=== PATIENT | female | born 1955 | race African-American/Black ===

== ENCOUNTER 2020-01-23 06:26 | Inpatient (IN) | payer OTHER, SELFPAY ==
[2020-01-23] MEDS ORDERED: Morphine 4 MG/ML VIAL ONE ×2 (06:50→09:08)
[2020-01-23] MEDS ORDERED: Ondansetron PF 4 MG/2 ML Vial ONE ×2 (06:50→12:42)
[2020-01-23 07:31] LABS: #Lymphocytes 0.7 thou/uL (1.20-3.40); #Monocytes 0.3 thou/uL (0.11-0.59); #Neutrophils 4.7 thou/uL (1.40-6.50); %Basophils 0.5 % (0.0-1.0); %Eosinophils 0.2 % (0.0-10.0); %Lymphocytes 11.8 % (21.0-51.0); %Monocytes 5.7 % (0.0-10.0); %Neutrophils 81.8 % (42.0-75.0); Hemoglobin 10.8 g/dL (12.0-16.0); Mean Corpuscular HGB CONC 31.3 g/dL (32.0-36.0); Mean Corpuscular Hemoglobin 24.8 pg (27.0-31.0); Mean Corpuscular Volume 79.4 fL (78.0-98.0); Mean Platelet Volume 9.4 fL (7.4-10.4); Platelet Count 302 thou/uL (130-400); RBC Distribution Width 15.8 % (11.5-14.5); Red Blood Cell (RBC) Count 4.33 mill/uL (4.20-5.40); White Blood Cell (WBC) Count 5.8 thou/uL (4.8-10.8)
[2020-01-23 07:49] LABS: ALT (SGPT) 9 U/L (8-55); AST (SGOT) 20 U/L (5-34); Alkaline Phosphatase 122 U/L (40-110); Anion Gap 18 mmol/L (10-20); BUN (Urea Nitrogen) 13 mg/dL (9.8-20.1); Bilirubin, Total 0.6 mg/dL (0.2-1.2); Calc. Creatinine Clearance 0 mL/min (70-130); Calcium 9.1 mg/dL (7.8-10.44); Carbon Dioxide 21 mmol/L (23-31); Chloride 91 mmol/L (98-107); Estimated GFR-MDRD 84; Globulin 4.6 g/dL (2.4-3.5); Glucose 125 mg/dL (80-115); Lipase 15 U/L (8-78); Potassium 3.6 mmol/L (3.5-5.1); Protein, Total 8.6 g/dL (6.0-8.3); Sodium 126 mmol/L (136-145)
[2020-01-23 08:02] LABS: Bacteria/HPF 4+ HPF (None Seen); Bilirubin 1+ (Negative); Blood, Urine Negative (Negative); Clarity Turbid (Clear); Glucose, Urine (Dipstick) Normal (Negative); Leukocyte 250 Leu/uL (Negative); Nitrite Negative (Negative); Protein, Urine (Dipstick) 30 mg/dL (Neg-Trace); RBC/HPF None Seen HPF (0-3); Urobilinogen 3 mg/dL (Less than 2)
--- NOTE | 2020-01-23 08:48 | CT ---
CT ABDOMEN AND PELVIS WITH IV CONTRAST: Date: 01/23/2020 HISTORY: Left-sided abdominal pain, bleeding per rectum this morning, vomiting. FINDINGS: The lung bases are clear. The patient is post cholecystectomy. Multiple heterogeneous liver lesions a re seen measuring up to 2.7 cm in the right lobe close to the dome. The patient is post cholecystecto my. There are calcifications in the pancreas with markedly dilated 9mm pancreatic duct. The spleen, a drenal glands, and right kidney are normal. There is a small low density lesion in the superior pole of the left kidney, likely cyst. There is a tiny amount of free fluid in the pelvis. No free air is s een. No lymphadenopathy is identified. Uterus is present. There is a mass in the sigmoid colon in the left lower quadrant with proximal dilatation of the colon and small bowel loops. There are vascular calcifications without evidence of aneurysmal dilatation of the abdominal aorta. T here are degenerative changes in the spine. IMPRESSION: 1. Findings are highly suspicious for an obstructing sigmoid colon mass in the left lower quadrant w ith resultant bowel obstruction. Further evaluation with colonoscopy is recommended. 2. Multiple liver lesions are suspicious for metastatic disease. 3. Chronic pancreatitis with dilated pancreatic duct. Endoscopic ultrasound would be helpful to excl ude pancreatic mass. POS: CHELAA
[2020-01-23] MEDS ORDERED: Lidocaine 2% PF 5 ML VIAL ONE (09:16)
[2020-01-23] MEDS ORDERED: Lidocaine Viscous Sol 2% 15 ml UD Cup ONE (09:16)
[2020-01-23] MEDS ORDERED: Benzocaine 20% Spray 60 ML CAN ONE (09:16)
[2020-01-23] MEDS ORDERED: Lidocaine 2% MPF 10 ML AMP (For Epidural Use) ONE (09:17)
[2020-01-23] MEDS ORDERED: Lidocaine 4% Topical Sol 50 ML BOT ONE (09:18)
--- NOTE | 2020-01-23 10:53 | RAD ---
PORTABLE CHEST: Date: 01/23/2020 HISTORY: Dyspnea. FINDINGS: Heart size is borderline for portable technique. NG tube is seen with tip in the fundus of the stomac h. Lungs appear clear of infiltrates. No signs of failure. IMPRESSION: Borderline heart size. POS: MIGDALIA
[2020-01-23 11:11] LABS: Prothrombin Time 12.9 SEC (12.0-14.7)
[2020-01-23] MEDS ORDERED: Dextrose 5% in Water 1,000 ML IV PRN (11:29)
[2020-01-23] MEDS ORDERED: hydrALAZINE 20 MG/ML VIAL SLOW IVP PRN (11:29)
[2020-01-23] MEDS ORDERED: Morphine 2 MG/ML SYRINGE SLOW IVP PRN (11:29)
--- NOTE | 2020-01-23 11:30 | HP ---
HISTORY: Ms. Almanzar is a 64-year-old woman, who does not seek routine health care. The patient presented to emergency department today given a history of worsening abdominal pain and distention over the last 2 weeks. Last bowel movement was over a week ago. Does not recall last time she passed flatus. She has had intermittent bloody bowel movements dating over 3 weeks now. She also admits to significant weight loss over the last one year in excess of 20 pounds. She admits to some nausea and emesis over the last 48 hours. She denies any fevers or chills. She admits to worsening fatigue over the last 2 to 3 months. She endorses anorexia. PAST MEDICAL HISTORY: She denies any previous medical problems, although she has been told in the past that she has hypertension, for which she seeks no treatment. PAST SURGICAL HISTORY: Pertinent for cholecystectomy 5 to 6 years ago. SOCIAL HISTORY: She is , lives at home with her , who has chronic kidney disease, dialysis dependent and chronic congestive heart failure. She denies any cigarette smoking, ethanol or illicit drug abuse. FAMILY HISTORY: Notable for diabetes mellitus and essential hypertension as well as heart disease in her mother and her father with heart disease. She denies any family history of cancer or inflammatory bowel disease. CURRENT MEDICATIONS: None. ALLERGIES: THE PATIENT DENIES ANY KNOWN DRUG ALLERGIES. REVIEW OF SYSTEMS: Ten-point review of systems essentially unremarkable except as stated in past medical history and chief complaint. PHYSICAL EXAMINATION: GENERAL: This reveals a 64-year-old frail and thin-appearing woman, who otherwise appears stated age and is in no acute distress at time of my evaluation. HEENT: Pupils equal, round, reactive to light and accommodation. NECK: She has no jugular venous distention noted. HEART: Regular rate and rhythm. No murmurs or gallops auscultated. LUNGS: Clear to auscultation bilaterally. Her breathing is regular and nonlabored. ABDOMEN: Soft and distended. Mild tenderness to palpation with no gross rebound tenderness present. Liver and spleen nonpalpable below costal margin. No abdominal wall hernias are palpable. EXTREMITIES: She has a palpable fullness in the left lower quadrant medial to the ASIS. NEUROLOGIC: No focal deficits present. LABORATORY FINDINGS: Today include a CBC with 5800 white blood cells, hemoglobin and hematocrit of 10.8 and 34.4 respectively. Platelet count is 302,000. Metabolic profile; sodium 126, potassium 3.6, chloride 91, bicarb 21, BUN 13, creatinine 0.83, and glucose 125. Total bilirubin is 0.6, AST and ALT are 20 and 9 respectively. Alkaline phosphatase is 122. Serum lipase is normal at 15. I have personally reviewed the CT scan of the abdomen and pelvis, which is remarkable for complete large bowel obstruction with transition zone in the mid sigmoid colon with an associated sigmoid colonic mass. Multiple small abnormal densities were seen within the liver suspicious for metastatic disease. Additionally, multiple calcifications were seen within the pancreas with associated pancreatic ductal dilatation. IMPRESSION: 1. Acute large bowel obstruction secondary to obstructing sigmoid colon neoplasm. 2. Multiple liver lesions, highly suspicious for metastatic disease. 3. Probable chronic pancreatitis. PLAN: 1. Exploratory laparotomy, sigmoidectomy with end colostomy. 2. No surgical indication for the chronic pancreatitis at this time. 3. The patient will certainly need endoscopic ultrasound electively in about 3 months after this surgery to exclude pancreatic neoplasm as etiology of the pancreatic ductal dilatation. Above findings and plan has been discussed with the patient, who indicates understanding of information given. Postoperatively, once pathology report is obtained, we will consult Oncology. The patient has granted consent for this admission and surgical intervention. I have answered all her questions. Job ID: [id number]
[2020-01-23 11:34] VITALS: BMI 24.4
[2020-01-23] MEDS ORDERED: Iopamidol-370 76% 500 ML 1 ML ONE (11:34)
[2020-01-23] MEDS: Ketorolac Tromethamine 30 MG/ML VIAL IVP SCH ×2 (12:19→19:30)
[2020-01-23] MEDS: Sodium Chloride 0.9% 1,000 ML IV SCH ×2 (12:26→20:00)
[2020-01-23] MEDS ORDERED: Prevnar 13-Val Conj/PF 0.5 ML SYRINGE IM ONE (12:30)
[2020-01-23] MEDS ORDERED: Glycopyrrolate 0.2 MG/ML 5 ML SYRINGE ONE (12:42)
[2020-01-23] MEDS ORDERED: Succinylcholine Chloride 20 MG/ML 10 ml SYRINGE FS ONE (12:42)
[2020-01-23] MEDS ORDERED: Dexamethasone 20 MG/5 ML VIAL ONE (12:42)
[2020-01-23] MEDS ORDERED: Lidocaine 1% PF 5 ML VIAL ONE (12:42)
[2020-01-23] MEDS ORDERED: Rocuronium Bromide 10 MG/ML (10ML VIAL) ONE (12:42)
[2020-01-23] MEDS ORDERED: PROPOFOL 200 MG/20 ML VIAL ONE (12:42)
[2020-01-23] MEDS ORDERED: Midazolam HCl 2 mg/2 ml Vial ONE (12:56)
[2020-01-23] MEDS ORDERED: Fentanyl 250 MCG/5 ML VIAL ONE (12:56)
[2020-01-23] MEDS ORDERED: Lidocaine 1% w/Epinephrine 1:100K 20 ML VIAL ONE (12:58)
[2020-01-23] MEDS ORDERED: Bupivacaine PF 0.5% 30 ML VIAL ONE (12:58)
[2020-01-23] MEDS ORDERED: Fentanyl 100 MCG/2 ML VIAL ONE ×4 (13:17→17:54)
[2020-01-23] MEDS ORDERED: Sodium Chloride 0.9% 30 ML ONE (13:55)
[2020-01-23] MEDS ORDERED: Hetastarch 6% 500 ML 500 ML ONE (14:50)
[2020-01-23] MEDS ORDERED: diphenhydrAMINE 50 MG/ML VIAL IM PRN (16:32)
[2020-01-23] MEDS ORDERED: Naloxone HCl 0.4 mg/ml Vial IV PRN (16:32)
[2020-01-23] MEDS ORDERED: HYDROmorphone 10 mg/100 ml CADD IVPB PRN (16:32)
[2020-01-23] MEDS ORDERED: diphenhydrAMINE 25 MG CAP PO PRN (16:32)
[2020-01-23] MEDS ORDERED: Promethazine HCl 25 MG/ML VIAL IM PRN ×2 (16:32→16:40)
[2020-01-23] MEDS ORDERED: Metoprolol Tartrate 5 MG/5 ML VIAL IVP PRN (16:33)
[2020-01-23] MEDS ORDERED: hydrALAZINE 20 MG/ML VIAL ONE (16:33)
[2020-01-23] MEDS ORDERED: Labetalol HCl 100 MG/20 ML VIAL ONE (16:35)
[2020-01-23] MEDS ORDERED: Ketorolac Tromethamine 30 MG/ML VIAL IVP PRN (16:40)
[2020-01-23] MEDS ORDERED: HYDROmorphone 2 MG/ML VIAL SLOW IVP PRN (16:40)
[2020-01-23] MEDS ORDERED: Promethazine HCl 25 MG/ML VIAL SLOW IVP PRN (16:40)
[2020-01-23] MEDS ORDERED: Labetalol HCl 100 MG/20 ML VIAL SLOW IVP PRN (16:40)
[2020-01-23] MEDS ORDERED: Meperidine HCl/PF 25 MG/ML VIAL SLOW IVP PRN (16:40)
[2020-01-23] MEDS ORDERED: Communication Order-Pharmacy FS SCH (16:45)
[2020-01-23] MEDS ORDERED: hydrALAZINE 20 MG/ML VIAL SLOW IVP SCH (16:45)
[2020-01-23 18:36] LABS: Anisocytosis SLIGHT = 6-15 cells (100X) (0-5/hpf); Band 53 % (5-11); Hemoglobin 7.4 g/dL (12.0-16.0); Hypochromia SLIGHT = 6-15 cells (100X) (0-5/hpf); Lymphocytes 4 % (21-51); MDiff Complete? YES; Mean Corpuscular HGB CONC 31.9 g/dL (32.0-36.0); Mean Corpuscular Hemoglobin 25.8 pg (27.0-31.0); Mean Corpuscular Volume 80.8 fL (78.0-98.0); Mean Platelet Volume 9.1 fL (7.4-10.4); Monocytes 4 % (0-10); Neutrophil 39 % (42-75); Platelet Count 249 thou/uL (130-400); Platelet Morphology Comment Appears Adequate; Polychromasia MODERATE = 3-4 cells (100X) (0-2/hpf); RBC Distribution Width 15.5 % (11.5-14.5); Red Blood Cell (RBC) Count 2.88 mill/uL (4.20-5.40); Reflex for Review?? NO; Target Cells SLIGHT = 2-5 cells (100X) (0-1/hpf); White Blood Cell (WBC) Count 3.5 thou/uL (4.8-10.8)
[2020-01-23] MEDS: Famotidine/PF 20 mg/2ml Vial SLOW IVP SCH (21:04)
[2020-01-23 22:18] LABS: Hemoglobin 8.1 g/dL (12.0-16.0); Platelet Count 251 thou/uL (130-400)
[2020-01-23] MEDS ORDERED: Hydrocortisone Sod Succ/PF 100 mg/2 ml Vial IVP SCH (23:15)
--- NOTE | 2020-01-23 23:56 | OP ---
DATE OF PROCEDURE: 01/23/2020 PREOPERATIVE DIAGNOSES: 1. Acute large bowel obstruction secondary to obstructing sigmoid colon mass. 2. Liver metastasis. POSTOPERATIVE DIAGNOSES: 1. Acute large bowel obstruction secondary to obstructing sigmoid colon mass. 2. Liver metastasis. 3. Small bowel implants. PROCEDURES PERFORMED: 1. Exploratory laparotomy. 2. Sigmoidectomy with end-colostomy. 3. Segmental small bowel resection with primary anastomosis. 4. Wedge liver biopsy. 5. Takedown of splenic flexure. 6. Placement of triple -lumen left subclavian central veinous catheter ANESTHESIA: General endotracheal. ESTIMATED BLOOD LOSS: 100 mL. FLUIDS GIVEN: 500 mL of Hespan and 2000 mL crystalloids. COUNTS: Sponge and instrument counts were verified as correct x2. COMPLICATIONS: None apparent at the time of operation. INDICATIONS FOR OPERATION: This is a 64-year-old woman, who presented to emergency department with progressive abdominal distention and pain over 2 weeks. This is associated with profound weight loss over the last one year. Clinical radiographic examination was consistent with acute large bowel obstruction secondary to obstructing sigmoid colon neoplasm. Multiple liver implants also noted on the CT scan. The patient was brought to the operating room for exploration. Findings are consistent with obstructing sigmoid colon mass with adherent distal small bowel to the sigmoid colon mass. Also noted multiple liver implants. DESCRIPTION OF OPERATION: Informed consent was obtained from the patient and brought to the operating room and placed in supine position. Following general anesthesia, the left chest wall was sterilely prepped and draped in usual fashion. The skin below the left clavicle was anesthetized with 1% lidocaine. The left subclavian vein was cannulated with an 18-gauge introducer needle returning dark venous blood. A guidewire was passed through the needle and advanced into the left subclavian vein without resistance. The needle was withdrawn over the guidewire. A stab incision was made adjacent to the guidewire using 11 scalpel. Dilator was passed over the guidewire dilating the subcutaneous tissues. A triple-lumen central venous catheter was advanced over the guidewire and placed in the left subclavian vein without resistance stopping at the 15 cm yo. Guidewire was removed. Dark venous blood was aspirated from all 3 ports, which were individually flushed with saline. Catheter was secured to the anterior chest wall using 3-0 silk suture at two points. Sterile dressings were applied. Attention was directed to the abdomen following placement of Simmons catheter, which was placed to bedside drain. The abdomen was sterilely prepped and draped in usual fashion. A midline incision was made using 10 scalpel. Incision was carried through subcutaneous tissues and maintained hemostasis using cautery. The fascia was incised along the line of the incision exposing the peritoneum, beneath which was grasped x2 with hemostats. The peritoneal cavity was sharply entered using Metzenbaum scissors. The incision was extended superiorly and inferiorly. Bookwalter retractor was put in place to gain exposure. Small bowel was then run from the ligament of Treitz down to the distal ileum, which was adherent to a mass in the sigmoid colon. This was dissected off this mass temporarily. The remainder of the small bowel was then run down to the ileocecal junction finding no other pathology. Large intestine was inspected from the cecum through the ascending, transverse, descending and sigmoid colon down to the level of the large obstructing mass in the mid sigmoid colon. Distal to this mass, the large bowel was completely decompressed down to normal rectum. Liver was palpated with multiple palpable implants. The previous nasogastric tube was palpated within the gastric lumen. The spleen was noted in normal anatomic location. No palpable implants. At this juncture, I decided to proceed with sigmoidectomy. The left colon was mobilized along the white line of Toldt using Metzenbaum scissors alternated with cautery. The dissection was carried down to the pelvis. The sigmoid colon distal to the palpable mass was also mobilized along the white line of Toldt. I then made a rent through the mesorectum, through which a contour stapler was introduced and the bowel was divided. A second rent was then made approximately 5 cm above the level of the sigmoid colonic mass, through which re-loaded contour stapler was introduced. Again, bowel was divided. The mesentery of the specimen was then sterilely divided using LigaSure device with good hemostasis. Specimen was passed off the operative field for transmission to Pathology. I turned my attention to the distal ileum, which was adherent to the colonic mass. I made a rent proximal and distal to the involved segment, through which CYRIL stapler was introduced and bowel was divided. Mesentery of this specimen was sterilely divided using LigaSure with good hemostasis. Specimen was passed off for Pathology. The small bowel was then reapproximated in a [id number] fashion, anti- mesenteric border using interrupted sutures of 3-0 silk. Enterotomies were made at both apices, through which a reloaded CYRIL stapler was introduced and the functional end-to-end, but anatomic [id number] enteroenterostomy was perfected. The common enterotomies were closed using a re-loaded CYRIL stapler. Resultant mesenteric defect was closed using a running stitch of 2-0 Vicryl. At this juncture, a core incision was made in the left lower quadrant using a 10 scalpel. Incision was carried down to the level of the fascia. I introduced a tonsil clamp through this stab incision, advancing the tip into the peritoneal cavity. Care was taken to avoid injuries to underlying structures. The defect was dilated to two fingerbreadths. Ganga forceps were introduced through this cord defect grasping the stapled end of the descending colon, which was pulled through and secured within the abdominal cavity using interrupted sutures of 3-0 silk at three points. At this juncture, all sponges and instruments were counted as correct x2. Small bowel returned to normal anatomic location. The abdomen was irrigated with saline. The fascia was closed using a running stitch of #1 single stranded PDS. Subcutaneous tissues were pulse lavaged with sterile saline. Good hemostasis was noted in place. Skin incisions were closed using dylan. Sterile dressings were applied. Attention was then directed to the stapled end of the descending colon, which will be used to perform the ostomy. The staple line was excised using Quinn scissors. The functional Leticia colostomy was perfected using interrupted sutures of 3-0 Vicryl. Ostomy appliance put in place. The patient tolerated the operation without any apparent complication and was returned to recovery room in satisfactory condition. Job ID: [id number] [facility]
[2020-01-24] MEDS: Ketorolac Tromethamine 30 MG/ML VIAL IVP SCH ×5 (00:53→23:48)
[2020-01-24 04:43] LABS: Anion Gap 12 mmol/L (10-20); BUN (Urea Nitrogen) 19 mg/dL (9.8-20.1); Calc. Creatinine Clearance 69 mL/min (70-130); Calcium 7.5 mg/dL (7.8-10.44); Carbon Dioxide 20 mmol/L (23-31); Chloride 102 mmol/L (98-107); Estimated GFR-MDRD 73; Glucose 110 mg/dL (80-115); Magnesium 2.3 mg/dL (1.6-2.6); Potassium 4.4 mmol/L (3.5-5.1); Sodium 130 mmol/L (136-145)
[2020-01-24 05:08] LABS: Band 46 % (5-11); Hemoglobin 7.4 g/dL (12.0-16.0); Hypochromia SLIGHT = 6-15 cells (100X) (0-5/hpf); Lymphocytes 4 % (21-51); MDiff Complete? YES; Mean Corpuscular HGB CONC 31.6 g/dL (32.0-36.0); Mean Corpuscular Hemoglobin 25.5 pg (27.0-31.0); Mean Corpuscular Volume 80.6 fL (78.0-98.0); Mean Platelet Volume 9.6 fL (7.4-10.4); Metamyelocyte 1 % (0-0); Monocytes 5 % (0-10); Neutrophil 44 % (42-75); Platelet Count 227 thou/uL (130-400); RBC Distribution Width 15.6 % (11.5-14.5); Red Blood Cell (RBC) Count 2.89 mill/uL (4.20-5.40); White Blood Cell (WBC) Count 6.7 thou/uL (4.8-10.8)
[2020-01-24] MEDS: Hydrocortisone Sod Succ/PF 100 mg/2 ml Vial IVP SCH ×4 (05:45→23:48)
--- NOTE | 2020-01-24 07:02 | PRG ---
DATE OF SERVICE: 01/24/2020 SUBJECTIVE: Ms. Almanzar is a 64-year-old female, who is status post exploratory laparotomy, segmental small bowel resection with primary anastomosis, wedge liver biopsy, take-down of splenic flexure and sigmoidectomy with end-colostomy. This afternoon, the patient was reported to be hypertensive in the PACU, which she had treated. After that, her blood pressure is little bit soft. During this late afternoon, blood pressure is 86 to 90 systolic. Urine is 100 in 3 hours. Blood pressure still continued to be soft; however, she is alert and awake. Pain is well controlled by the TIER LIFT OPERATOR. She reports still no gas or bowel. Pain is well controlled. OBJECTIVE: GENERAL: Currently, the patient is lying in bed comfortable with no acute respiratory distress. VITAL SIGNS: Currently, blood pressure is 100/50_, heart rate is 75, O2 saturation is 96% on 2 L, and temperature is 98.6. LUNGS: Clear bilaterally. HEART: Regular rate and rhythm. ABDOMEN: Soft, mildly distended, pain on incision. Bowel sounds hypoactive. EXTREMITIES: Neurovascularly intact x4. NEUROLOGIC: No focal neurologic deficits. ASSESSMENT: Status post exploratory laparotomy with segmental small bowel resection with primary anastomosis due to small bowel obstruction, secondary to obstructing sigmoid colon mass. Postop day 0. PLAN: The patient will have 500 of normal saline bolus and continue fluid maintenance at 120 an hour. Due to the cortisone level is 19, the patient will have hydrocortisone 100 mg and then 25 mg q.6 hours after that. Recheck H and H. Hemoglobin is 8.1. No blood transfusion for now. Anticipate working with Physical Therapy, Occupational Therapy, and continue n.p.o. with ice chips allowed. Job ID: [id number] [facility] [place]
[2020-01-24] MEDS: Ascorbic Acid 500 mg Chewable Tablet PO SCH ×2 (08:37→17:42)
[2020-01-24] MEDS: Ferrous Sulfate 325 MG TAB PO SCH ×2 (08:37→17:42)
[2020-01-24] MEDS: Famotidine/PF 20 mg/2ml Vial SLOW IVP SCH ×2 (08:37→19:59)
--- NOTE | 2020-01-24 10:07 | PRG ---
DATE OF SERVICE: 01/24/2020 SUBJECTIVE: Ms. Almanzar is a 64-year-old woman who is postop day #1, status post sigmoidectomy with end colostomy and wedge liver biopsy. She is awake and alert this morning reporting adequate pain control. Blood pressure has been essentially soft overnight. She has been placed on hydrocortisone for acute adrenal insufficiency. Urinary output is also marginal. OBJECTIVE: VITAL SIGNS: This morning include blood pressure 93/61, pulse 92, respiratory rate is 18, temperature is 96 degrees Fahrenheit, oxygen saturation is 96% on room air. HEENT: Pupils are equal, round, and reactive to light and accommodation. She has no scleral icterus present. There is no jugular venous distention noted. HEART: Reveals regular rate and rhythm. No murmurs or gallops auscultated. LUNGS: Clear to auscultation bilaterally. Breathing, regular and nonlabored. ABDOMEN: Soft and nondistended. Colostomy is viable and edematous. No stool or gas output at the moment. Incision is intact and dry. NEUROLOGIC: Reveals no focal deficits present. LABORATORY FINDINGS: Include a CBC with 6700 white blood cells, hemoglobin and hematocrit are 7.4 and 23.3 respectively. Platelet count is 227,000. Metabolic profile; sodium 130, potassium 4.4, chloride is 102, bicarb is 20, BUN is 19, creatinine is 0.94, glucose is 110. Magnesium 2.3 and phosphorus 4. Cortisol level is 19.7. IMPRESSION: 1. Postoperative day #1 status post exploratory laparotomy, sigmoidectomy with end colostomy and wedge liver biopsy. 2. Sigmoid colon mass, likely metastatic colon cancer, pathology pending. 3. Acute blood loss on concomitant chronic anemia. 4. Acute hyponatremia, resolving. 5. Acute adrenal insufficiency. PLAN: 1. Continue fluid resuscitation. Monitor urinary output as endpoint. 2. The patient will be transfused 1 unit of packed red blood cells. 3. The patient will be started on iron replacement and vitamin C. 4. Increase activity. The patient is certainly hemodynamically stable for transfer to general surgical floor where we will increase activity per Physical and Occupational Therapy. Oncology consultation is pending the pathology report. Job ID: [id number]
[2020-01-24] MEDS: Sodium Chloride 0.9% 1,000 ML IV SCH ×2 (10:13→18:19)
[2020-01-24] MEDS: diphenhydrAMINE 50 MG/ML VIAL IVP PRN ×3 (10:57→23:48)
--- NOTE | 2020-01-24 11:14 | RAD ---
PORTABLE CHEST: Date: 01/24/2020 HISTORY: Central line placement. COMPARISON: 01/23/2020. FINDINGS: Central line via the left subclavian vein has been placed. The tip overlies the upper SVC and appears adequately positioned. A NG tube remains in place with tip passing through the EG junction and residing in the upper left qu adrant. The lungs appear clear. No acute process apparent. IMPRESSION: Central line appears adequately positioned on chest x-ray. POS: [facility]
--- NOTE | 2020-01-25 01:31 | PRG ---
DATE OF SERVICE: 01/24/2020 SUBJECTIVE: Ms. Almanzar was seen on rounds this evening. The patient was transferred from [facility] today. The patient reports pain is well controlled. Her blood pressure has been stable 100 to 120 systolic. She is feeling better. She had some bowel on her ileostomy. She developed no fever or shortness of breath. She is able to walk around the room with minimal difficulty. OBJECTIVE: GENERAL: Currently, the patient is lying in bed comfortable with no acute respiratory distress. VITAL SIGNS: Temperature is 98, heart rate 100s, respiratory rate 18, O2 saturation 99% on room air, blood pressure 137/76. LUNGS: Clear bilaterally. HEART: Regular rate and rhythm. ABDOMEN: Soft, mildly distended. Some stool on ileostomy. EXTREMITIES: Neurovascularly intact. ASSESSMENT: Status post exploratory laparotomy with segmental small bowel resection and primary anastomosis due to small bowel obstruction secondary to obstruction of sigmoid colon mass, postop day #1, adrenal insufficiency, low urine output due to acute blood loss anemia on chronic anemia and hypovolemia, improved. PLAN: We will continue supportive care. Continue pain control. Continue working with physical therapy and occupational therapy. Anticipate advance diet for clear liquids tomorrow. Job ID: [id number]
[2020-01-25 03:44] LABS: #Lymphocytes 0.2 thou/uL (1.20-3.40); #Monocytes 0.4 thou/uL (0.11-0.59); #Neutrophils 4.7 thou/uL (1.40-6.50); %Monocytes 6.6 % (0.0-10.0); %Neutrophils 89.4 % (42.0-75.0); Hemoglobin 7.5 g/dL (12.0-16.0); Mean Corpuscular HGB CONC 31.4 g/dL (32.0-36.0); Mean Corpuscular Hemoglobin 26.2 pg (27.0-31.0); Mean Corpuscular Volume 83.3 fL (78.0-98.0); Mean Platelet Volume 9.3 fL (7.4-10.4); Platelet Count 193 thou/uL (130-400); RBC Distribution Width 15.1 % (11.5-14.5); Red Blood Cell (RBC) Count 2.85 mill/uL (4.20-5.40); White Blood Cell (WBC) Count 5.3 thou/uL (4.8-10.8)
[2020-01-25 03:54] LABS: Anion Gap 9 mmol/L (10-20); BUN (Urea Nitrogen) 26 mg/dL (9.8-20.1); Calc. Creatinine Clearance 78 mL/min (70-130); Carbon Dioxide 23 mmol/L (23-31); Chloride 106 mmol/L (98-107); Estimated GFR-MDRD 83; Glucose 106 mg/dL (80-115); Potassium 4.2 mmol/L (3.5-5.1); Sodium 134 mmol/L (136-145)
[2020-01-25] MEDS: Ketorolac Tromethamine 30 MG/ML VIAL IVP SCH (05:32)
[2020-01-25] MEDS: Hydrocortisone Sod Succ/PF 100 mg/2 ml Vial IVP SCH ×3 (05:33→17:46)
[2020-01-25] MEDS: diphenhydrAMINE 50 MG/ML VIAL IVP PRN (05:33)
[2020-01-25] MEDS: Sodium Chloride 0.9% 1,000 ML IV SCH ×2 (05:37→09:41)
[2020-01-25] MEDS: Ascorbic Acid 500 mg Chewable Tablet PO SCH ×2 (09:40→15:59)
[2020-01-25] MEDS: Famotidine 20 MG TAB PO SCH ×2 (09:41→19:34)
[2020-01-25] MEDS: Ferrous Sulfate 325 MG TAB PO SCH ×2 (09:41→15:59)
[2020-01-25] MEDS ORDERED: traMADol HCl 50 MG TAB PO PRN ×2 (10:59)
[2020-01-25] MEDS ORDERED: Ibuprofen 800 MG TAB PO SCH (11:00)
--- NOTE | 2020-01-25 12:10 | PRG ---
DATE OF SERVICE: 01/25/2020 SUBJECTIVE: Ms. Almanzar is a 64-year-old woman postop day #2, status post exploratory laparotomy, sigmoidectomy with end colostomy and wedge liver biopsy. The patient has colon mass which is presumed metastatic adenocarcinoma. She is awake and alert this morning. Reports adequate pain control. Ostomy is functional with semi-formed stool. The patient reportedly had brief episodes of generalized seizure this morning which lasted less than 10 seconds witnessed by the patient's nurse. She had no urinary incontinence. This morning, she is quite awake and alert. Farhan coma Scale is 15. OBJECTIVE: VITAL SIGNS: Include blood pressure 129/68, pulse 97, respiratory rate is 16, temperature 98.4 degrees Fahrenheit, oxygen saturation is 97% on room air. HEENT: Pupils equal, round, reactive to light and accommodation. She has no jugular venous distention noted. HEART: Reveals regular rate and rhythm. No murmurs or gallops auscultated. LUNGS: Clear to auscultation bilaterally. Her breathing is regular and nonlabored. ABDOMEN: Soft and nondistended. Incision is intact and dry. Colostomy is viable and functional with stool and gas. She clearly has no peritoneal signs on examination. LABORATORY FINDINGS: Today include a CBC with 5300 white blood cells, hemoglobin and hematocrit stable at 7.5 and 23.7 respectively. The platelet count is 193,000. Metabolic profile; sodium 134, potassium is 4.2, chloride is 106, bicarb is 23, BUN is 26, creatinine 0.84, glucose is 106. Prolactin level is 27.59. Pathology report is pending at the time of this dictation. IMPRESSIONS: 1. Postop day #2 status post exploratory laparotomy, sigmoidectomy with wedge liver biopsy for colon obstruction secondary to colonic neoplasm. 2. Colon neoplasm likely metastatic adenocarcinoma. Pathology report is pending. 3. Apparent seizure activity. PLAN: 1. Continue with iron replacement therapy. 2. We will consult Oncology for probable stage IV metastatic colon cancer. 3. Given the apparent seizure activity in this patient with likely metastatic disease, we will obtain a brain CT scan to rule out any brain metastasis. 4. Nasogastric tube will be discontinued and the patient started on oral intake. 5. Simmons catheter and IV fluid would also be discontinued at this time. 6. The patient is encouraged to increase activity per Physical and Occupational therapy. 7. Ostomy teaching will commence per wound nursing. Above findings and plan discussed with the patient, who indicates understanding of information given. Job ID: [id number]
--- NOTE | 2020-01-25 12:19 | CT ---
Exam: Head CT with and without contrast HISTORY: Headache. Dizziness. Recent diagnosis of liver cancer. COMPARISON: None FINDINGS: Noncontrast head CT: No parenchymal hemorrhage No extra-axial hematoma No midline shift Basilar cisterns are patent. Brain volume, age-appropriate. Cortical wolf-white matter differentiation is preserved No hydrocephalus Adequate aeration of the paranasal sinuses and mastoid air cells. Intact calvarium. Postcontrast images: No pathologic enhancement of the brain parenchyma IMPRESSION: 1. No acute intracranial process 2. No pathologic enhancement of the brain parenchyma
[2020-01-25] MEDS: Acetaminophen 500 MG TAB PO SCH ×2 (12:40→17:45)
[2020-01-25] MEDS: traMADol HCl 50 MG TAB PO SCH ×2 (12:41→17:45)
[2020-01-25] MEDS ORDERED: Iopamidol 370 76% 100 ML VIAL ONE (14:10)
[2020-01-25] MEDS: Ibuprofen 200 MG TAB PO SCH ×2 (14:23→19:35)
[2020-01-25] MEDS: traMADol HCl 50 MG TAB PO PRN (16:00)
[2020-01-25] MEDS: Acetaminophen 325 MG TAB PO SCH (18:07)
[2020-01-26] MEDS: Acetaminophen 325 MG TAB PO SCH ×5 (00:25→23:39)
[2020-01-26] MEDS: traMADol HCl 50 MG TAB PO SCH ×5 (00:26→23:39)
[2020-01-26] MEDS: Sulfameth/Trimethoprim DS 800-160mg TAB PO SCH ×2 (00:26→08:36)
[2020-01-26] MEDS: Cyclobenzaprine 10 MG TAB PO PRN (00:29)
--- NOTE | 2020-01-26 01:30 | PRG ---
DATE OF SERVICE: 01/25/2020 SUBJECTIVE: Ms. Almanzar is currently in surgical floor. The patient was seen on round this evening. The patient is alert and awake. Reports pain is well controlled. She tolerated with her liquid diet. Vital signs stable. She developed no fever or shortness of breath. Her ostomy is working with stool coming out at the moment. She reports no nausea or vomiting. Her urine is adequate. OBJECTIVE: GENERAL: Currently patient lying in bed comfortable with no acute respiratory distress. LUNGS: Clear bilaterally. HEART: Regular rate and rhythm. ABDOMEN: Soft, nondistended. Incision dry and intact. Colostomy is viable and functional with stool and gas. ASSESSMENT: Status post exploratory laparotomy, sigmoidectomy secondary to colonic neoplasm. PLAN: Plan will be to continue supportive care. Continue pain control. We will check CBC tomorrow. Encourage working with Physical Therapy and Occupational Therapy. UA result shows UTI. We will start Bactrim treatment for UTI for three days. Job ID: [id number]
[2020-01-26] MEDS: traMADol HCl 50 MG TAB PO PRN ×2 (05:00→23:40)
[2020-01-26] MEDS: Ibuprofen 200 MG TAB PO SCH ×3 (05:00→21:48)
[2020-01-26 06:20] LABS: Band 21 % (5-11); Hemoglobin 8.6 g/dL (12.0-16.0); Hypochromia SLIGHT = 6-15 cells (100X) (0-5/hpf); Lymphocytes 5 % (21-51); MDiff Complete? YES; Mean Corpuscular HGB CONC 31.8 g/dL (32.0-36.0); Mean Corpuscular Hemoglobin 26.1 pg (27.0-31.0); Mean Platelet Volume 8.9 fL (7.4-10.4); Monocytes 45 % (0-10); Neutrophil 29 % (42-75); Platelet Count 213 thou/uL (130-400); Platelet Morphology Comment Appears Adequate; RBC Distribution Width 15.2 % (11.5-14.5); Red Blood Cell (RBC) Count 3.32 mill/uL (4.20-5.40)
[2020-01-26] MEDS ORDERED: Sodium Chloride 0.9% 1,000 ML IV SCH (07:00)
[2020-01-26] MEDS: Famotidine 20 MG TAB PO SCH ×2 (08:36→21:47)
[2020-01-26] MEDS: Ascorbic Acid 500 mg Chewable Tablet PO SCH ×2 (08:36→17:10)
[2020-01-26] MEDS: Ferrous Sulfate 325 MG TAB PO SCH ×2 (08:36→17:09)
[2020-01-26] MEDS ORDERED: Morphine 4 MG/ML VIAL ONE (09:57)
[2020-01-26] MEDS ORDERED: Morphine 4 MG/ML VIAL SLOW IVP SCH (10:00)
[2020-01-26 11:00] LABS: Anion Gap 11 mmol/L (10-20); BUN (Urea Nitrogen) 23 mg/dL (9.8-20.1); Calc. Creatinine Clearance 80 mL/min (70-130); Carbon Dioxide 19 mmol/L (23-31); Chloride 101 mmol/L (98-107); Estimated GFR-MDRD 85; Glucose 86 mg/dL (80-115); Magnesium 2.7 mg/dL (1.6-2.6); Phosphorus 3.8 mg/dL (2.3-4.7); Potassium 3.8 mmol/L (3.5-5.1); Sodium 127 mmol/L (136-145)
--- NOTE | 2020-01-26 11:36 | PRG ---
DATE OF SERVICE: 01/26/2020 SUBJECTIVE: Ms. Almanzar is a 64-year-old woman, postoperative day #3, status post exploratory laparotomy, sigmoidectomy with end colostomy, and wedge liver biopsy. She is awake and alert this morning. Reports adequate pain control. Colostomy has been functional. Urinary output is adequate for the patient's age and weight. OBJECTIVE: VITAL SIGNS: Includes blood pressure 126/76, pulse 75, respiratory rate is 14, temperature 97.9 degrees Fahrenheit, and oxygen saturation is 100% on room air. HEART: Reveals regular rate and rhythm. LUNGS: Clear to auscultation bilaterally. Breathing, regular and unlabored. ABDOMEN: Soft and nondistended. Incision is intact. There is minimum redness in the most inferior aspect of the midline incision. The staple was removed and cloudy serous fluid egressed. Colostomy is viable and functional with formed stool and gas. LABORATORY DATA: Laboratory findings include a CBC with 5000 white blood cells, hemoglobin and hematocrit 8.6 and 27.2 respectively. The platelet count is 213,000. Metabolic profile; sodium 127, potassium 3.8, chloride is 101, bicarb is 19, BUN 23, creatinine 0.82, glucose is 86, magnesium 2.7, and phosphorus is 3.8. IMPRESSION: 1. Postop day #3, status post exploratory laparotomy with sigmoidectomy and end colostomy. 2. Acute hyponatremia. 3. Colon neoplasm, likely stage 4 metastatic adenocarcinoma of the colon. Pathology report is pending. PLAN: 1. Advance diet and activity. 2. The patient will be seen by Oncology. 3. Anticipate discharge in next few days. Job ID: [id number]
[2020-01-26] MEDS ORDERED: Piperacillin/Tazobactam 3.375 GM in Sodium Chloride 0.9% 100 ML IVPB SCH (12:00)
--- NOTE | 2020-01-26 15:44 | CT ---
CT THORAX WITH CONTRAST: 01/26/20 HISTORY: 64-year-old female with colon cancer, staging. TECHNIQUE: IV iodinated contrast media: 90 mL Isovue 370 COMPARISON: No previous chest CTs. FINDINGS: In the right side of the T11 vertebral body, there is an ill-defined mildly sclerotic approximately 2 .5 x 1.5 cm osseous lesion questionable for osseous metastatic deposit. There is a moderate amount of free fluid throughout the visualized upper portions of the peritoneal c avity diffusely, but especially in the bilateral upper quadrants. Attenuation is 17 HU, which could r epresent dilute blood. There are numerous foci of extraluminal, free intraperitoneal gas within this free fluid, presumably from recent laparotomy (at least one ventral skin staple is noted). The free f luid is new compared to CT of abdomen and pelvis of 01/23/2020. The previously demonstrated severe dil ation of small bowel loops and dilation of colon, have resolved. There are new small bilateral pleural effusions, with adjacent mild passive atelectasis in the bilate ral lower lobes. No suspicious pulmonary nodules are identified. No mediastinal or hilar lymphadenopa thy. Heavy atherosclerotic calcification of LAD. Small pericardial effusion. No pneumothorax or pulmonary edema. There is a partially imaged large heterogeneously enhancing, well circumscribed left thyroid n odule which measures 3 x 4.5 cm in transverse and AP dimensions. The upper portion of this mass is no t included in the images. It displaces the trachea to the right. There are several moderately low attenuation lesion sin the left and right lobes of the liver highly suspicious for hepatic metastases. There are cholecystectomy clips in the gallbladder fossa. The pancreatic duct is diffusely dilated th roughout the body and tail, up to 5 mm at the tail. At the pancreatic head, the pancreatic duct is mo re severely dilated up to 10 mm. There are scattered tiny calcifications in the pancreatic body and t ail, consistent with chronic pancreatitis. IMPRESSION: 1. New moderate volume of free intraperitoneal fluid. 2. New finding of pneumoperitoneum, apparently due to recent laparotomy. 3. New small bilateral pleural effusions. 4. No evidence of pulmonary metastases. 5. Nonspecific sclerotic lesion at right side of T11 vertebral body. Recommend nuclear medicine whole body bone scan to further evaluate this lesion and to search for other lesions to aid in diagno sis. 6. Moderately large left thyroid nodule. 7. Evidence for hepatic metastases. 8. Diffuse dilation of the pancreatic duct, raising the possibility of occult obstructing lesion at the pancreatic head. 9. Pancreatic calcifications: evidence for chronic pancreatitis. Code T JN R POS: JIN
--- NOTE | 2020-01-26 17:51 | CON ---
DATE OF CONSULTATION: REASON FOR CONSULTATION: Colon cancer. HISTORY OF PRESENT ILLNESS: Ms. Almanzar is a pleasant 64-year-old female who presented to the emergency room on the with abdominal pain and distention, last seen over 2 weeks. She had intermittent bloody stools and weight loss. She underwent an abdominal and pelvis CT scan, which showed an obstructing sigmoid colon mass in the left lower quadrant with bowel obstruction. She had a 2.7 cm mass in the right lobe of her liver. She had a dilated pancreatic duct, consistent with pancreatitis. The patient does have a history of daily alcohol use, marijuana, and tobacco use. She was admitted for bowel obstruction. Dr. Sarah was consulted, and performed an exploratory laparotomy with sigmoidectomy and end colostomy. He noted multiple liver lesions, suspicious for metastatic disease and did a wedge resection of one of those lesions. Pathology of the colon confirmed invasive moderately differentiated adenocarcinoma, 5 cm in greatest dimension. It invaded the adjacent small bowel. There were 5 tumor deposits, 8 lymph nodes were negative for metastatic disease. Her small bowel resection showed focal adenocarcinoma in the subserosal tissue. The margins were free of malignancy. Unfortunately, her liver biopsy confirmed metastatic colorectal adenocarcinoma. She is stage IV cancer. She is recovering at bedside, and denies any complaints of pain. She has good oral intake at this time. She does have hyponatremia, consistent with alcohol use. Her CEA was 13.63 postoperatively. PAST MEDICAL HISTORY: 1. Daily alcohol use. 2. Tobacco use. 3. Marijuana use. 4. Hypertension. PAST SURGICAL HISTORY: Cholecystectomy. ALLERGIES: NO KNOWN DRUG ALLERGIES. HOME MEDICATIONS: Clonidine 0.1 mg daily. FAMILY HISTORY: No known history of cancer. SOCIAL HISTORY: , lives with her spouse, cares for his multiple family members. Again, daily alcohol, tobacco, and marijuana use. REVIEW OF SYSTEMS: A 10-point review of systems is negative. PHYSICAL EXAMINATION: VITAL SIGNS: Temperature 97.6, pulse is 83, respiratory rate 14, BP is 93/60, and she is 96% on room air. GENERAL: This is a thin female, in no acute distress. HEENT: Normocephalic and atraumatic. Pupils are equal and reactive to light. NECK: Supple. CVS: Regular rate. LUNGS: Clear. ABDOMEN: Soft. She has a colostomy in the left lower quadrant. EXTREMITIES: There is no clubbing or cyanosis. SKIN: She had scattered dark discolorations of bilateral chest and arms. NEUROLOGIC: Nonfocal. PERTINENT LABORATORY DATA AND X-RAYS: Current WBCs are 5, hemoglobin 8.6, hematocrit 27.2, platelet count is 213,000, 29% neutrophils, 21% bands, 5% lymphocytes, and 45% monocytes. PT is 12.9, INR is 1, and PTT is 29. Sodium 127, potassium 3.8, chloride 101, CO2 is 19, BUN is 23, creatinine 0.82, and calcium is 8. Phosphorus 3.8. Magnesium 2.7. Bilirubin 0.6, AST is 20, ALT is 9, alkaline phosphatase is 122, serum total protein is 8.6, albumin 4, and globulin 4.6. CEA is 13.63. Urine shows 4+ bacteria with positive leukocyte esterase. ASSESSMENT: 1. Stage IV metastatic adenocarcinoma of the colon. 2. Hyponatremia. 3. Urinary tract infection. DISCUSSION: The patient is recovering from her exploratory laparotomy. She states she has good oral intake. Good output noted in the colostomy. She denies any pain. She will need a MediPort for chemotherapy. This is planned for the next several days and then she will likely go home. She has an appointment to see Dr. Grey on 02/05. She needs to be seen by the financial counselors prior to discharge to assist with applying for financial assistance as she has no insurance. Thank you for the consult. We will be happy to take care of this pleasant lady. Job ID: [id number]
[2020-01-26] MEDS: Amoxicillin/Potassium Clav 875 MG TAB PO SCH (21:48)
[2020-01-26] MEDS: Saccharomyces boulardii 250 MG CAP PO SCH (21:48)
--- NOTE | 2020-01-27 00:50 | PRG ---
DATE OF SERVICE: 01/26/2020 SUBJECTIVE: Ms. Almanzar remained in surgical floor. The patient was seen on round this evening. The patient reports pain was well controlled. She is able to tolerate with her regular diet. Her colostomy is functional. Her urine is adequate. OBJECTIVE: GENERAL: The patient is lying in bed, comfortable, in no acute respiratory distress. VITAL SIGNS: Stable. LUNGS: Clear bilaterally. HEART: Regular rate and rhythm. ABDOMEN: Soft, nondistended. Incision intact. Colostomy viable with stool and gas. ASSESSMENT: Status post exploratory laparotomy with sigmoidectomy and end colostomy, colon cancer. PLAN: Plan will be to continue supportive care. Continue pain control. Anticipate discharge home tomorrow. The patient has an appointment to see Dr. Grey on February 05 for continued treatment of her colon cancer. Job ID: [id number]
[2020-01-27] MEDS: Acetaminophen 325 MG TAB PO SCH ×3 (05:22→18:14)
[2020-01-27] MEDS: traMADol HCl 50 MG TAB PO SCH ×3 (05:23→18:12)
[2020-01-27] MEDS: Ibuprofen 200 MG TAB PO SCH ×3 (05:23→21:47)
[2020-01-27] MEDS: traMADol HCl 50 MG TAB PO PRN ×2 (05:24→11:57)
[2020-01-27] MEDS: Famotidine 20 MG TAB PO SCH ×2 (09:32→21:47)
[2020-01-27] MEDS: Saccharomyces boulardii 250 MG CAP PO SCH ×2 (09:32→21:47)
[2020-01-27] MEDS: Amoxicillin/Potassium Clav 875 MG TAB PO SCH ×2 (09:32→21:47)
[2020-01-27] MEDS: Ascorbic Acid 500 mg Chewable Tablet PO SCH ×2 (09:33→18:13)
[2020-01-27] MEDS: Ferrous Sulfate 325 MG TAB PO SCH ×2 (09:34→18:13)
--- NOTE | 2020-01-27 09:48 | EKG ---
Test Reason : Blood Pressure : / mmHG Vent. Rate : 085 BPM Atrial Rate : 085 BPM P-R Int : 166 ms QRS Dur : 066 ms QT Int : 390 ms P-R-T Axes : 081 002 039 degrees QTc Int : 464 ms Normal sinus rhythm Possible Left atrial enlargement Low voltage QRS Septal infarct , age undetermined Abnormal ECG Confirmed by SHWETA VANN DO ([id number]), deputy editor in chief YUSUF ELDER ([id number]) on 01/27/2020 9:48:01 AM Referred By: Confirmed By:SHWETA VANN DO
--- NOTE | 2020-01-27 16:12 | PRG ---
DATE OF SERVICE: 01/27/2020 SUBJECTIVE: The patient remains on the surgical floor. She is postop day 4, status post exploratory laparotomy, sigmoidectomy with end colostomy and wedge liver biopsy. She had no issues overnight. Her pain is controlled. Her ostomy is functioning properly. She has been out of bed. The patient's pathology report has returned as a stage IV metastatic adenocarcinoma of the colon. She remains on p.o. antibiotics to treat her urinary tract infection. PHYSICAL EXAMINATION: VITAL SIGNS: Temperature 97.6, heart rate 92, blood pressure 90/68, respirations 14, oxygen saturation 94% on room air. GENERAL: The patient is resting comfortably in bed. She is awake, alert, and conversant. LUNGS: Clear to auscultation bilaterally. HEART: Regular rate and rhythm. ABDOMEN: Soft, nondistended. Her incision is intact. She did have two dylan removed yesterday. These areas have significantly decreased redness now. There is still some serosanguineous fluid noted, but no purulent discharge has been seen. Her colostomy is viable and functioning. There is stool and gas in her colostomy bag. LABORATORY DATA: There are no labs or radiographs to review this morning. ASSESSMENT: 1. Status post exploratory laparotomy with sigmoidectomy and end colostomy, postoperative day four. 2. Acute hyponatremia, we will do fluid restriction and check labs in the morning. 3. Stage IV metastatic adenocarcinoma of the colon. Per Oncology, she will need a MediPort and follow up with Dr. Grey on 02/05. PLAN: Plan will be to continue supportive care. This patient was discussed with Dr. Sarah this morning. Job ID: [id number]
[2020-01-27] MEDS ORDERED: Fentanyl 100 MCG/2 ML VIAL SLOW IVP SCH (19:15)
[2020-01-27 19:25] LABS: Hemoglobin 8.9 g/dL (12.0-16.0); Mean Corpuscular Hemoglobin 24.8 pg (27.0-31.0); Mean Corpuscular Volume 82.7 fL (78.0-98.0); Mean Platelet Volume 9.1 fL (7.4-10.4); Platelet Count 165 thou/uL (130-400); RBC Distribution Width 15.6 % (11.5-14.5); Red Blood Cell (RBC) Count 3.59 mill/uL (4.20-5.40)
[2020-01-27 19:43] LABS: Band 2 % (5-11); Eosinophils 1 % (0-10); Hypochromia SLIGHT = 6-15 cells (100X) (0-5/hpf); Lymphocytes 5 % (21-51); MDiff Complete? YES; Monocytes 79 % (0-10); Neutrophil 13 % (42-75); Nucleated RBC 2 % (0); Platelet Morphology Comment Appears Adequate; White Blood Cell (WBC) Count 5.2 thou/uL (4.8-10.8)
[2020-01-27 19:49] LABS: Anion Gap 17 mmol/L (10-20); BUN (Urea Nitrogen) 28 mg/dL (9.8-20.1); Calc. Creatinine Clearance 30 mL/min (70-130); Carbon Dioxide 15 mmol/L (23-31); Chloride 98 mmol/L (98-107); Estimated GFR-MDRD 28; Glucose 40 mg/dL (80-115); Phosphorus 4.3 mg/dL (2.3-4.7); Potassium 4.6 mmol/L (3.5-5.1); Sodium 125 mmol/L (136-145)
[2020-01-27] MEDS: Dextrose 50% Abboject 50 ML SYRINGE SLOW IVP PRN ×2 (20:18→21:00)
[2020-01-27] MEDS: Sodium Chloride 0.9% 1,000 ML IV SCH (21:20)
--- NOTE | 2020-01-27 22:11 | PRG ---
DATE OF SERVICE: 01/27/2020 SUBJECTIVE: Ms. Almanzar is a 64-year-old female with status post exploratory laparotomy with end colostomy, stage IV colon cancer. The patient has been denying her diet. She did not want to drink or eat anything due to her poor appetite. Other than that, she feels tired and not feeling very well. Her blood pressure is low. Her blood glucose, she also experienced hypoglycemia this evening, in which she was treated with dextrose 50%, slow IV push x2. Her cortisone level is marginal. She also experienced acute kidney injury and hyponatremia due to poor diet and hypovolemia. OBJECTIVE: GENERAL: Currently patient lying down in bed with no acute respiratory distress. The patient looks fatigued and pale. VITAL SIGNS: Temperature 98, heart rate 86, respiratory rate 16, O2 saturation 97 on room air, blood pressure 95/60. LUNGS: Clear bilaterally. HEART: Regular rate and rhythm. ABDOMEN: Soft, nondistended. Colostomy functioning with formed stool and gas. LABORATORY DATA: Labs this evening showed sodium 125, potassium 4.6, creatinine 2.19, and glucose 40. Recheck point of care glucose at 2128 is 172. ASSESSMENT: 1. Status post exploratory laparotomy with sigmoidectomy and end colostomy. 2. Hyponatremia, hypoglycemia due to poor diet. 3. Acute kidney injury due to hypovolemia, secondary to poor diet and loose stools 2 days earlier. PLAN: Will be aggressive hypoglycemia treatment, IV fluids for acute kidney injury. Encourage intact oral intake by juice and Ensure. Monitor blood pressure closely. Recheck [facility] tomorrow. Job ID: [id number]
[2020-01-28] MEDS: Acetaminophen 325 MG TAB PO SCH ×4 (00:25→17:32)
[2020-01-28] MEDS: traMADol HCl 50 MG TAB PO SCH ×4 (00:26→17:32)
[2020-01-28] MEDS: Ibuprofen 200 MG TAB PO SCH ×3 (05:11→21:32)
[2020-01-28 05:27] LABS: Anion Gap 15 mmol/L (10-20); BUN (Urea Nitrogen) 27 mg/dL (9.8-20.1); Calc. Creatinine Clearance 32 mL/min (70-130); Calcium 7.6 mg/dL (7.8-10.44); Carbon Dioxide 15 mmol/L (23-31); Chloride 100 mmol/L (98-107); Estimated GFR-MDRD 30; Glucose 64 mg/dL (80-115); Magnesium 2.9 mg/dL (1.6-2.6); Phosphorus 3.7 mg/dL (2.3-4.7); Potassium 3.9 mmol/L (3.5-5.1); Sodium 126 mmol/L (136-145)
[2020-01-28] MEDS: Sodium Chloride 0.9% 1,000 ML IV SCH (06:00)
[2020-01-28] MEDS ORDERED: Dextrose 5 % And 0.9 % NaCl 1,000 ML IV SCH ×2 (07:15→16:45)
[2020-01-28] MEDS: Ascorbic Acid 500 mg Chewable Tablet PO SCH ×2 (08:02→17:32)
[2020-01-28] MEDS: Ferrous Sulfate 325 MG TAB PO SCH ×2 (08:02→17:32)
[2020-01-28] MEDS: Amoxicillin/Potassium Clav 875 MG TAB PO SCH ×2 (08:02→21:32)
[2020-01-28] MEDS: Saccharomyces boulardii 250 MG CAP PO SCH ×2 (08:02→21:32)
[2020-01-28] MEDS: Famotidine 20 MG TAB PO SCH (08:02)
[2020-01-28] MEDS ORDERED: Fentanyl 100 MCG/2 ML VIAL SLOW IVP SCH (09:00)
--- NOTE | 2020-01-28 12:50 | PRG ---
DATE OF SERVICE: 01/28/2020 SUBJECTIVE: The patient remains on the surgical floor. She is postop day 5, status post exploratory laparotomy, sigmoidectomy with end colostomy and wedge liver biopsy. Yesterday, she had a NATALIIA incisional VAC placed on her midline incision. Unfortunately, the amount of serous fluid cause it to lose its seal and it was discontinued late in the afternoon. Overnight, she did not have any issues, though she is still not taking enough oral nutrition. This was discussed with her at length again this morning, at which time, she agreed to try harder today. The patient is also due to get a nuclear medicine bone scan study ordered by Dr. Grey of Oncology. OBJECTIVE: VITAL SIGNS: Temperature is 97.5, heart rate 86, blood pressure 102/61, respirations 18, and oxygen saturation 98% on room air. GENERAL: The patient is resting comfortably in bed. She was asleep when I entered the room, but awakened easily. She was alert and appropriate. LUNGS: Clear to auscultation bilaterally. HEART: Regular rate and rhythm. ABDOMEN: Midline incision, has serosanguineous fluid. No evidence of purulent discharge. There is decreased redness. One area of her midline incision in the midportion of the staple was loose and it was removed. Ostomy is functioning with stool and gas in the device. LABORATORY FINDINGS: Sodium 126, potassium 3.9, chloride 100, CO2 of 15, BUN 27, creatinine 2.04, glucose 64, magnesium 2.9, and phosphorus 3.7. ASSESSMENT: 1. Status post exploratory laparotomy with sigmoidectomy and end colostomy postop day 5. 2. Acute hyponatremia. We will continue fluid restriction. Add salt tablets. 3. Hypoglycemia. We will change maintenance fluids to D5 normal saline. 4. Stage 4 metastatic adenocarcinoma of the colon, today nuclear medicine bone scan per Dr. Grey. The patient will also require MediPort, we will discuss placement of this tomorrow. PLAN: Plan will be to continue supportive care. Encourage nutrition. Encouraged out of bed and plan for MediPort placement tomorrow. The patient was discussed with Dr. Sarah this morning. Job ID: [id number]
--- NOTE | 2020-01-28 14:59 | NM ---
STANDARD BONE SCAN WHOLE BODY IMAGING: Date: 01/28/2020 HISTORY: Possible bone metastasis, follow-up chest CT scan with attention to a right T11 vertebral body area o f increased bone density. FINDINGS: Patient was injected with 31.8 mCi technetium-99m MDP intravenously. Whole body images demonstrate no evidence of abnormal or altered osteogenesis. There is bilateral renal and bladder activity. Particu larly in the region of the right T11 vertebral body, there is an old focal area of increased activity that would suggest metastatic focus. IMPRESSION: Unremarkable total body bone scan. No evidence for bone metastasis. No evidence for focal abnormal in creased activity in the area of concern on the prior CT, the right T11 vertebral body region. POS: [facility]
[2020-01-28] MEDS ORDERED: Furosemide 20 MG/2 ML VIAL SLOW IVP SCH (16:45)
[2020-01-28] MEDS: Sodium Chloride 1 GM TAB PO SCH (21:32)
[2020-01-28] MEDS: Dextrose 5 % And 0.9 % NaCl 1,000 ML IV SCH (21:33)
--- NOTE | 2020-01-29 00:25 | PRG ---
DATE OF SERVICE: 01/28/2020 SUBJECTIVE: Ms. Almanzar remains in surgical floor. She was seen on round this evening. The patient remained poor appetite, refused to eat or drink, stated that she feels full. Her hypoglycemia is relatively controlled. Her blood pressure is getting better. She developed no fever or shortness of breath. Her colostomy is working. OBJECTIVE: GENERAL: Currently, the patient is lying in bed comfortable with no acute respiratory distress. VITAL SIGNS: Temperature 97.5, heart rate 86, respiratory rate 16, O2 saturation 98% on room air, blood pressure 98/52 and then 110/61. LUNGS: Clear bilaterally. HEART: Regular rate and rhythm. ABDOMEN: Soft, nondistended. No peritonitis sign. Colostomy viable with formed stool. Midline incision is clean and dry. Wound VAC is working properly. EXTREMITIES: Neurovascularly intact x4. NEUROLOGY: The patient is alert and awake. GCS 15. No focal neurology deficits. LABORATORY DATA: Show point of care glucose is 106. The patient's urine is decreased. ASSESSMENT: 1. Status post exploratory laparotomy with sigmoidectomy and end colostomy. 2. Hyponatremia, treated. 3. Hypoglycemia secondary to poor diet. 4. Colon cancer stage IV. PLAN: Will be continue supportive care. We will increase IV fluids to 120 an hour overnight. Encourage intake by mouth, n.p.o. at midnight. Prepare for MediPort placement tomorrow. Job ID: [id number]
[2020-01-29] MEDS: Acetaminophen 325 MG TAB PO SCH ×4 (00:40→18:58)
[2020-01-29] MEDS: traMADol HCl 50 MG TAB PO SCH ×4 (00:40→18:58)
[2020-01-29] MEDS: Ibuprofen 200 MG TAB PO SCH (06:00)
[2020-01-29] MEDS: Dextrose 5 % And 0.9 % NaCl 1,000 ML IV SCH ×2 (06:01→17:14)
[2020-01-29 07:11] LABS: Anion Gap 13 mmol/L (10-20); BUN (Urea Nitrogen) 23 mg/dL (9.8-20.1); Calc. Creatinine Clearance 37 mL/min (70-130); Calcium 7.8 mg/dL (7.8-10.44); Carbon Dioxide 15 mmol/L (23-31); Chloride 105 mmol/L (98-107); Estimated GFR-MDRD 35; Glucose 106 mg/dL (80-115); Magnesium 2.8 mg/dL (1.6-2.6); Phosphorus 2.6 mg/dL (2.3-4.7); Potassium 3.1 mmol/L (3.5-5.1); Sodium 130 mmol/L (136-145)
[2020-01-29] MEDS: Ferrous Sulfate 325 MG TAB PO SCH ×2 (09:24→17:13)
[2020-01-29] MEDS: Ascorbic Acid 500 mg Chewable Tablet PO SCH ×2 (09:24→17:13)
[2020-01-29] MEDS: Famotidine 20 MG TAB PO SCH (09:48)
[2020-01-29] MEDS: Saccharomyces boulardii 250 MG CAP PO SCH ×2 (09:48→21:14)
[2020-01-29] MEDS: Amoxicillin/Potassium Clav 875 MG TAB PO SCH ×2 (09:48→21:14)
[2020-01-29] MEDS: Ondansetron PF 4 MG/2 ML Vial IVP PRN (09:49)
[2020-01-29] MEDS: Cyclobenzaprine 10 MG TAB PO PRN (10:03)
[2020-01-29] MEDS ORDERED: Morphine 4 MG/ML VIAL SLOW IVP SCH (10:15)
[2020-01-29] MEDS ORDERED: Megestrol Acetate 40 MG TAB PO SCH ×2 (10:30→21:00)
[2020-01-29] MEDS: Sodium Chloride 1 GM TAB PO SCH ×2 (11:00→21:14)
[2020-01-29 12:10] LABS: Band 26 % (5-11); Eosinophils 2 % (0-10); Hypochromia SLIGHT = 6-15 cells (100X) (0-5/hpf); Lymphocytes 8 % (21-51); MDiff Complete? YES; Mean Corpuscular HGB CONC 30.3 g/dL (32.0-36.0); Mean Corpuscular Hemoglobin 25.4 pg (27.0-31.0); Mean Corpuscular Volume 83.9 fL (78.0-98.0); Mean Platelet Volume 10.1 fL (7.4-10.4); Monocytes 6 % (0-10); Neutrophil 58 % (42-75); Platelet Count 87 thou/uL (130-400); Platelet Morphology Comment Appears Decreased; Polychromasia SLIGHT = 2-3 cells (100X) (0-2/hpf); RBC Distribution Width 15.8 % (11.5-14.5); Red Blood Cell (RBC) Count 2.75 mill/uL (4.20-5.40); White Blood Cell (WBC) Count 3.6 thou/uL (4.8-10.8)
--- NOTE | 2020-01-29 14:33 | PRG ---
DATE OF SERVICE: 01/29/2020 SUBJECTIVE: Ms. Almanzar is a 64-year-old woman who is postoperative day #6 status post exploratory laparotomy, sigmoidectomy with end-colostomy and liver biopsy for what is proven to be T4 N1 M1 stage IV moderately-differentiated adenocarcinoma. The patient reports adequate pain control. She reports poor appetite. No nausea or vomiting. OBJECTIVE: VITAL SIGNS: This morning include blood pressure 114/68, pulse 85, respiratory rate is 18, temperature 97.7 degrees Fahrenheit, and oxygen saturation is 100% on room air. HEENT: Pupils equally round and reactive to light and accommodation. HEART: Regular rate and rhythm. No murmurs or gallops auscultated. LUNGS: Clear to auscultation bilaterally. Breathing, regular and nonlabored. ABDOMEN: Soft and nondistended. Midline incision remains intact, although with some seropurulent drainage. [place] were removed. Fascia is intact, but fat is pale with no significant gross purulence noted in the wound bed. The wound itself has a very poor healing 6 days later. Colostomy is viable and functional with formed stool and gas. LABORATORY FINDINGS: CBC with 3600 white blood cells, hemoglobin and hematocrit 7.0 and 23.0 respectively, and platelet count is 87,000. Metabolic profile: Sodium 130, potassium 3.1, chloride is 105, bicarb is 15, BUN is 23, creatinine is 1.77, and glucose is 106. Magnesium is 2.8. Phosphorus is 2.6. Pre-albumin is less than 5.0. IMPRESSIONS: 1. Postoperative day #6 status post sigmoidectomy with end colostomy for obstructing moderately differentiated stage IV adenocarcinoma of the colon. 2. Ipbik-[id number] blood loss anemia. 3. Acute kidney injury. 4. Acute hypokalemia. 5. Acute hypophosphatemia. 6. Severe chronic malnutrition. PLAN: 1. Encourage oral intake. We will start the patient on appetite stimulants. 2. Improve fluid resuscitation and monitor urinary output as well as serum creatinine as endpoint of our resuscitation. 3. Correct abnormal electrolytes. 4. We will avoid all nephrotoxic agents at this juncture. 5. I have strongly encouraged the patient to increase oral intake as she is less likely to improve without nutrition. 6. Wound healing and subsequent tolerance of adjuvant chemotherapy will be impaired. 7. The patient indicates understanding of information provided today and has promised to improve her oral intake. 8. We will transfuse the patient with 1 unit of packed red blood cells. Job ID: [id number]
--- NOTE | 2020-01-29 14:35 | PDOC.PALCO ---
Palliative Care Consult - Consult Details Requesting Physician: Jazmine Ahn PA-C Reason for Consult: symptom management - Pertinent HPI 64 year old female who initially presented to the emergency room with increasing abdominal pain and distention that onset two weeks prior to presentation to emergency room as well as nausea an vomiting for 2 days. Lives with her . History also identified worsening fatigue over 3 weeks with weight loss. Positive for nausea and vomiting 2 days before. History also confirms anorexia. after evaluation in the emergency room Mrs Almanzar was identified to have a large bowel obstruction, secondary to obstructing sigmoid colon neoplasm, liver lesions, with probable chronic pancreatitis. She was taken to surgery for sigmoidectomy and colostomy. Oncology consult, IV metastatic adenocarcinoma of the colon. Port-a-cath to be place and follow up with Dr Grey. Review of records confirm anorexia as well as cachexia. Pain does not appear acute. - Pertinent PMH Denies past medical history, not followed by a primary care physician. - Social History Smoking Status: Current every day smoker Smoking: cigarettes Alcohol Use: daily Living Situation: - Medications MAR Reviewed: Yes - Allergies Allergies/Adverse Reactions: Allergies Allergy/AdvReac Type Severity Reaction Status Date / Time No Known Allergies Allergy Unverified 01/23/20 11:31 - Subjective Lethargic, full lunch tray at bedside. Denies pain currently, but states it occurs when she "gets" up. - ROS Constitutional: weakness ENT: other (denies throat discomfort, congestion) Respiratory: other (denies shortness of breath, cough) Cardiology: other (denies chest pain, palpitations) Gastrointestinal: bloating, intolerance of foods, nausea (intermittant) Skin: other Psychological: other - Objective Vital Signs: Vital Signs - Most Recent Temp Pulse Resp BP Pulse Ox 97.4 F L 86 18 136/61 100 01/29/20 12:15 01/29/20 12:15 01/29/20 12:15 01/29/20 12:15 01/29/20 12:15 Palliative Performance Scale: 50 - Physical Exam Constitutional: cachectic, emaciated, ill appearing HEENT: EOMI, moist MMs Respiratory: no wheezing, unlabored breathing Cardiovascular: RRR Gastrointestinal: positive bowel sounds Deviation from normal: colostomy appears healthy, good output Musculoskeletal: no cyanosis, no clubbing, muscle wasting Neurology: moves all 4 limbs Skin: cap refill <2 seconds, no rash Psychiatric: flat affect - Problem List (1) Palliative care encounter Code(s): Z51.5 - ENCOUNTER FOR PALLIATIVE CARE Current Visit: Yes Status: Acute (2) Metastatic adenocarcinoma Code(s): C79.9 - SECONDARY MALIGNANT NEOPLASM OF UNSPECIFIED SITE Current Visit: Yes Status: Acute (3) Malnutrition Code(s): E46 - UNSPECIFIED PROTEIN-CALORIE MALNUTRITION Current Visit: Yes Status: Acute (4) Physical deconditioning Code(s): R53.81 - OTHER MALAISE Current Visit: Yes Status: Acute - Plan/Recommendations Plan: Increase Megase to work toward a dose of 480-800 QD to improve appetite, therapeutic effect to be seen in two weeks. Consideration may also be given to dexamethasone. Patient was weak, and did require assistance with meal setup. Denies pain with the exception of movement. Appears lethargic, however will follow up tomorrow. Dietary also seeing patient, hopeful that identification of food choices and appetite stimulant can improve intake and impact muscle wasting. Consideration may also be given to antidepressant, however reluctant to initiate in hospital setting secondary to follow up at primary care. Discussed recent diagnosis, therapeutic listening and emotional support. [60] minutes spent on this encounter with >50% of the time in counseling and coordination of care. Thank you for this very appropriate consult.
[2020-01-29] MEDS: Megestrol Acetate 40 MG TAB PO SCH ×2 (17:12→21:17)
[2020-01-29] MEDS: Sodium Chloride 0.9% 1,000 ML IV SCH (21:14)
--- NOTE | 2020-01-30 00:34 | PRG ---
DATE OF SERVICE: 01/29/2020 SUBJECTIVE: Ms. Almanzar was seen on round this evening. The patient reports pain is well controlled. She developed no fever or shortness of breath. The patient's effort of oral intake is getting better. Currently, the patient is having some dinner. Her urine is adequate. OBJECTIVE: GENERAL: Currently, the patient is lying in bed, comfortable, in no acute respiratory distress. VITAL SIGNS: Temperature 97.9, heart rate is 92, respiratory rate 16, O2 saturation 99% on room air, and blood pressure 146/72. LUNGS: Clear bilaterally. HEART: Regular rate and rhythm. ABDOMEN: Soft and nondistended. Midline incision is clean, dry, and intact. Colostomy working with some formed stool. ASSESSMENT: 1. Status post exploratory laparotomy, sigmoidectomy, with end-colostomy. 2. Colon cancer, stage IV. 3. Abnormality in electrolytes due to poor oral intact. PLAN: Continue supportive care. Continue pain control. Continue wound VAC. Encourage oral intact. Continue working with Physical Therapy and Occupational Therapy. Job ID: [id number]
[2020-01-30] MEDS: Acetaminophen 325 MG TAB PO SCH ×5 (00:47→23:34)
[2020-01-30] MEDS: diphenhydrAMINE 50 MG/ML VIAL IVP PRN (00:47)
[2020-01-30] MEDS: traMADol HCl 50 MG TAB PO SCH ×5 (00:47→23:35)
[2020-01-30 04:32] LABS: Anion Gap 11 mmol/L (10-20); BUN (Urea Nitrogen) 18 mg/dL (9.8-20.1); Calc. Creatinine Clearance 50 mL/min (70-130); Calcium 7.6 mg/dL (7.8-10.44); Carbon Dioxide 16 mmol/L (23-31); Chloride 108 mmol/L (98-107); Estimated GFR-MDRD 50; Glucose 94 mg/dL (80-115); Magnesium 2.5 mg/dL (1.6-2.6); Phosphorus 2.3 mg/dL (2.3-4.7); Sodium 132 mmol/L (136-145)
[2020-01-30 04:34] LABS: Potassium 2.7 mmol/L (3.5-5.1)
[2020-01-30] MEDS ORDERED: Sodium Chloride 0.9% 500 ML IV SCH (05:00)
[2020-01-30 05:08] LABS: Band 8 % (5-11); Hypochromia SLIGHT = 6-15 cells (100X) (0-5/hpf); Lymphocytes 7 % (21-51); MDiff Complete? YES; Mean Corpuscular HGB CONC 31.7 g/dL (32.0-36.0); Mean Corpuscular Hemoglobin 26.8 pg (27.0-31.0); Mean Corpuscular Volume 84.6 fL (78.0-98.0); Mean Platelet Volume 9.4 fL (7.4-10.4); Monocytes 26 % (0-10); Neutrophil 59 % (42-75); Platelet Count 75 thou/uL (130-400); Platelet Morphology Comment Appears Decreased; White Blood Cell (WBC) Count 2.5 thou/uL (4.8-10.8)
[2020-01-30] MEDS ORDERED: Potassium Phosphate 30 MMOL in Sodium Chloride 0.9% 500 ML IVPB SCH (06:00)
[2020-01-30 08:02] LABS: Hemoglobin A1c 4.8 % (4.0-6.0)
[2020-01-30] MEDS: Sodium Chloride 0.9% 1,000 ML IV SCH ×3 (09:08→20:45)
[2020-01-30] MEDS: Ferrous Sulfate 325 MG TAB PO SCH ×2 (09:10→17:17)
[2020-01-30] MEDS: Ascorbic Acid 500 mg Chewable Tablet PO SCH ×2 (09:10→17:17)
[2020-01-30] MEDS: Megestrol Acetate 40 MG TAB PO SCH ×3 (09:11→21:27)
[2020-01-30] MEDS: Famotidine 20 MG TAB PO SCH (09:11)
[2020-01-30] MEDS: Saccharomyces boulardii 250 MG CAP PO SCH ×2 (09:11→21:27)
[2020-01-30] MEDS: Amoxicillin/Potassium Clav 875 MG TAB PO SCH ×2 (09:11→21:27)
[2020-01-30] MEDS: Enoxaparin Sodium 40 MG/0.4 ML SYRINGE SC SCH (09:12)
[2020-01-30] MEDS: Sodium Chloride 1 GM TAB PO SCH ×2 (09:12→21:27)
--- NOTE | 2020-01-30 11:59 | PRG ---
DATE OF SERVICE: 01/30/2020 SUBJECTIVE: The patient was seen this morning during rounds. She was lying in bed with no signs of acute distress. Midline abdominal wound with VAC in place, working appropriately. Ostomy is also working. She did receive a 500 mL bolus of normal saline early this morning due to poor urinary output as well as potassium phosphate replacement. At the time of my evaluation, the patient had no complaints; however, her oral intake continues to be poor and she is not very motivated. OBJECTIVE: VITAL SIGNS: Temperature 98.4, pulse 88, respirations 14, oxygen saturation 98% on room air, blood pressure 99/65. GENERAL: Frail, elderly female, lying in bed with no signs of acute distress. PULMONARY: Equal chest rise and fall. No signs of acute respiratory distress. ABDOMEN: Soft, nontender, nondistended. Midline wound with VAC in place and serosanguineous output in canister. Colostomy is well perfused with appropriate output of stool in bag. There is no active bleeding or gross noted. EXTREMITIES: 2+ pulses in all extremities. Gross motor and sensation intact. No significant swelling noted. NEUROLOGIC: GCS is 15. Gross motor and sensation intact. LABORATORY FINDINGS: White count 2.5, hemoglobin 8.0, hematocrit 25.4, platelets 75. Sodium 132, potassium 2.7, chloride 108, bicarb 16, BUN 18, creatinine 1.31, glucose 94, phosphorus 2.3, magnesium 2.5. DIAGNOSTIC FINDINGS: There are no new diagnostic findings to report. ASSESSMENT: Postop day #7, status post sigmoidectomy with end-colostomy for obstructing, moderately differentiated, stage V adenocarcinoma of the colon. The patient with metastasis to the liver. 1. Gmbag-uk-vhyjcrv blood loss anemia, stable. 2. Acute kidney injury, improving. 3. Abdominal wound infection, stable. 4. Acute hypokalemia and hypophosphatemia. 5. History of hypertension. PLAN: Continue current regular diet with Ensure t.i.d. Continue normal saline at 75 an hour. Continue to monitor urinary output. Continue antibiotics and wound VAC. Potassium phosphate replaced this morning. We will repeat blood work this afternoon to follow up on electrolytes and kidney function. The patient was started on Lovenox today for DVT prophylaxis. The patient lives with her and it is apparent that she will have a difficult time taking care of herself and her will not be able to help her as well. We are recommending placement at a prison facility today and have spoken to Case Management about this. We will continue oral intake and physical therapy at this time. Job ID: [id number]
[2020-01-30 16:45] LABS: Anion Gap 13 mmol/L (10-20); BUN (Urea Nitrogen) 15 mg/dL (9.8-20.1); Calc. Creatinine Clearance 61 mL/min (70-130); Calcium 7.6 mg/dL (7.8-10.44); Carbon Dioxide 15 mmol/L (23-31); Chloride 110 mmol/L (98-107); Estimated GFR-MDRD 63; Glucose 81 mg/dL (80-115); Magnesium 2.4 mg/dL (1.6-2.6); Phosphorus 4.1 mg/dL (2.3-4.7); Potassium 3.2 mmol/L (3.5-5.1); Sodium 135 mmol/L (136-145)
[2020-01-30] MEDS ORDERED: Potassium Chloride 20 MEQ TAB PO SCH (17:30)
[2020-01-30] MEDS: Cyclobenzaprine 10 MG TAB PO PRN (21:33)
--- NOTE | 2020-01-30 22:55 | PRG ---
DATE OF SERVICE: 01/30/2020 SUBJECTIVE: The patient remains on the surgical floor. The patient was seen during evening rounds awake, alert, sitting up on the side of the bed, in no acute distress. The patient's midline abdominal wound VAC did become dislodged, nursing staff at bedside to reconnect the system and was working appropriately. The patient's ostomy is also working. The patient continues to have good urinary output. The patient did not eat much of her dinner, but she did drink 1 bottle of Ensure. The patient denies any pain at this time. OBJECTIVE: VITAL SIGNS: Blood pressure 154/72, pulse 86, temperature 98.3, respirations 16, SpO2 of 99% on room air. GENERAL: Frail, elderly female, sitting up on the side of the hospital bed, in no acute distress. PULMONARY: Equal chest rise and fall. Respirations are even and nonlabored. ABDOMEN: Soft, nontender, and nondistended. Midline wound VAC in place. EXTREMITIES: Moves all extremities. No significant swelling noted. NEUROLOGIC: GCS 15. ASSESSMENT: 1. Postoperative day #7 status post sigmoidectomy and end-colostomy for obstructing, moderately differentiated, stage IV adenocarcinoma of the colon and metastasis to the liver. 2. Zrjup-ny-jslceys blood loss anemia, stable. 3. Acute kidney injury, improving. 4. Abdominal wound infection, stable. 5. Acute hypokalemia and hypophosphatemia. 6. History of hypertension. PLAN: Continue current diet and Ensure 3 times a day. Continue maintenance IV fluids. Continue to monitor urinary output. Continue to monitor electrolytes and replace as needed. Continue antibiotics and wound VAC. Plan was discussed with the patient, who agrees. Job ID: [id number] MTDD
[2020-01-31] MEDS: Acetaminophen 325 MG TAB PO SCH ×3 (05:32→17:56)
[2020-01-31] MEDS: traMADol HCl 50 MG TAB PO SCH ×3 (05:33→17:56)
[2020-01-31 06:18] LABS: Eosinophils 6 % (0-10); Hemoglobin 7.7 g/dL (12.0-16.0); Lymphocytes 19 % (21-51); MDiff Complete? YES; Mean Corpuscular HGB CONC 32.1 g/dL (32.0-36.0); Mean Corpuscular Hemoglobin 26.5 pg (27.0-31.0); Mean Corpuscular Volume 82.7 fL (78.0-98.0); Metamyelocyte 1 % (0-0); Monocytes 21 % (0-10); Neutrophil 53 % (42-75); Platelet Count 61 thou/uL (130-400); Platelet Morphology Comment Appears Decreased; RBC Distribution Width 16.4 % (11.5-14.5); Red Blood Cell (RBC) Count 2.92 mill/uL (4.20-5.40)
[2020-01-31 06:29] LABS: Anion Gap 10 mmol/L (10-20); BUN (Urea Nitrogen) 12 mg/dL (9.8-20.1); Calc. Creatinine Clearance 76 mL/min (70-130); Calcium 7.5 mg/dL (7.8-10.44); Carbon Dioxide 17 mmol/L (23-31); Chloride 112 mmol/L (98-107); Estimated GFR-MDRD 81; Glucose 95 mg/dL (80-115); Magnesium 2.2 mg/dL (1.6-2.6); Phosphorus 2.8 mg/dL (2.3-4.7); Potassium 2.8 mmol/L (3.5-5.1); Sodium 136 mmol/L (136-145)
[2020-01-31] MEDS ORDERED: Potassium Phosphate 30 MMOL in Sodium Chloride 0.9% 500 ML IVPB SCH (07:30)
[2020-01-31] MEDS: Saccharomyces boulardii 250 MG CAP PO SCH ×2 (09:18→21:32)
[2020-01-31] MEDS: Famotidine 20 MG TAB PO SCH (09:19)
[2020-01-31] MEDS: Ascorbic Acid 500 mg Chewable Tablet PO SCH ×2 (09:19→17:56)
[2020-01-31] MEDS: Amoxicillin/Potassium Clav 875 MG TAB PO SCH (09:19)
[2020-01-31] MEDS: Sodium Chloride 1 GM TAB PO SCH ×2 (09:19→21:32)
[2020-01-31] MEDS: Lisinopril 10 MG TAB PO SCH (09:19)
[2020-01-31] MEDS: Ferrous Sulfate 325 MG TAB PO SCH ×2 (09:19→17:56)
[2020-01-31] MEDS: Enoxaparin Sodium 40 MG/0.4 ML SYRINGE SC SCH (09:20)
[2020-01-31] MEDS: Megestrol Acetate 40 MG TAB PO SCH ×3 (09:20→21:32)
--- NOTE | 2020-01-31 10:26 | PRG ---
DATE OF SERVICE: 01/31/2020 SUBJECTIVE: Ms. Almanzar is a 64-year-old woman, chronically malnourished, who is postop day #8, status post exploratory laparotomy, sigmoidectomy with end-colostomy for obstructing moderately-differentiated metastatic adenocarcinoma of the sigmoid colon. She is awake and alert this morning. Reports adequate pain control. She remains quite anorexic. OBJECTIVE: VITAL SIGNS: Include blood pressure 151/74, pulse 86, respiratory rate is 14, temperature 98.4 degrees Fahrenheit, and oxygen saturation 99% on room air. ABDOMEN: Soft and nondistended. Wound VAC was removed. The fascia is partially necrotic. Subcutaneous tissues appear healthier today with no gross purulence present. There is a cloudy serous ascites egressing from the wound. Colostomy is viable and productive of stool and gas. NEUROLOGIC: Reveals no focal deficits present. LABORATORY FINDINGS: Laboratory findings include a CBC with 3000 white blood cells, hemoglobin and hematocrit of 7.7 and 24.1 respectively. Platelet count is 61,000. Differential counts as follows; 53 neutrophils, 19 lymphocytes, 21 monocytes, 6 eosinophils. Metabolic profile; sodium 136, potassium 2.8, chloride is 112, bicarb is 17, BUN 12, creatinine 0.86, glucose is 95, magnesium 2.2, and phosphorus 2.8. IMPRESSIONS: 1. Postop day #8, status post exploratory laparotomy with sigmoidectomy and end-colostomy. 2. Stage IV moderately-differentiated adenocarcinoma of the sigmoid colon with liver metastasis. 3. Acute hypokalemia. 4. Acute hypophosphatemia. 5. Severe chronic malnutrition. PLAN: 1. Correct abnormal electrolytes. 2. We will change antibiotic therapy to meropenem. 3. Wound VAC dressing to continue. 4. The patient is encouraged to increase oral intake as this is the only chance for this wound to heal and especially given her chronic malnutrition state. Job ID: [id number]
[2020-01-31] MEDS ORDERED: Morphine 4 MG/ML VIAL SLOW IVP SCH (10:45)
[2020-01-31] MEDS: MEROPENEM 1 GM/50 ML 1 GM in Premix Bag 1 BAG IVPB SCH ×2 (11:39→17:56)
[2020-01-31] MEDS: Sodium Chloride 0.9% 1,000 ML IV SCH (11:48)
--- NOTE | 2020-01-31 12:31 | PDOC.PALPN ---
Palliative Progress Note - Subjective Lethargic, pronounced weakness. Remains with no appetite, anorexic. - Objective Vital Signs: Vital Signs - Most Recent Temp Pulse Resp BP Pulse Ox 98.1 F 85 16 157/75 H 100 01/31/20 10:54 01/31/20 10:54 01/31/20 10:54 01/31/20 10:54 01/31/20 10:54 - Physical Exam Constitutional: ill appearing HEENT: EOMI, moist MMs, sclera anicteric Respiratory: unlabored breathing, diminished lung sound Cardiovascular: RRR Deviation from normal: Colostomy Genitourinary: continent Musculoskeletal: no cyanosis, no clubbing, diffuse muscle atrophy Neurology: moves all 4 limbs Skin: cap refill <2 seconds, fragile Psychiatric: flat affect - Assessment (1) Palliative care encounter Code(s): Z51.5 - ENCOUNTER FOR PALLIATIVE CARE Current Visit: Yes Status: Acute (2) Metastatic adenocarcinoma Code(s): C79.9 - SECONDARY MALIGNANT NEOPLASM OF UNSPECIFIED SITE Current Visit: Yes Status: Acute (3) Malnutrition Code(s): E46 - UNSPECIFIED PROTEIN-CALORIE MALNUTRITION Current Visit: Yes Status: Acute (4) Physical deconditioning Code(s): R53.81 - OTHER MALAISE Current Visit: Yes Status: Acute - Plan Plan: Continue with favorite foods, appetite stimulant. Discussed with Mich DIMAS and discussed complex morbidities of Ms Almanzar. Limited chance for meaningful recovery secondary to colon cancer with metastasis to liver, anorexia lending to malnutrition impacting patient change to optimally heal at surgical site. Called and discussed with patient . He is not interested in Hospice, and wishes for care at skilled facility. States he just "lost his mother and can not handle loosing someone else." Emotional support offered, as well as education in relation to disease processes and potential for poor meaningful recovery. Communicated with DREA Kearns and Mich DIMAS [45] minutes spent on this encounter with >50% of the time in counseling and coordination of care. - ROS Constitutional: loss appetite, weakness ENT: alteration in dentition Respiratory: other (denies cough) Cardiology: other Gastrointestinal: bloating
--- NOTE | 2020-01-31 16:05 | PDOC.PALFU ---
Palliative Care Follow-up Note Follow up call with patient sister Abbie Roberts [phone] She states she knows her sister would prefer to return to the home setting with hospice. She relayed that the family is attempting to work together to find one of their homes that Mrs Almanzar and her could go to and receive hospice care. Awaiting family update, notified DREA Kearns and Mich Leon.
[2020-01-31 16:59] LABS: Anion Gap 13 mmol/L (10-20); BUN (Urea Nitrogen) 9 mg/dL (9.8-20.1); Calc. Creatinine Clearance 86 mL/min (70-130); Calcium 7.4 mg/dL (7.8-10.44); Carbon Dioxide 15 mmol/L (23-31); Chloride 113 mmol/L (98-107); Estimated GFR-MDRD Greater than 90; Glucose 136 mg/dL (80-115); Magnesium 2.2 mg/dL (1.6-2.6); Phosphorus 4.1 mg/dL (2.3-4.7); Potassium 3.1 mmol/L (3.5-5.1); Sodium 138 mmol/L (136-145)
[2020-01-31] MEDS ORDERED: Potassium Chloride 40 MEQ in Premix Bag 1 BAG IVPB SCH (19:00)
[2020-01-31] MEDS ORDERED: Sodium Chloride 0.9% 1,000 ML IV SCH (22:01)
[2020-01-31] MEDS ORDERED: Lactated Ringer's 1,000 ML IV SCH (22:15)
--- NOTE | 2020-01-31 22:37 | PRG ---
DATE OF SERVICE: 01/31/2020 SUBJECTIVE: This is a 64-year-old lady, postop day #8 status post exploratory laparotomy with sigmoidectomy with end-colostomy for obstructing moderately differentiated metastatic adenocarcinoma of the sigmoid colon. The patient is currently awake, alert, just sitting up in bed. The patient's pain is well controlled at this time. The patient's wound VAC is in place and working appropriately. The patient has very minimal appetite, but has taken in fluids. The patient continues to have good urinary output. The patient's ostomy is working appropriately. OBJECTIVE: VITAL SIGNS: Blood pressure 162/77, temperature 98.2, pulse 80, respirations 18, and SpO2 100% on room air. GENERAL: Ill-appearing, middle-aged female, awake and alert. RESPIRATORY: The patient taking deep breaths, mildly tachypneic, bilateral breath sounds diminished with coarse rales in the bases. CARDIAC: Regular rate, regular rhythm. ABDOMEN: Wound VAC in place. Colostomy is viable with stool and gas present. EXTREMITIES: Moves all extremities. No pedal edema. IMPRESSION: 1. Postop day #8 status post exploratory laparotomy with sigmoidectomy and end-colostomy. 2. Stage IV moderately differentiated adenocarcinoma of the sigmoid colon with liver metastasis. 3. Hypokalemia. 4. Hypophosphatemia. 5. Severe chronic malnutrition. PLAN: 1. Encourage p.o. intake. 2. Aggressive pulmonary toilet. 3. Continue wound VAC to abdomen. 4. We will obtain a chest x-ray in the morning and BNP, due to net fluid positive and coarse rales in bases. 5. Continue IV antibiotics. 6. Decrease IVF rate and change IVF to LR. Job ID: [id number] [facility]
[2020-02-01] MEDS: traMADol HCl 50 MG TAB PO SCH ×4 (00:04→18:37)
[2020-02-01] MEDS: Acetaminophen 325 MG TAB PO SCH ×4 (00:04→18:36)
[2020-02-01] MEDS: MEROPENEM 1 GM/50 ML 1 GM in Premix Bag 1 BAG IVPB SCH ×2 (02:51→09:09)
[2020-02-01 06:35] LABS: Band 12 % (5-11); Eosinophils 6 % (0-10); Hemoglobin 7.7 g/dL (12.0-16.0); Hypochromia SLIGHT = 6-15 cells (100X) (0-5/hpf); Lymphocytes 22 % (21-51); MDiff Complete? YES; Mean Corpuscular HGB CONC 32.1 g/dL (32.0-36.0); Mean Corpuscular Hemoglobin 26.4 pg (27.0-31.0); Mean Corpuscular Volume 82.3 fL (78.0-98.0); Mean Platelet Volume 11.5 fL (7.4-10.4); Metamyelocyte 6 % (0-0); Monocytes 14 % (0-10); Neutrophil 40 % (42-75); Nucleated RBC 1 % (0); Platelet Count 57 thou/uL (130-400); Platelet Morphology Comment Appears Decreased; RBC Distribution Width 16.6 % (11.5-14.5); Red Blood Cell (RBC) Count 2.93 mill/uL (4.20-5.40); White Blood Cell (WBC) Count 3.5 thou/uL (4.8-10.8)
[2020-02-01 06:51] LABS: Anion Gap 11 mmol/L (10-20); BUN (Urea Nitrogen) 8 mg/dL (9.8-20.1); Calc. Creatinine Clearance 96 mL/min (70-130); Calcium 7.6 mg/dL (7.8-10.44); Carbon Dioxide 17 mmol/L (23-31); Chloride 112 mmol/L (98-107); Estimated GFR-MDRD Greater than 90; Glucose 115 mg/dL (80-115); Phosphorus 2.4 mg/dL (2.3-4.7); Potassium 3.4 mmol/L (3.5-5.1); Sodium 137 mmol/L (136-145)
--- NOTE | 2020-02-01 08:17 | RAD ---
CHEST 1 VIEW PORTABLE: HISTORY: Decreased bowel sounds. COMPARISON: 01/24/2020. FINDINGS: Heart size is within upper range of normal limits. There is blunting to both costophrenic angles, ev idence for small pleural effusions. Left central line and injection port. Previously noted NG tube has been removed. No new confluent pneumonia or overt edema. IMPRESSION: Bilateral pleural effusions, probably slightly worse than on the prior study. No new confluent pneum onia or other acute process. Continue short-term followup. POS: RRE
[2020-02-01] MEDS ORDERED: Potassium Phosphate 30 MMOL in Sodium Chloride 0.9% 250 ML 250 ML IVPB SCH (08:30)
[2020-02-01] MEDS: Enoxaparin Sodium 40 MG/0.4 ML SYRINGE SC SCH (09:07)
[2020-02-01] MEDS: Famotidine 20 MG TAB PO SCH (09:07)
[2020-02-01] MEDS: Ascorbic Acid 500 mg Chewable Tablet PO SCH (09:07)
[2020-02-01] MEDS: Megestrol Acetate 40 MG TAB PO SCH (09:07)
[2020-02-01] MEDS: Ferrous Sulfate 325 MG TAB PO SCH (09:08)
[2020-02-01] MEDS: Saccharomyces boulardii 250 MG CAP PO SCH (09:08)
[2020-02-01] MEDS: Lisinopril 10 MG TAB PO SCH (09:08)
[2020-02-01] MEDS: traMADol HCl 50 MG TAB PO PRN ×2 (10:03→21:51)
--- NOTE | 2020-02-01 10:34 | PRG ---
DATE OF SERVICE: 02/01/2020 SUBJECTIVE: The patient was seen this morning during rounds. She was lying in bed with no signs of acute distress. She had no acute events overnight. The patient's abdomen is distended and colostomy is functioning. However, there has been no recent gas in the bag. Also, the patient continues to have murky appearing fluid coming from her midline abdominal wound VAC. She is doing poor on her oral intake. OBJECTIVE: VITAL SIGNS: Temperature 98, pulse , respirations 18, oxygen saturation 100% on room air, blood pressure 157/71. GENERAL: Ill-appearing elderly female, lying in bed with no signs of acute distress. PULMONARY: Equal chest rise and fall. Slightly diminished at bases. No signs of acute respiratory distress. CARDIAC: Regular rate and rhythm. GI: Abdomen is soft, moderately distended and appropriately tender. Wound VAC is in place and working appropriately. NEUROLOGIC: GCS is 15. ASSESSMENT: 1. Postop day 8 status post exploratory laparotomy with sigmoidectomy and end colostomy. 2. Stage IV moderately differentiated adenocarcinoma of the sigmoid colon with liver metastasis. 3. Acute hypokalemia and hypophosphatemia. 4. Severe chronic malnutrition. PLAN: Correct electrolytes. Continue to encourage eating. The patient to receive a CT of the abdomen and pelvis with p.o. and IV contrast. We would like to re-evaluate the anastomosis. Plan is to have a family meeting hopefully today with palliative care and her family to discuss goals of care and possibly comfort measures. This patient was seen and evaluated by Dr. Sarah and myself this morning during rounds. Job ID: [id number] MTDD
[2020-02-01] MEDS: Morphine 4 MG/ML VIAL SLOW IVP PRN ×3 (12:53→21:56)
--- NOTE | 2020-02-01 17:27 | PDOC.PALPN ---
Palliative Progress Note - Subjective Mrs Almanzar was assessed prior to family meeting. She remains with poor intake, lack of desire to eat. Arousable but lethargic. - Objective Vital Signs: Vital Signs - Most Recent Temp Pulse Resp BP Pulse Ox 98.2 F 87 16 150/76 H 99 02/01/20 15:00 02/01/20 15:00 02/01/20 15:00 02/01/20 15:00 02/01/20 15:00 - Physical Exam Constitutional: cachectic, ill appearing HEENT: EOMI, moist MMs Respiratory: unlabored breathing, diminished lung sound Cardiovascular: RRR Deviation from normal: Colostomy, mild abdominal tenderness Musculoskeletal: diffuse muscle atrophy Neurology: moves all 4 limbs, no focal deficits Skin: cap refill <2 seconds, fragile Deviation from normal: Abdominal wound - Assessment (1) Palliative care encounter Code(s): Z51.5 - ENCOUNTER FOR PALLIATIVE CARE Status: Acute (2) Metastatic adenocarcinoma Code(s): C79.9 - SECONDARY MALIGNANT NEOPLASM OF UNSPECIFIED SITE Status: Acute (3) Malnutrition Code(s): E46 - UNSPECIFIED PROTEIN-CALORIE MALNUTRITION Status: Acute (4) Physical deconditioning Code(s): R53.81 - OTHER MALAISE Status: Acute - Plan Plan: Family meeting via conference with patient sister Abbie and Mr Almanzar patient . Dr Sarah reviewed patient recent history and current status, explaining stage IV colon cancer with liver metastasis. Discussed poor meaningful recovery related to terminal diagnosis. Family understanding and has elected to transition home with Hospice. CM was notified, no preference of family. Will let CM locate a hospice that will accept patient as she is unfunded. Family to get the home ready for the patient to return to the home setting with Hospice. Palliative Care will sign off, please reconsult if any further assistance is needed. [40] minutes spent on this encounter with >50% of the time in counseling and coordination of care. - ROS Constitutional: loss appetite, weakness, weight changes ENT: other (Negative for sore throat, congestion) Respiratory: shortness of breath with extertion, other (Denies cough) Cardiology: other (Denies chest pain, palpitations) Musculoskeletal: arthritis/arthralgias Neurological: other (Negative for change in speech, headache) Skin: wounds Psychological: depression
--- NOTE | 2020-02-01 23:45 | PRG ---
DATE OF SERVICE: 02/01/2020 SUBJECTIVE: The patient was seen this evening during rounds, awake, alert, sitting up on the side of the bed. The patient continues to have very minimal appetite and only drinking fluids. The patient did not eat any of her dinner. The patient's midline abdominal dressing is saturated with murky fluid. Ostomy site appears clean and not draining. Saturated abdominal dressing was removed. Wound was cleaned, and wet-to-dry packing and dressing were reapplied. OBJECTIVE: VITAL SIGNS: Blood pressure 169/87, temperature 97.9, pulse 87, respirations 16, SpO2 of 90% on room air. GENERAL: Ill-appearing elderly female, sitting up on the side of the bed. PULMONARY: Equal chest rise and fall. No distress. CARDIAC: Regular rate and regular rhythm. GI: Abdomen is soft. Moderately distended. Foul-smelling wound with murky-appearing fluid. Wet-to-dry dressing was replaced. NEUROLOGIC: GCS 15. ASSESSMENT: 1. Postoperative day #8 status post exploratory laparotomy with sigmoidectomy and end-colostomy. 2. Stage IV moderately-differentiated adenocarcinoma of the sigmoid colon with liver metastasis. 3. Acute hypokalemia and hypophosphatemia. 4. Severe chronic malnutrition. PLAN: Continue supportive care. Continue to encourage oral intake. Comfort measures. Ensure that the patient's ostomy site is not leaking into the wound. Continue wound dressings. The patient will most likely go home with hospice tomorrow. Job ID: [id number]
[2020-02-02] MEDS: traMADol HCl 50 MG TAB PO SCH ×4 (00:11→18:12)
[2020-02-02] MEDS: Acetaminophen 325 MG TAB PO SCH ×4 (00:11→18:11)
[2020-02-02] MEDS: Morphine 4 MG/ML VIAL SLOW IVP PRN ×2 (09:18→19:35)
--- NOTE | 2020-02-02 11:56 | PRG ---
DATE OF SERVICE: 02/02/2020 SUBJECTIVE: Ms. Almanzar is a 64-year-old woman, recently diagnosed metastatic obstructing sigmoid colon cancer with liver metastasis. The patient is postop day #10 status post exploratory laparotomy, sigmoidectomy with end colostomy, segmental small bowel resection with primary anastomosis and wedge liver biopsy, all proven to be stage IV moderately differentiated adenocarcinoma of the colon. The patient is severely malnourished with a pre-albumin less than 5. She has been quite anorexic despite being on Megace. Her incisional wound is poorly healing. The wound VAC was removed yesterday and wet-to-dry dressings applied. OBJECTIVE: VITAL SIGNS: Include blood pressure 153/69, pulse is 85, respiratory rate is 16, temperature is 98.1 degrees Fahrenheit, oxygen saturation is 96% on room air. HEART: Reveals regular rate and rhythm. LUNGS: Clear to auscultation bilaterally. ABDOMEN: Soft and nondistended. She has moderate tenderness to palpation with no gross rebound tenderness present. The fascia remains intact. The fat is poorly vascularized. There is cloudy serous drainage from the wound. No fat necrosis present. Colostomy remains viable and functional with formed stool. IMPRESSIONS: 1. Postoperative day #10 status post exploratory laparotomy, sigmoidectomy with end colostomy. 2. Stage IV moderately differentiated adenocarcinoma of the sigmoid colon with liver metastasis. 3. Failure to thrive. I discussed with the patient regarding cancer diagnosis and her failure to thrive with chronic malnutrition and anorexia. She is unwilling to have a nasogastric tube for nutritional supplementation. We also had a family conference, present was the Case Management, Acute Care Surgical Service as well as the patient's family on speaker telephone. It is the agreement of the patient and her family to proceed with hospice care at this time. Arrangement has been made to discharge the patient to home hospice once all equipments are available at home. This will hopefully occur within the next 24 hours. The patient has thanked all service members for the care given to her during this hospitalization and surgery. Job ID: [id number]
[2020-02-02] MEDS: traMADol HCl 50 MG TAB PO PRN (22:12)
--- NOTE | 2020-02-03 00:15 | PRG ---
DATE OF SERVICE: 02/02/2020 SUBJECTIVE: The patient was seen during evening rounds, awake, alert, sitting up in hospital bed. The patient is postop day #10 status post exploratory laparotomy, sigmoidectomy with end colostomy. The patient's pain is controlled at this time. The patient did not have much of an appetite, but is tolerating Ensure. The patient's midline abdominal dressing has cloudy serous drainage. The patient's colostomy remains viable and functioning with formed stool. OBJECTIVE: VITAL SIGNS: Stable and the patient remains afebrile. IMPRESSION: 1. Postop day #10 status post exploratory laparotomy, sigmoidectomy with end colostomy. 2. Stage IV moderately-differentiated adenocarcinoma of sigmoid colon with liver metastasis. 3. Failure to thrive. PLAN: Supportive and comfort care. Encourage oral intake. The patient will most likely be discharged home with hospice tomorrow. Job ID: [id number]
[2020-02-03] MEDS: Acetaminophen 325 MG TAB PO SCH ×5 (00:19→23:18)
[2020-02-03] MEDS: traMADol HCl 50 MG TAB PO SCH ×5 (00:19→23:18)
[2020-02-03] MEDS: Morphine 4 MG/ML VIAL SLOW IVP PRN ×3 (01:40→19:06)
[2020-02-03] MEDS ORDERED: Iopamidol 370 76% 100 ML VIAL ONE (10:10)
[2020-02-03] MEDS: Cyclobenzaprine 10 MG TAB PO PRN (10:27)
[2020-02-03] MEDS: traMADol HCl 50 MG TAB PO PRN ×2 (10:28→16:12)
--- NOTE | 2020-02-03 13:35 | CT ---
CT OF THE ABDOMEN AND PELVIS WITH IV CONTRAST INDICATION: 64-year-old female with history of colon cancer, left lower quadrant abdominal pain and r ecent postoperative state COMPARISON: CT of the abdomen and pelvis with contrast dated January 23, 2020. CT of the thorax dated A pri2019. FINDINGS: ABDOMEN: Lung bases: There are enlarging bilateral pleural effusions, moderate on the left and small right wit h bibasilar atelectasis Liver: There are numerous hypodense lesions involving the liver suspicious for metastatic disease Gallbladder: Surgically absent Pancreas: Scattered pancreatic parenchymal calcifications and dilated pancreatic duct is suspicious f or changes of prior pancreatitis is similar appearing. Prominent calcification seen near the region of the ampulla of Vater is suspicious for a distal common bile duct stone. This appears similar to th e prior exam and measures 8.5 mm Adrenal glands: Normal. Spleen: Normal. Kidneys and ureters: There is a striated nephrogram appearance of both kidneys which is nonspecific a nd may be related to phase of enhancement. Pyelonephritis cannot be entirely excluded. Vasculature: There are severe vascular calcifications seen involving the visualized vasculature. Lymph nodes:No lymphadenopathy. Free fluid in abdomen:The extent of the free fluid and free air seen within the upper abdomen on the comparison CT dated 01/26/2020 has diminished. Small locules of free air and free fluid remain underlying the hemidiaphragms. PELVIS: Small and large bowel: There is postsurgical change of a partial colectomy and a long Saba's pouch . There is a left lower quadrant colostomy. The distal aspect of the colostomy is decompressed with some associated wall thickening. No drainable fluid collection is evident within the abdominal wall. There is an open midline abdominal wall incision. There is some dilatation of loops of small bowel diffusely without a transitional zone suspicious for diffuse ileus. There is posterior procedural joleen nge of a partial small bowel resection with anastomosis within the lower central midline abdomen. Appendix:Normal Bladder: Normal. Rectal and perirectal soft tissues:Normal. Reproductive structures: Normal. Free fluid in pelvis: There is free fluid seen within the lower paracolonic gutter as it extends down into the lower pelvis. Lymphadenopathy pelvis: No lymphadenopathy is evident. Osseous structures: No acute osseous abnormality. No destructive osteolytic or osteoblastic lesion i s identified. There is scattered degenerative and osteoarthritic changes. Small sclerotic lesion within the right aspect of T11 is similar appearing. Soft tissues:There is diffuse anasarca IMPRESSION: 1. Postoperative change of an interval partial colectomy with establishment of the left lower quadran t end colostomy. There is a long Saba's pouch. The distal transverse colon and proximal descending colon extending to the ostomy site appears to have some mildly thickened king which may r eflect a component of a mild colitis. This can be seen with ischemia or infectious entities. There is a moderate amount retained stool within the upstream colon. There is diffuse dilatation small vicky l suspicious for ileus. The extent of the fluid and gas collections seen within the upper abdomen have improved from the comparison CT the thorax dated 01/26/2020. Mild amount of residual fluid and ga s remain within the upper abdomen. There is scattered free fluid within these of the mesentery as well as within the lower paracolonic gutters and pelvis. There is an open midline abdominal wall inci micheal. No abdominal wall hematoma is evident. There is diffuse anasarca. 2. Stable hepatic metastatic disease. 3. Striated nephrogram appearance of both kidneys is nonspecific and may reflect phase of contrast en hancement; however, this is a late portal venous phase. Findings can be seen with segmental infarcts of the kidneys but also pyelonephritis. Recommend correlation with patient's urinalysis. 4. Enlarging bilateral pleural effusions with bibasilar atelectasis 5. 8.5 mm stone in the region of the distal common bile duct is suspicious for choledocholithiasis. F indings of prior chronic pancreatitis. 6. Findings discussed with Dr. Sarah at 1:30 PM on February 03, 2020
[2020-02-03] MEDS ORDERED: Furosemide 40 MG/4 ML VIAL SLOW IVP SCH (13:45)
[2020-02-03] MEDS ORDERED: Cipro 250 MG TAB PO SCH ×2 (13:45→20:00)
[2020-02-03] MEDS ORDERED: Ciprofloxacin 500 MG TAB PO SCH (14:00)
[2020-02-03] MEDS: metroNIDAZOLE 500 MG TAB PO SCH ×2 (14:08→20:24)
[2020-02-03 14:14] LABS: Anion Gap 13 mmol/L (10-20); BUN (Urea Nitrogen) 6 mg/dL (9.8-20.1); Calc. Creatinine Clearance 93 mL/min (70-130); Calcium 7.6 mg/dL (7.8-10.44); Carbon Dioxide 19 mmol/L (23-31); Chloride 105 mmol/L (98-107); Estimated GFR-MDRD Greater than 90; Glucose 79 mg/dL (80-115); Phosphorus 3.2 mg/dL (2.3-4.7); Potassium 4.1 mmol/L (3.5-5.1); Sodium 133 mmol/L (136-145)
[2020-02-03 14:15] LABS: Anisocytosis SLIGHT = 6-15 cells (100X) (0-5/hpf); Band 48 % (5-11); Hemoglobin 8.2 g/dL (12.0-16.0); Hypochromia SLIGHT = 6-15 cells (100X) (0-5/hpf); Lymphocytes 5 % (21-51); MDiff Complete? YES; Mean Corpuscular Hemoglobin 27.8 pg (27.0-31.0); Mean Corpuscular Volume 81.7 fL (78.0-98.0); Mean Platelet Volume 9.6 fL (7.4-10.4); Monocytes 19 % (0-10); Neutrophil 26 % (42-75); Platelet Count 154 thou/uL (130-400); Platelet Morphology Comment Appears Adequate; Polychromasia SLIGHT = 2-3 cells (100X) (0-2/hpf); RBC Distribution Width 17.2 % (11.5-14.5); Reactive Lymphocytes 1 % (0-10); Red Blood Cell (RBC) Count 2.96 mill/uL (4.20-5.40); Schistocytes SLIGHT = 2-5 cells (100X) (0-1/hpf); Target Cells SLIGHT = 2-5 cells (100X) (0-1/hpf); White Blood Cell (WBC) Count 10.4 thou/uL (4.8-10.8)
[2020-02-03] MEDS ORDERED: Piperacillin/Tazobactam 3.375 GM in Sodium Chloride 0.9% 100 ML IVPB SCH (15:00)
[2020-02-03] MEDS: Ondansetron PF 4 MG/2 ML Vial IVP PRN (16:12)
--- NOTE | 2020-02-03 16:24 | PRG ---
Job ID: [id number] [facility] HOSPITALCecile
--- NOTE | 2020-02-03 16:45 | PRG ---
DATE OF SERVICE: 02/03/2020 SUBJECTIVE: The patient was seen this morning on rounds with Dr. Sarah. The patient reported some abdominal pain, but generally stated she was doing well. There was a hard area on her left lateral abdomen, which was concerning for an abdominal wall abscess. This caused us to CT the abdomen and pelvis with oral and IV contrast today. OBJECTIVE: VITAL SIGNS: Temperature 98.5, pulse 92, respirations 16, oxygen saturation 98% on room air, blood pressure 146/81. GENERAL: Ill-appearing middle-aged female, lying in bed with no signs of acute distress. PULMONARY: Equal chest rise and fall. Clear breath sounds bilaterally, but slightly diminished at bases. No signs of acute respiratory distress. CARDIAC: Regular rate and rhythm. No murmurs, gallops, or rubs. GI: Abdomen is soft, moderately tender to palpation, mildly distended. There is a hard area on the left lower quadrant that is also tender palpation. EXTREMITIES: 2+ pulses in all extremities. Gross motor and sensation are intact. No significant swelling noted. NEUROLOGICAL: GCS is 15. LABORATORY FINDINGS: White count 10.4, hemoglobin 8.9, hematocrit 29.2, platelets 154. Sodium 133, potassium 4.1, chloride 105, bicarb 19, BUN 6, creatinine 0.7, glucose 79. Phosphorus 3.9, magnesium 2. BNP 174. DIAGNOSTIC FINDINGS: CT scan of the abdomen and pelvis with IV and p.o. contrast demonstrates postoperative changes of an interval partial colectomy with establishment of the left lower quadrant end colostomy. There is a long Homa pouch in the distal transverse colon and proximal descending colon. The colon extends to the ostomy site, it appears to have some mildly thickened king, which may reflect a component of mild colitis. This can be seen with ischemia or infectious . There is a moderate amount of retained stool within QAMARKER] colon. There is diffuse dilation of small bowel, suspicious of ileus. The extent of the fluid and gas collection seen within the upper abdomen has improved with the comparison CT of the thorax, dated 01/26/2020. Mild amount of residual fluid and gas remains within the upper abdomen. There is scattered free fluid of the mesentery as well as within the lower pericolic gutter and pelvis. There is an open midline abdominal wall incision. No abdominal wall hematoma is evident. There is diffuse anasarca. Stable hepatic metastatic disease. Striated nephrogram of both kidneys is nonspecific and may reflect phase of contrast enhanced. However, this is late portal venous phase, findings can be seen with segmental infarcts of the kidney, but also pyelonephritis, recommend correlation with the patient's urinalysis and large dilated pleural effusions with bilateral atelectasis, 8.5 mm stone in the region of the distal common bile duct suspicious for choledocholithiasis, findings of prior pancreatitis. 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 PLAN: Continue current diet and pain regimen. The patient is to receive 10 days of Cipro and Flagyl for colitis. There is a concern that the colitis is not too much infectious, but ischemic. She is receiving 40 mg of IV Lasix x1. It appears the small bowel anastomosis is intact, and the fluid coming from her midline wound is associated with ascites. We will follow up urinary output 1 hour from the first Lasix dose. We will keep the patient for another night and discharge to hospice likely tomorrow. This patient was seen and evaluated by Dr. Sarah and myself today during rounds. Job ID: [id number]
--- NOTE | 2020-02-03 17:10 | PRG ---
DATE OF SERVICE: 02/03/2020 SUBJECTIVE: Ms. Almanzar is a 64-year-old woman, who is postoperative day #11 status post exploratory laparotomy, sigmoidectomy with end colostomy, segmental small bowel resection, primary anastomosis, and wedge liver biopsy. She is diagnosed with stage 4 metastatic adenocarcinoma of the colon. The patient is chronically severely malnourished. The wound has failed to heal with a prealbumin, which is less than 5. The patient continues to be anorexic. Her pain control is adequate. She has been evaluated by Palliative Care and at his discussion, is willing to enter into hospice. OBJECTIVE: VITAL SIGNS: Currently includes blood pressure is 139/74, pulse is 100, respiratory rate is 16, degrees Fahrenheit. HEART: Reveals regular rate and rhythm. No murmurs or gallops auscultated. LUNGS: Clear to auscultation bilaterally. Breathing, regular and unlabored. ABDOMEN: Soft, moderately distended and moderately tender to palpation with no gross rebound tenderness present. Colostomy is viable with some minor necrotic edges. There is no stool or gas output at this time. Fascia remains intact with minor necrotic tissue. No gross purulence present. The subcutaneous fat appears more viable than the last 2 to 3 days. There is some serous fluid egressing from the midline incision through the fascia. NEUROLOGIC: Reveals no focal deficits present. LABORATORY FINDINGS: Today includes a CBC with 10,400 white blood cells and hemoglobin and hematocrit 8.2 and 24.2 respectively. Platelet count is 154,000. Metabolic profile; sodium is 133, potassium is 4.1, chloride is 105, bicarb is 19, BUN is 6, creatinine is 0.70, glucose is 79, magnesium is 2.0, and phosphorus is 3.2. BNP is 174.7. I have evaluated CT scan of the abdomen and pelvis, which was obtained today, which reveals moderate volume of intraperitoneal fluid with no pneumoperitoneum or loculated fluid collection to suggest abscess. The small bowel anastomosis remains intact. There is thickening of the distal colonic wall down to the colostomy. There is no evidence of subcutaneous abscess formation. There is extensive amount of soft tissue anasarca. IMPRESSION: 1. Stage 4 metastatic moderately differentiated adenocarcinoma of the colon with liver metastasis. 2. Severe chronic malnutrition. 3. Anasarca with abdominal ascites consistent with acute hyperkalemia. 4. Chronic anemia. 5. Acute hyponatremia. PLAN: 1. The patient will be placed on diuretics. 2. We will continue with antibiotic therapy with adequate local wound care to the midline incision. 3. We will encourage the patient to continue to increase her oral intake and provide adequate nutrition. 4. We will discharge the patient to home hospice tomorrow once all equipments and home arrangement is in place. Above findings and plan discussed with the patient, who indicates understanding of information given. I have answered her questions. Job ID: [id number]
[2020-02-03] MEDS: Ciprofloxacin 500 MG TAB PO SCH (19:06)
[2020-02-03] MEDS: Ondansetron ODT 4 MG TAB PO PRN (20:27)
--- NOTE | 2020-02-04 03:51 | PRG ---
DATE OF SERVICE: 02/03/2020 SUBJECTIVE: The patient was seen during evening rounds, resting comfortably in bed, in no acute distress. The patient arouses easily and voices no complaints or concerns at this time. The patient's pain is tolerable. The patient states that she does not want to take the p.o. Tylenol. OBJECTIVE: VITAL SIGNS: Stable, afebrile. GENERAL: Ill-appearing middle-aged female, in no acute distress. ABDOMEN: Midline abdominal wound dressing is clean, dry, and intact. IMPRESSION: 1. Stage IV metastatic moderately differentiated adenocarcinoma of the colon with liver metastasis. 2. Severe chronic malnutrition. 3. Anasarca with abdominal ascites consistent with acute hyperkalemia, chronic anemia, and acute hyponatremia. PLAN: Supportive care, pain regimen. Continue wet-to-dry wound dressing changes as needed. Encourage nutrition. Most likely, the patient will be discharged home with hospice care tomorrow. Continue oral antibiotics. Job ID: [id number]
[2020-02-04] MEDS: traMADol HCl 50 MG TAB PO SCH ×2 (05:44→12:22)
[2020-02-04] MEDS: Acetaminophen 325 MG TAB PO SCH ×2 (05:44→12:21)
[2020-02-04] MEDS: Ciprofloxacin 500 MG TAB PO SCH (05:44)
[2020-02-04 06:04] LABS: Hemoglobin 7.7 g/dL (12.0-16.0); Mean Corpuscular HGB CONC 31.4 g/dL (32.0-36.0); Mean Corpuscular Hemoglobin 25.7 pg (27.0-31.0); Mean Corpuscular Volume 82.1 fL (78.0-98.0); Mean Platelet Volume 9.4 fL (7.4-10.4); Platelet Count 208 thou/uL (130-400); RBC Distribution Width 17.6 % (11.5-14.5); Red Blood Cell (RBC) Count 3.01 mill/uL (4.20-5.40); White Blood Cell (WBC) Count 11.7 thou/uL (4.8-10.8)
[2020-02-04 06:21] LABS: Band 15 % (5-11); Lymphocytes 17 % (21-51); MDiff Complete? YES; Monocytes 12 % (0-10); Neutrophil 56 % (42-75)
[2020-02-04 06:42] LABS: Anion Gap 14 mmol/L (10-20); BUN (Urea Nitrogen) 8 mg/dL (9.8-20.1); Calc. Creatinine Clearance 69 mL/min (70-130); Calcium 7.6 mg/dL (7.8-10.44); Carbon Dioxide 19 mmol/L (23-31); Chloride 103 mmol/L (98-107); Estimated GFR-MDRD 72; Glucose 77 mg/dL (80-115); Phosphorus 4.2 mg/dL (2.3-4.7); Potassium 4.4 mmol/L (3.5-5.1); Sodium 132 mmol/L (136-145)
[2020-02-04] MEDS: metroNIDAZOLE 500 MG TAB PO SCH (08:52)
[2020-02-04 12:18] VITALS: BP 136/70; TEMP 98
[2020-02-04] MEDS: Ondansetron ODT 4 MG TAB PO PRN (13:49)
--- NOTE | 2020-02-04 16:56 | DIS ---
DATE OF ADMISSION: 01/23/2020 DATE OF DISCHARGE: 02/04/2020 ADMISSION DIAGNOSES: Abdominal pain, acute large bowel obstruction with a sigmoid mass and multiple liver lesions. DISCHARGE DIAGNOSES: Include acute large bowel obstruction due to sigmoid colon , adenocarcinoma with metastasis to the liver, acute kidney injury, chronic severe malnutrition, acute blood loss anemia, midline abdominal wound infection, and failure to thrive. CONSULTING PHYSICIANS: Dr. Grey of Heme-Onc and Palliative Care was also consulted. PROCEDURES: The patient went to the OR on January 23, 2020, and had an ex-lap, sigmoidectomy with end colostomy, segmental small-bowel resection with primary anastomosis, wedge liver biopsy, takedown of splenic flexure, and left triple lumen subclavian placement. HOSPITAL COURSE: The patient arrived to the emergency department for evaluation of abdominal pain. Upon evaluation by CT, she was found to have an acute large bowel obstruction due to sigmoid neoplasm with liver lesions. She was taken to the OR by Dr. Sarah and had a segmental sigmoidectomy and colostomy placement. They also biopsied the liver and placed a triple lumen. Biopsy results demonstrated the patient had a colorectal adenocarcinoma with mets to the liver. Dr. Grey of Heme-Onc was consulted, who recommended MediPort placement and followup on . Postoperatively, the patient did very poorly as she had extremely poor nutritional intake. She was barely eating and drinking. Her midline abdominal wound was nonhealing and infected. A wound VAC was placed. Once the wound opened up and drained, colostomy was working appropriately. On the day before discharge, the patient received CT scans of the abdomen and pelvis, which were concerning for colitis either ischemic or infectious. She was started on Cipro and Flagyl for 10 days. Palliative Care was involved in her care, who discussed with the family and ultimately agreed to send the patient home on hospice as she is not healing from her wounds and will likely not do well with chemotherapy. The patient agreed to be placed as a DNR, and arrangements were made for her to be discharged to hospice. DISCHARGE DISPOSITION: Home with home hospice. DISCHARGE CONDITION: Poor. PHYSICAL EXAMINATION: VITAL SIGNS: Temperature 98.1, pulse 90, respirations 16, oxygen saturation 98 % on room air, and blood pressure 124/68. GENERAL: Well-appearing elderly female, sitting up in bed with no signs of acute distress. PULMONARY: Equal chest rise and fall. No signs of acute respiratory distress. CARDIAC: Regular rate and rhythm. GI: Abdomen is soft, nontender, nondistended. Midline wound with serosanguineous output and foul smelling, dressings were changed. EXTREMITIES: 2+ pulses in all extremities. Gross motor and sensation is intact. NEUROLOGIC: GCS is 15. DISCHARGE INSTRUCTIONS: The patient was discharged to home hospice. Activity as tolerated. Regular diet with Ensure t.i.d. Wound care and ostomy care. DISCHARGE INSTRUCTIONS: Include 1. Cipro 500 mg q.12 hours for 10 days. 2. Tylenol. 3. Flexeril. 4. Flagyl 500 mg t.i.d. for 10 days. 5. Morphine p.r.n. 6. Zofran and Phenergan p.r.n. 7. Tramadol 50 mg q.6 hours scheduled and p.r.n. A prescription was not provided for any narcotics. Med reconciliation was completed. The only prescriptions provided to the patient were antibiotics. Home hospice will take care of her pain medications. FOLLOWUP APPOINTMENTS: The patient will follow up with Dr. Sarah in clinic on February 20, 2020 at 2 p.m. The patient can follow up with Dr. Grey as needed if something changes, then they decided to go forward with cancer treatment. This is a summary of the patient's hospitalization. For full details, please see her medical record in its entirety. This patient was seen and evaluated by Dr. Sarah and myself on the day of discharge. Job ID: [id number] MTDD
== END 2020-02-04 14:19 | disposition hospice, home (50) | DRG 329 ==
LOC: ERS 06:26 → SURG A 09:53 → IMCU/EMU 17:44 → SURG A 01-24 13:27
PROVIDERS: ADMIT Surgery; ATTEND Surgery
PROC: 0DTN0ZZ Resection of Sigmoid Colon, Open Approach (ICD-10-PCS; principal; 2020-01-23)
PROC: 0D1M0Z4 Bypass Descending Colon to Cutaneous, Open Approach (ICD-10-PCS; 2020-01-23)
PROC: 0FB00ZZ Excision of Liver, Open Approach (ICD-10-PCS; 2020-01-23)
PROC: 0DB80ZZ Excision of Small Intestine, Open Approach (ICD-10-PCS; 2020-01-23)
PROC: 02HV33Z Insertion of Infusion Device into Superior Vena Cava, Percutaneous Approach (ICD-10-PCS; 2020-01-23)
PROC: 30233N1 Transfusion of Nonautologous Red Blood Cells into Peripheral Vein, Percutaneous Approach (ICD-10-PCS; 2020-01-23)
DX: C18.7 Malignant neoplasm of sigmoid colon (principal); E43 Unspecified severe protein-calorie malnutrition; C78.7 Secondary malignant neoplasm of liver and intrahepatic bile duct; E87.1 Hypo-osmolality and hyponatremia; K86.1 Other chronic pancreatitis; N17.9 Acute kidney failure, unspecified; D62 Acute posthemorrhagic anemia; E27.40 Unspecified adrenocortical insufficiency; N39.0 Urinary tract infection, site not specified; T81.49XA Infection following a procedure, other surgical site, initial encounter; Z66 Do not resuscitate; Z51.5 Encounter for palliative care; I10 Essential (primary) hypertension; F17.210 Nicotine dependence, cigarettes, uncomplicated; E83.39 Other disorders of phosphorus metabolism; E16.1 Other hypoglycemia; E87.6 Hypokalemia; E86.1 Hypovolemia; E87.5 Hyperkalemia; Y83.8 Other surgical procedures as the cause of abnormal reaction of the patient, or of later complication, without mention of misadventure at the time of the procedure; Z90.49 Acquired absence of other specified parts of digestive tract; Z79.899 Other long term (current) drug therapy; Z68.24 Body mass index [BMI] 24.0-24.9, adult; Z72.89 Other problems related to lifestyle
CPT/HCPCS: 36415; 36416; 36430; 51701; 70470; 71045; 71260; 74177; 78306; 80048; 80053; 81003; 81015; 82378; 82533; 83036; 83690; 83735; 83880; 84100; 84134; 84146; 85007; 85025; 85027; 85610; 85730; 86301; 86850; 86900; 86901; 88307; 88309; 90471; 90670; 93005; 96374; 96375; 96376; A4353; A9503; G0009; J0360; J0694; J1100; J1200; J1650; J1720; J1885; J1940; J2001; J2185; J2250; J2270; J2405; J2543; J2550; J2704; J3010; J3480; J3490; J7030; J7050; P9016; P9045; Q0162; Q0163; Q9967; S0020; S0028; S0179

== ENCOUNTER 2020-02-09 12:29 | Inpatient (IN) | payer OTHER, SELFPAY ==
[~2020-02-09 12:29] MED LIST: Lidocaine 1% PF 5 ML VIAL ONE; Metoclopramide HCl 10 MG/2 ML VIAL ONE; Ondansetron PF 4 MG/2 ML Vial ONE; PHENYLEPHRINE-NS 100 MCG/ML 10 ML SYRINGE ONE; PROPOFOL 200 MG/20 ML VIAL ONE; Rocuronium Bromide 10 MG/ML (10ML VIAL) ONE; Succinylcholine Chloride 20 MG/ML 10 ml SYRINGE FS ONE
[2020-02-09] MEDS ORDERED: Piperacillin/Tazobactam 4.5 GM VIAL ONE (13:20)
[2020-02-09 14:14] LABS: Mean Corpuscular Hemoglobin 27.7 pg (27.0-31.0); Mean Corpuscular Volume 86.8 fL (78.0-98.0); Mean Platelet Volume 7.8 fL (7.4-10.4); Platelet Count 556 thou/uL (130-400); RBC Distribution Width 24.6 % (11.5-14.5); Red Blood Cell (RBC) Count 2.87 mill/uL (4.20-5.40); White Blood Cell (WBC) Count 9.1 thou/uL (4.8-10.8)
[2020-02-09 14:32] LABS: Anisocytosis MODERATE=16-30 cells (100X) (0-5/hpf); Band 12 % (5-11); Eosinophils 2 % (0-10); Lymphocytes 20 % (21-51); MDiff Complete? YES; Metamyelocyte 4 % (0-0); Monocytes 12 % (0-10); Neutrophil 49 % (42-75); Nucleated RBC 1 % (0); Platelet Morphology Comment Appears Increased; Polychromasia MODERATE = 3-4 cells (100X) (0-2/hpf); Target Cells SLIGHT = 2-5 cells (100X) (0-1/hpf)
[2020-02-09 14:36] LABS: ALT (SGPT) 25 U/L (8-55); AST (SGOT) 51 U/L (5-34); Albumin 2.2 g/dL (3.4-4.8); Alkaline Phosphatase 95 U/L (40-110); Anion Gap 10 mmol/L (10-20); BUN (Urea Nitrogen) 11 mg/dL (9.8-20.1); Bilirubin, Total 2.9 mg/dL (0.2-1.2); Calc. Creatinine Clearance 0 mL/min (70-130); Calcium 7.7 mg/dL (7.8-10.44); Carbon Dioxide 24 mmol/L (23-31); Chloride 99 mmol/L (98-107); Estimated GFR-MDRD 71; Globulin 4.1 g/dL (2.4-3.5); Glucose 90 mg/dL (80-115); Potassium 4.1 mmol/L (3.5-5.1); Protein, Total 6.3 g/dL (6.0-8.3); Sodium 129 mmol/L (136-145)
--- NOTE | 2020-02-09 14:53 | RAD ---
Exam: Chest one view HISTORY:Patient fell 8:00 AM. Pain. Comparison: 02/01/2020 FINDINGS: Cardiac silhouette: Normal Aorta: Atherosclerosis of the aortic knob Pulmonary vessels: Normal Costophrenic angles: Persistent blunting of the costophrenic angles. LUNGS: No masses or consolidation. Pneumothorax: None Osseous abnormalities: None IMPRESSION: 1. Chronic changes lung bases. 2. Atherosclerosis.
[2020-02-09] MEDS ORDERED: Vancomycin 1 GM/200 ML BAG ONE ×2 (15:00→18:29)
[2020-02-09] MEDS ORDERED: Sodium Chloride 0.9% 1,000 ML IV SCH (16:30)
--- NOTE | 2020-02-09 17:11 | HP ---
HISTORY OF PRESENT ILLNESS: Irene Almanzar is a 64-year-old black female with malignant sigmoid colon cancer obstruction with T4 lesion adherent to small bowel and metastasis to the liver, status post January 23, 2020, laparotomy, colon resection, and liver biopsy by Dr. Sarah. The patient was discharged home on 02/04/2020. The patient states that she developed opening of her wound 2 days ago. She presented today to the emergency room, and I was called stating that she might have a wound dehiscence. On evaluation, she has evisceration. She has a colostomy. ALLERGIES: NONE. REVIEW OF SYSTEMS: Ten-point review of systems is noncontributory. PAST MEDICAL HISTORY: Hypertension, although no treatment. PAST SURGICAL HISTORY: Prior history of cholecystectomy 6 years ago, sigmoid colon resection recently. SOCIAL HISTORY: The patient is , lives at home with her who has chronic kidney disease and congestive heart failure. PHYSICAL EXAMINATION: GENERAL: The patient is in the ER, in no distress. She is lying supine. Colostomy is healthy. VITAL SIGNS: Blood pressure 120/70, heart rate 74, respiratory rate 18. LUNGS: Clear to auscultation. CARDIAC: Regular rate and rhythm. No murmur or gallop. ABDOMEN: Soft. Fascial dehiscence with a very large open wound with exposed small bowel. Colostomy is healthy. EXTREMITIES: Unremarkable. LABORATORY DATA: White count 9 and hemoglobin 8. Sodium 129, BUN 11. Bilirubin 2.9; on 01/22, it was 0.6. ASSESSMENT: Wound dehiscence. PLAN: Operative closure. This is going to be a complicated closure. She may have to be a staged closure. Job ID: [id number]
[2020-02-09] MEDS ORDERED: Morphine 4 MG/ML VIAL ONE (17:26)
[2020-02-09] MEDS ORDERED: Fentanyl 100 MCG/2 ML VIAL ONE ×2 (17:42)
[2020-02-09] MEDS ORDERED: Famotidine/PF 20 mg/2ml Vial ONE (17:42)
[2020-02-09] MEDS ORDERED: Sodium Chloride 0.9% 30 ML ONE (18:04)
[2020-02-09] MEDS ORDERED: Albumin 5% 500 ML ONE (19:12)
[2020-02-09] MEDS ORDERED: Lorazepam 2 MG/ML VIAL SLOW IVP PRN (20:19)
[2020-02-09] MEDS ORDERED: Morphine 2 MG/ML SYRINGE SLOW IVP PRN ×2 (20:19→21:13)
[2020-02-09] MEDS ORDERED: Ondansetron ODT 4 MG TAB PO PRN (20:19)
[2020-02-09] MEDS ORDERED: Morphine 4 MG/ML VIAL SLOW IVP PRN (20:19)
[2020-02-09] MEDS ORDERED: Ondansetron PF 4 MG/2 ML Vial IVP PRN (20:19)
[2020-02-09] MEDS ORDERED: Propofol 1,000 MG/100 ML VIAL IV ONE (21:02)
[2020-02-09] MEDS ORDERED: Fentanyl BOLUS 250 ML IVPB PRN (21:13)
[2020-02-09] MEDS ORDERED: Propofol BOLUS 1,000 MG/100 ML VIAL IV PRN (21:13)
[2020-02-09] MEDS ORDERED: DISCONTINUE PREVIOUS NARCOTIC PAIN MEDICATIONS AND BENZODIAZEPINES FS SCH (21:13)
[2020-02-09] MEDS ORDERED: Ventilator Sedation Protocol 1 EACH FS SCH (21:15)
--- NOTE | 2020-02-09 21:28 | RAD ---
XR Chest 1 View Portable HISTORY: Respiratory failure COMPARISON: Earlier exam of 2:17 PM from the same date FINDINGS: There is been interval placement of an endotracheal tube with tip at the level of the clavicular head s. A nasogastric tube has been placed. This can be traced into the stomach with tip excluded from the film. A right subclavian central line has been placed with tip in the projection of the cavoatria l junction. No pneumothoraces are seen. There are small bilateral pleural effusions with adjacent atelectatic changes. No pneumothoraces are seen.
[2020-02-09] MEDS: Sodium Chloride 0.9% 1,000 ML IV SCH (21:29)
[2020-02-09 21:41] LABS: INR-International Normal Ratio 2.6; PTT 50.8 SEC (22.9-36.1); Prothrombin Time 27.3 SEC (12.0-14.7)
[2020-02-09 21:49] LABS: Actual Bicarbonate (HCO3a) 20.2 mEq/L (22-28); Base Excess (BEa) -3.5 mEq/L (-2.0 to +3.0); CO2 Tension 28.8 mmHg (35.0-45.0); Calcium, Ionized 1.11 mmol/L (1.12-1.30); Carboxyhemoglobin (COHb) 2.6 gm% (0.0-3.0); Hemoglobin (Hb) 4.4 g/dL (12.0-16.0); O2 Tension (PaO2), arterial 254.3 mmHg (> 80.0); Potassium - ABG Lab 4.35 mmol/L (3.70-5.30); pH, Arterial 7.46 (7.35-7.45)
[2020-02-09 21:50] LABS: Puncture Site ALINE
[2020-02-09 22:04] LABS: Hemoglobin 4.2 g/dL (12.0-16.0); Mean Corpuscular HGB CONC 31.9 g/dL (32.0-36.0); Mean Corpuscular Hemoglobin 28.2 pg (27.0-31.0); Mean Corpuscular Volume 88.5 fL (78.0-98.0); Mean Platelet Volume 7.5 fL (7.4-10.4); Platelet Count 420 thou/uL (130-400); RBC Distribution Width 24.5 % (11.5-14.5); White Blood Cell (WBC) Count 8.7 thou/uL (4.8-10.8)
[2020-02-09 22:09] LABS: ALT (SGPT) 24 U/L (8-55); AST (SGOT) 75 U/L (5-34); Albumin 1.9 g/dL (3.4-4.8); Alkaline Phosphatase 49 U/L (40-110); Anion Gap 9 mmol/L (10-20); BUN (Urea Nitrogen) 9 mg/dL (9.8-20.1); Calc. Creatinine Clearance 0 mL/min (70-130); Calcium 7.5 mg/dL (7.8-10.44); Carbon Dioxide 20 mmol/L (23-31); Chloride 105 mmol/L (98-107); Estimated GFR-MDRD 87; Globulin 2.2 g/dL (2.4-3.5); Glucose 97 mg/dL (80-115); Magnesium 1.7 mg/dL (1.6-2.6); Phosphorus 3.2 mg/dL (2.3-4.7); Potassium 4.4 mmol/L (3.5-5.1); Protein, Total 4.1 g/dL (6.0-8.3); Sodium 130 mmol/L (136-145)
[2020-02-09 22:12] LABS: Bilirubin Negative (Negative); Blood, Urine Negative (Negative); Clarity Turbid (Clear); Glucose, Urine (Dipstick) Normal (Negative); Leukocyte Negative Leu/uL (Negative); Nitrite Negative (Negative); Protein, Urine (Dipstick) 20 mg/dL (Neg-Trace); RBC/HPF 0-3 HPF (0-3); Urobilinogen Normal mg/dL (Less than 2); WBC/HPF 0-3 HPF (0-3)
[2020-02-09 22:18] LABS: Bacteria/HPF Rare-Few HPF (None Seen)
[2020-02-09 22:19] LABS: Urine Culture Reflex No No
[2020-02-09] MEDS: fentaNYL Citrate/PF 2,000 MCG in Sodium Chloride 0.9% 60 ML IV SCH (22:23)
[2020-02-09 22:25] LABS: Band 8 % (5-11); Hypochromia SLIGHT = 6-15 cells (100X) (0-5/hpf); Lymphocytes 13 % (21-51); MDiff Complete? YES; Monocytes 7 % (0-10); Neutrophil 72 % (42-75); Platelet Morphology Comment Appears Increased
[2020-02-09] MEDS ORDERED: Calcium Chloride 1 GM/10 ML Abboject SYRINGE IVP SCH (22:30)
[2020-02-10] MEDS: Piperacillin/Tazobactam 4.5 GM in Sodium Chloride 0.9% 100 ML IVPB SCH ×4 (00:05→22:50)
--- NOTE | 2020-02-10 00:05 | OP ---
DATE OF PROCEDURE: 02/09/2020 PREOPERATIVE DIAGNOSES: Extensive wound dehiscence with 2 small bowel perforations and fecal peritonitis. Colostomy status. Recently underwent laparotomy, colon resection, Homa's procedure, small-bowel resection for T4 N0 M1 colon cancer, sigmoid. POSTOPERATIVE DIAGNOSES: Extensive wound dehiscence with 2 small bowel perforations and fecal peritonitis. Colostomy status. Recently underwent laparotomy, colon resection, Homa's procedure, small-bowel resection for T4 N0 M1 colon cancer, sigmoid. PROCEDURES PERFORMED: Exploratory laparotomy, adhesiolysis, abdominal washout, closure of serosal tears, segmental resection of small bowel, not reanastomosed at this time, abdominal washout, open abdomen ABThera applied. Right subclavian vein central line placed by Anesthesia. ANESTHESIA: General. BLOOD TRANSFUSION: 2 units of blood postoperatively ordered. Preoperative hemoglobin 9, 8 intraoperatively. Intermittently, hypotensive despite fluid resuscitation. DESCRIPTION OF PROCEDURE: The patient was taken to the operating room where under general anesthesia, abdomen was prepared with Betadine and draped in routine fashion. The patient had dehiscence of her entire fascia from her laparotomy. There was chronic inflammatory exudate throughout the abdominal cavity. There was scarring of the small bowel. There were interloop abscesses and fecal in pockets. I took down adhesions bluntly. There were few serosal tears for which 3-0 silk Lembert sutures were applied. There was a segment of bowel that had two enterotomies. The leaking small bowel contents were very inflamed and due to the patient's intermittent hypotension and anemia and poor nutritional status, it was decided not to do anastomosis, but instead I resected small segment of bowel approximately 8 cm, divided the mesentery between clamps, ligating with 2-0 silk ties, stapling the small bowel and submitting the small bowel to Pathology. Hemostasis was gained with cautery. The entire peritoneal cavity was irrigated in all quadrants, subhepatic spaces, and subdiaphragmatic spaces. Irrigant evacuated. Inflammatory exudate removed as possible. There was some oozing in the pelvis for which Halley and Avitene were applied. ABThera applied. The patient tolerated the procedure well, transferred to the ICU in stable condition. Job ID: [id number]
[2020-02-10] MEDS: Sodium Chloride 0.9% 1,000 ML IV SCH ×5 (00:12→22:58)
[2020-02-10] MEDS: Lorazepam 2 MG/ML VIAL SLOW IVP PRN ×2 (01:07→16:47)
[2020-02-10] MEDS ORDERED: Hydrocortisone Sod Succ/PF 100 mg/2 ml Vial IVP SCH (01:45)
[2020-02-10 04:55] LABS: Hemoglobin 8.4 g/dL (12.0-16.0); INR-International Normal Ratio 1.5; Mean Corpuscular HGB CONC 34.4 g/dL (32.0-36.0); Mean Corpuscular Hemoglobin 29.3 pg (27.0-31.0); Mean Corpuscular Volume 85.2 fL (78.0-98.0); Mean Platelet Volume 7.5 fL (7.4-10.4); PTT 38.3 SEC (22.9-36.1); Platelet Count 254 thou/uL (130-400); Prothrombin Time 18.4 SEC (12.0-14.7); RBC Distribution Width 17.6 % (11.5-14.5); Red Blood Cell (RBC) Count 2.87 mill/uL (4.20-5.40); White Blood Cell (WBC) Count 10.8 thou/uL (4.8-10.8)
[2020-02-10 05:13] LABS: Anisocytosis SLIGHT = 6-15 cells (100X) (0-5/hpf); Band 16 % (5-11); Hypochromia SLIGHT = 6-15 cells (100X) (0-5/hpf); Lymphocytes 2 % (21-51); MDiff Complete? YES; Monocytes 10 % (0-10); Neutrophil 72 % (42-75); Platelet Morphology Comment Appears Adequate; Polychromasia SLIGHT = 2-3 cells (100X) (0-2/hpf)
[2020-02-10 05:14] LABS: ALT (SGPT) 28 U/L (8-55); AST (SGOT) 80 U/L (5-34); Albumin 2.6 g/dL (3.4-4.8); Alkaline Phosphatase 52 U/L (40-110); Anion Gap 11 mmol/L (10-20); BUN (Urea Nitrogen) 10 mg/dL (9.8-20.1); Bilirubin, Total 5.4 mg/dL (0.2-1.2); Calc. Creatinine Clearance 72 mL/min (70-130); Calcium 8.2 mg/dL (7.8-10.44); Carbon Dioxide 20 mmol/L (23-31); Chloride 106 mmol/L (98-107); Estimated GFR-MDRD 68; Globulin 2.3 g/dL (2.4-3.5); Glucose 91 mg/dL (80-115); Magnesium 1.7 mg/dL (1.6-2.6); Phosphorus 3.6 mg/dL (2.3-4.7); Potassium 4.4 mmol/L (3.5-5.1); Protein, Total 4.9 g/dL (6.0-8.3); Sodium 133 mmol/L (136-145)
[2020-02-10] MEDS ORDERED: Furosemide 20 MG/2 ML VIAL SLOW IVP SCH (06:45)
[2020-02-10 06:53] LABS: Actual Bicarbonate (HCO3a) 18.2 mEq/L (22-28); Base Excess (BEa) -4.9 mEq/L (-2.0 to +3.0); CO2 Tension 26.6 mmHg (35.0-45.0); Carboxyhemoglobin (COHb) 1.4 gm% (0.0-3.0); Hemoglobin (Hb) 8.3 g/dL (12.0-16.0); O2 Tension (PaO2), arterial 112.5 mmHg (> 80.0); Potassium - ABG Lab 4.29 mmol/L (3.70-5.30); pH, Arterial 7.45 (7.35-7.45)
[2020-02-10 06:54] LABS: Puncture Site ALINE
[2020-02-10] MEDS ORDERED: Sodium Chloride 0.9% 500 ML IVPB SCH (08:30)
[2020-02-10] MEDS ORDERED: Calcium Chloride 13.6 MEQ in Sodium Chloride 0.9% 100 ML IVPB SCH (08:30)
[2020-02-10] MEDS ORDERED: Prevnar 13-Val Conj/PF 0.5 ML SYRINGE IM ONE (09:00)
[2020-02-10] MEDS: Pantoprazole 40 MG VIAL IVP SCH (09:12)
--- NOTE | 2020-02-10 12:31 | CON ---
DATE OF CONSULTATION: 02/10/2020 HISTORY OF PRESENT ILLNESS: A 64-year-old female, whom I looked in the OR last night for evisceration. She has left mechanically ventilated. I was consulted to assist in her management. PAST MEDICAL HISTORY: Remarkable for metastatic colon cancer. She had an operative procedure on January 22, which consisted of exploratory laparotomy, sigmoidectomy and colostomy, segmental small-bowel resection with primary anastomosis, wedge liver biopsy, takedown of splenic flexure, and placement of a triple-lumen catheter. She was discharged on 02/03. FAMILY HISTORY: Negative for lung disease in early age. REVIEW OF SYSTEMS: Not obtainable. PHYSICAL EXAMINATION: VITAL SIGNS: Heart rate is 88, blood pressure 98/56, respiratory rates in the teens, oximetry is 100%. Intake and output is 2893. LUNGS: Clear. HEART: Regular rhythm. ABDOMEN: Soft. EXTREMITIES: Without asymmetry. LABORATORY DATA: Hemoglobin was 4.2 last night, it is 8.4 this morning; white count is 10.8; platelets 254. Creatinine is normal at 1. The pH is 7.45, pCO2 is 26 , pO2 is 112. IMPRESSION: Status post evisceration with washout last night. Tentatively to go back to the operating room tomorrow. We will continue with current mechanical ventilation, sedation, and supportive care. Critical care time 30 min Job ID: [id number] MTDD
[2020-02-10] MEDS ORDERED: Sodium Chloride 0.9% 1,000 ML IV SCH (12:45)
--- NOTE | 2020-02-10 13:08 | PRG ---
DATE OF SERVICE: 02/10/2020 SUBJECTIVE: Irene Almanzar is in ICU. She is on the ventilator. She is sedated with open wound ABThera in place. Her hemoglobin postop for yesterday was 4.2, and she is given 3 units of blood and her hemoglobin this morning is 8.4. White count 10, platelet count 254,000. Postop for yesterday, PT was 27, INR 2.6. She is given 2 units of fresh frozen plasma. This morning, her PT is 18, INR 1.5. Her blood gases are appropriate on the ventilator. Her BUN and creatinine are normal at 10 and 1.0 respectively. Potassium 4.4, sodium 133. Bilirubin is 5.4, AST 80. Albumin is 2.6. Pre-albumin last hospitalization was very low. Chest x-ray postoperatively reveals nasogastric tube to be in good position, endotracheal tube to be in good position, central line is in good position, no acute changes. OBJECTIVE: LUNGS: Clear to auscultation. CARDIAC: Regular rate and rhythm without murmur or gallop. ABDOMEN: Soft, ABThera in place. EXTREMITIES: Unremarkable. Urine output on the low side. She was given Lasix last night. ASSESSMENT AND PLAN: 1. Metastatic colon cancer, previously obstructed with colon resection, colostomy, and liver metastasis. Biopsy, node-negative. The patient apparently was home on hospice. I am unaware of code status. Plan is to continue mechanical ventilation. 2. I think she is still clinically dehydrated. Her urine output is marginally low, although the BUN and creatinine are normal. I would continue IV fluid resuscitation. Her hyponatremia, preoperative sodium 129 has improved to 133. Continue normal saline. 3. Malnutrition, significant preoperative weight loss prior to her colostomy formation and colon resection with poor oral intake between discharge after colon resection and this admission. Initiate TPN. Total IV fluids 150 until she is more euvolemic. Continue to monitor her hemoglobin during the day. 4. Coagulopathy, improved with fresh frozen plasma and resuscitation and warming. Continue to observe her hemoglobin throughout the day. 5. Colostomy status. Job ID: [id number]
[2020-02-10 13:14] LABS: #Eosinphils 0.1 thou/uL (0.0-0.7); #Monocytes 1.4 thou/uL (0.11-0.59); #Neutrophils 10.9 thou/uL (1.40-6.50); %Eosinophils 0.4 % (0.0-10.0); %Lymphocytes 7.8 % (21.0-51.0); %Monocytes 10.2 % (0.0-10.0); %Neutrophils 81.5 % (42.0-75.0); Hemoglobin 7.8 g/dL (12.0-16.0); Mean Corpuscular HGB CONC 34.3 g/dL (32.0-36.0); Mean Corpuscular Hemoglobin 29.1 pg (27.0-31.0); Mean Corpuscular Volume 84.8 fL (78.0-98.0); Mean Platelet Volume 7.6 fL (7.4-10.4); Platelet Count 270 thou/uL (130-400); Red Blood Cell (RBC) Count 2.69 mill/uL (4.20-5.40); White Blood Cell (WBC) Count 13.4 thou/uL (4.8-10.8)
[2020-02-10] MEDS: Propofol 1,000 MG/100 ML VIAL IV PRN (15:36)
[2020-02-10] MEDS: Albumin 25% 25 GM/100 ML BOT IVPB SCH ×2 (18:13→23:03)
[2020-02-10 20:25] LABS: Hemoglobin 7.2 g/dL (12.0-16.0)
[2020-02-10] MEDS: [UNRECOGNIZED DRUG - OTHER] IV SCH (22:21)
[2020-02-10] MEDS: SODIUM CHLORIDE IV SCH (22:21)
[2020-02-10] MEDS: SODIUM ACETATE IV SCH (22:21)
[2020-02-10] MEDS: CALCIUM CHLORIDE IV SCH (22:21)
[2020-02-11] MEDS: Propofol 1,000 MG/100 ML VIAL IV PRN ×3 (03:41→22:07)
[2020-02-11 03:47] LABS: Mean Corpuscular Hemoglobin 30.3 pg (27.0-31.0); Mean Corpuscular Volume 86.7 fL (78.0-98.0); Mean Platelet Volume 7.9 fL (7.4-10.4); Platelet Count 253 thou/uL (130-400); RBC Distribution Width 19.6 % (11.5-14.5); White Blood Cell (WBC) Count 14.5 thou/uL (4.8-10.8)
[2020-02-11 03:48] LABS: Band 11 % (5-11); Lymphocytes 9 % (21-51); MDiff Complete? YES; Monocytes 15 % (0-10); Neutrophil 65 % (42-75); Platelet Morphology Comment Appears Adequate
[2020-02-11 03:53] LABS: ALT (SGPT) 20 U/L (8-55); AST (SGOT) 37 U/L (5-34); Albumin 2.9 g/dL (3.4-4.8); Alkaline Phosphatase 50 U/L (40-110); Anion Gap 12 mmol/L (10-20); BUN (Urea Nitrogen) 11 mg/dL (9.8-20.1); Bilirubin, Total 4.1 mg/dL (0.2-1.2); Calc. Creatinine Clearance 56 mL/min (70-130); Calcium 7.5 mg/dL (7.8-10.44); Carbon Dioxide 19 mmol/L (23-31); Chloride 108 mmol/L (98-107); Estimated GFR-MDRD 51; Globulin 2.1 g/dL (2.4-3.5); Glucose 133 mg/dL (80-115); Potassium 3.7 mmol/L (3.5-5.1); Sodium 135 mmol/L (136-145)
[2020-02-11 04:28] LABS: Magnesium 1.7 mg/dL (1.6-2.6); Phosphorus 3.6 mg/dL (2.3-4.7)
[2020-02-11] MEDS: fentaNYL Citrate/PF 2,000 MCG in Sodium Chloride 0.9% 60 ML IV SCH (05:29)
[2020-02-11] MEDS: Sodium Chloride 0.9% 1,000 ML IV SCH ×3 (06:28→11:14)
[2020-02-11] MEDS: Piperacillin/Tazobactam 4.5 GM in Sodium Chloride 0.9% 100 ML IVPB SCH ×3 (06:29→21:26)
[2020-02-11] MEDS: Albumin 25% 25 GM/100 ML BOT IVPB SCH ×3 (06:41→17:29)
[2020-02-11] MEDS ORDERED: Magnesium Sulfate 3 GM in Sodium Chloride 0.9% 250 ML 250 ML IVPB SCH (06:45)
[2020-02-11 07:24] LABS: Actual Bicarbonate (HCO3a) 16.6 mEq/L (22-28); Base Excess (BEa) -7.1 mEq/L (-2.0 to +3.0); CO2 Tension 26.9 mmHg (35.0-45.0); Calcium, Ionized 1.07 mmol/L (1.12-1.30); Carboxyhemoglobin (COHb) 0.3 gm% (0.0-3.0); Hemoglobin (Hb) 8.2 g/dL (12.0-16.0); O2 Tension (PaO2), arterial 170.8 mmHg (> 80.0); Potassium - ABG Lab 3.54 mmol/L (3.70-5.30); pH, Arterial 7.41 (7.35-7.45)
[2020-02-11] MEDS: Pantoprazole 40 MG VIAL IVP SCH (07:40)
[2020-02-11 07:49] LABS: ALV-art Gradient 80.775 (0-20); Puncture Site ALINE
[2020-02-11] MEDS ORDERED: Furosemide 40 MG/4 ML VIAL SLOW IVP SCH (11:15)
--- NOTE | 2020-02-11 11:55 | PRG ---
DATE OF SERVICE: 02/11/2020 SUBJECTIVE: Irene Almanzar is in the ICU. She is on the ventilator. She is sedated. OBJECTIVE: VITAL SIGNS: Blood pressure 130/76, heart rate 71. Gastric tube output 50 mL over 24 hours. Tube was palpated in proper position intraoperatively. VAC drainage 400 to 500 mL for 24 hours. Urine output 750 mL for 24 hours. LUNGS: Clear to auscultation. CARDIAC: Regular rate and rhythm without murmur or gallop. ABDOMEN: Soft. ABThera open abdomen dressing in place. EXTREMITIES: Unremarkable. Mild edema. LABORATORY DATA: This morning, her hemoglobin is 7. She is given 1 unit of blood. White count 14.5. Basic metabolic profile; creatinine 1.29, BUN 11, carbon dioxide 19, chloride 108, sodium 135. ASSESSMENT AND PLAN: 1. Mild acute kidney injury. Continue hydration, but diminish IV fluids and give a dose of Lasix to try to decrease edema. Anticipating return to the operating room tomorrow, Wednesday, by Dr. Sarah for abdominal washout, re-establishment of bowel continuity with small bowel anastomosis to check small bowel for any leaks, and possible wound closure. There has been no colostomy output. 2. Anemia. One unit of blood. 3. Severe malnutrition and cachexia. Continue TPN and albumin administration. 4. Stage IV colon cancer, status post sigmoid colon obstruction and liver biopsy with node-negative. 5. Prognosis long-term poor, but we would plan attempts with therapy and to get her home postoperatively. Job ID: [id number]
[2020-02-11] MEDS: Lorazepam 2 MG/ML VIAL SLOW IVP PRN (14:23)
[2020-02-11 17:40] LABS: Hemoglobin 8.3 g/dL (12.0-16.0); Mean Corpuscular HGB CONC 34.7 g/dL (32.0-36.0); Mean Corpuscular Hemoglobin 29.9 pg (27.0-31.0); Mean Platelet Volume 7.8 fL (7.4-10.4); Platelet Count 232 thou/uL (130-400); RBC Distribution Width 18.6 % (11.5-14.5); Red Blood Cell (RBC) Count 2.77 mill/uL (4.20-5.40); White Blood Cell (WBC) Count 13.3 thou/uL (4.8-10.8)
[2020-02-11 18:14] LABS: Anion Gap 11 mmol/L (10-20); BUN (Urea Nitrogen) 13 mg/dL (9.8-20.1); Calc. Creatinine Clearance 59 mL/min (70-130); Calcium 7.9 mg/dL (7.8-10.44); Carbon Dioxide 20 mmol/L (23-31); Chloride 108 mmol/L (98-107); Estimated GFR-MDRD 54; Glucose 119 mg/dL (80-115); Potassium 3.2 mmol/L (3.5-5.1); Sodium 136 mmol/L (136-145)
[2020-02-11 18:15] LABS: Anisocytosis SLIGHT = 6-15 cells (100X) (0-5/hpf); Band 4 % (5-11); Lymphocytes 13 % (21-51); MDiff Complete? YES; Metamyelocyte 1 % (0-0); Monocytes 17 % (0-10); Neutrophil 65 % (42-75); Ovalocytes SLIGHT = 2-5 cells (100X) (0-1/hpf); Platelet Morphology Comment Appears Adequate; Polychromasia SLIGHT = 2-3 cells (100X) (0-2/hpf)
[2020-02-11] MEDS ORDERED: Potassium Phosphate 30 MMOL in Sodium Chloride 0.9% 500 ML IVPB SCH (18:30)
--- NOTE | 2020-02-11 20:16 | PRG ---
DATE OF SERVICE: 02/11/2020 SUBJECTIVE: Irene Almanzar remains sedated for ventilation. OBJECTIVE: VITAL SIGNS: Heart rate in the 70s, blood pressure 126/53, respiratory rates in the teens, oximetry is 99. HEAD AND NECK: Unchanged. LUNGS: Clear. HEART: Regular rhythm. ABDOMEN: Bandaged. EXTREMITIES: Without edema. LABORATORY DATA: White count 13.3, hemoglobin 8.3, platelets 232. Sodium 136, potassium 3.2, chloride 108, bicarb 20, BUN 13, creatinine 1.22. IMPRESSION: Status post laparotomy for wound dehiscence. At some point, she is scheduled to go back for another abdominal washout. PLAN: Continue current care. Critical care time 35 min. Job ID: [id number] MTDD
[2020-02-11] MEDS ORDERED: Clopidogrel Bisulfate 75 MG TAB ONE (21:24)
[2020-02-11] MEDS: [UNRECOGNIZED DRUG - OTHER] IV SCH (22:07)
[2020-02-11] MEDS: CALCIUM CHLORIDE IV SCH (22:07)
[2020-02-11] MEDS: SODIUM CHLORIDE IV SCH (22:07)
[2020-02-11] MEDS: SODIUM ACETATE IV SCH (22:07)
[2020-02-12] MEDS ORDERED: Dextrose 50% Abboject 50 ML SYRINGE ONE (00:27)
[2020-02-12] MEDS ORDERED: Dextrose 50% Abboject 50 ML SYRINGE SLOW IVP SCH (00:30)
[2020-02-12 04:53] LABS: ALT (SGPT) 17 U/L (8-55); AST (SGOT) 27 U/L (5-34); Alkaline Phosphatase 59 U/L (40-110); Anion Gap 9 mmol/L (10-20); BUN (Urea Nitrogen) 16 mg/dL (9.8-20.1); Calc. Creatinine Clearance 63 mL/min (70-130); Calcium 7.8 mg/dL (7.8-10.44); Carbon Dioxide 22 mmol/L (23-31); Chloride 109 mmol/L (98-107); Estimated GFR-MDRD 58; Globulin 2.1 g/dL (2.4-3.5); Glucose 98 mg/dL (80-115); Magnesium 2.1 mg/dL (1.6-2.6); Potassium 3.3 mmol/L (3.5-5.1); Protein, Total 5.1 g/dL (6.0-8.3); Sodium 137 mmol/L (136-145)
[2020-02-12 04:55] LABS: Phosphorus 2.6 mg/dL (2.3-4.7)
[2020-02-12 05:06] LABS: Band 4 % (5-11); Hemoglobin 8.4 g/dL (12.0-16.0); Hypochromia SLIGHT = 6-15 cells (100X) (0-5/hpf); Lymphocytes 13 % (21-51); MDiff Complete? YES; Mean Corpuscular Hemoglobin 29.5 pg (27.0-31.0); Mean Corpuscular Volume 86.9 fL (78.0-98.0); Mean Platelet Volume 7.6 fL (7.4-10.4); Monocytes 4 % (0-10); Neutrophil 79 % (42-75); Platelet Count 247 thou/uL (130-400); Platelet Morphology Comment Appears Adequate; RBC Distribution Width 19.3 % (11.5-14.5); Red Blood Cell (RBC) Count 2.85 mill/uL (4.20-5.40); White Blood Cell (WBC) Count 13.2 thou/uL (4.8-10.8)
[2020-02-12] MEDS ORDERED: Potassium Chloride 40 MEQ in Sodium Chloride 0.9% 250 ML 250 ML IVPB SCH (05:30)
[2020-02-12] MEDS: Piperacillin/Tazobactam 4.5 GM in Sodium Chloride 0.9% 100 ML IVPB SCH ×3 (05:37→21:51)
[2020-02-12 07:50] LABS: Base Excess (BEa) -0.6 mEq/L (-2.0 to +3.0); CO2 Tension 33.4 mmHg (35.0-45.0); Calcium, Ionized 1.11 mmol/L (1.12-1.30); Carboxyhemoglobin (COHb) 0.7 gm% (0.0-3.0); Hemoglobin (Hb) 8.8 g/dL (12.0-16.0); O2 Tension (PaO2), arterial 129.8 mmHg (> 80.0); Potassium - ABG Lab 3.63 mmol/L (3.70-5.30); pH, Arterial 7.46 (7.35-7.45)
[2020-02-12 07:52] LABS: Puncture Site LINE
[2020-02-12] MEDS: Pantoprazole 40 MG VIAL IVP SCH (07:59)
[2020-02-12] MEDS ORDERED: Rocuronium Bromide 10 MG/ML (10ML VIAL) ONE (09:56)
[2020-02-12] MEDS ORDERED: PROPOFOL 200 MG/20 ML VIAL ONE (09:56)
[2020-02-12] MEDS ORDERED: PHENYLEPHRINE-NS 100 MCG/ML 10 ML SYRINGE ONE (09:56)
[2020-02-12] MEDS ORDERED: Ondansetron PF 4 MG/2 ML Vial ONE (09:56)
[2020-02-12] MEDS: fentaNYL Citrate/PF 2,000 MCG in Sodium Chloride 0.9% 60 ML IV SCH (10:11)
[2020-02-12] MEDS: Propofol 1,000 MG/100 ML VIAL IV PRN (10:12)
--- NOTE | 2020-02-12 11:26 | PRG ---
DATE OF SERVICE: 02/12/2020 SUBJECTIVE: Ms. Almanzar remains mechanically ventilated. She is tentatively being schedule for repeat abdominal washout. OBJECTIVE: VITAL SIGNS: Heart rate in the 70s and blood pressure . LUNGS: Clear. HEART: Regular rhythm. ABDOMEN: Bandaged. EXTREMITIES: Without edema. LABORATORY DATA: White count 13.2, hemoglobin 8.4, and platelets 247. Sodium 137, potassium 3.3, chloride 109, bicarb 20, BUN 16, and creatinine 1.14. A pH of 7.46, CO2 of 33, and pO2 of 129. IMPRESSION AND PLAN: Respiratory failure, status post abdominal evisceration after wound dehiscence. Once surgery is complete, we will work aggressively at weaning and extubation. Job ID: [id number]
[2020-02-12] MEDS: Sodium Chloride 0.9% 1,000 ML IV SCH (11:44)
--- NOTE | 2020-02-12 12:13 | PRG ---
DATE OF SERVICE: 02/12/2020 SUBJECTIVE: Ms. 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 The patient is now postoperative day #3, status post exploratory laparotomy, segmental small-bowel resection, abdominal washout, and temporary abdominal closure with wound VAC. The patient has a history of severe chronic malnutrition. She is on mechanical ventilator support. Currently, on no vasopressor or inotropic support. OBJECTIVE: VITAL SIGNS: This morning include blood pressure 111/74, pulse is 68, respiratory rate is 10, maximum temperature in last 24 hours is 98 degrees Fahrenheit, oxygen saturation is 100% on FiO2 of 30%. HEART: Reveals regular rate and rhythm. LUNGS: Clear to auscultation bilaterally. Breathing, regular and nonlabored. ABDOMEN: Soft and nondistended. Wound VAC is in place. The previous colostomy is covered with ABThera dressing. EXTREMITIES: Reveal 2+ radial and pedal pulses bilaterally. No ankle edema is present. NEUROLOGIC: Reveals no focal deficits present. LABORATORY FINDINGS: Today include CBC with 13,200 white blood cells, hemoglobin and hematocrit are 8.4 and 24.7 respectively. Platelet count is 247,000. Metabolic profile; sodium 137, potassium 3.3, chloride is 109, bicarb is 22, BUN is 16, creatinine is 1.14, glucose 98, phosphorus is 2.6, magnesium is 2.1. IMPRESSION: 1. Postop day #3, status post exploratory laparotomy, segmental small bowel resection, abdominal washout, with wound VAC. 2. Acute respiratory failure. 3. Acute hypokalemia. 4. Acute hypophosphatemia. 5. Chronic anemia, stable. 6. Severe protein calorie malnutrition. PLAN: 1. Continue with full mechanical ventilator support. 2. The patient returns to the operating room today for abdominal washout and possible re-establishment of bowel continuity and perhaps abdominal closure. 3. Correct abnormal electrolytes. 4. Above findings and plan will be discussed with the patient's family upon return from the operating room. Total critical care time is 40 minutes. Job ID: [id number]
[2020-02-12] MEDS ORDERED: GoLYTELY 4,000 ml Bottle PO SCH (13:15)
[2020-02-12] MEDS ORDERED: hydrALAZINE 20 MG/ML VIAL SLOW IVP PRN (16:43)
--- NOTE | 2020-02-12 19:52 | OP ---
DATE OF PROCEDURE: 02/12/2020 PREOPERATIVE DIAGNOSIS: Status post partial laparotomy with segmental small bowel resection and temporary abdominal closure, wound VAC. POSTOPERATIVE DIAGNOSIS: Status post partial laparotomy with segmental small bowel resection and temporary abdominal closure, wound VAC. OPERATIONS PERFORMED: 1. Exploratory laparotomy. 2. Abdominal washout. 3. Primary small bowel anastomosis. ANESTHESIA: General endotracheal. ESTIMATED BLOOD LOSS: Negligible. FLUIDS GIVEN: 400 mL crystalloids. COUNTS: Sponge and instrument counts were verified as correct x2. COMPLICATIONS: None apparent at the time of operation. INDICATIONS FOR OPERATION: A 64-year-old woman, who is postop day #3, status post exploratory laparotomy, abdominal washout, segmental small bowel resection with temporary abdominal closure using wound VAC. Patient recently underwent exploratory laparotomy, sigmoidectomy with end colostomy, segmental small bowel resection with primary anastomosis, and a wedge liver biopsy for stage IV adenocarcinoma of the colon with small bowel and liver metastasis. She was taken to the operating room three days ago for respiratory laparotomy, abdominal washout with segmental small bowel resection for bowel perforations and fecal peritonitis. Due to significant inflammation and edema, abdomen was temporarily closed using wound VAC. Patient is brought to the operating room today for second-look. Findings are consistent with resolving small-bowel edema. No significant intraperitoneal purulence present. DESCRIPTION OF PROCEDURE: Informed consent was obtained from the patient's . Patient is brought to the operating room and placed in supine position. Following general anesthesia, the external wound VAC dressing was removed. The abdomen is sterilely prepped and draped in usual fashion. Internal wound VAC dressing was then removed and peritoneal cavity entered. Small bowel was inspected from ligament of Treitz down to the ileocecal junction. The stapled ends of the previous segmental small bowel resections were noted. The previous enteroenterostomy site remained intact. Significant amount of hard stool is noted within the entire colon including the cecum. The colostomy is inspected for viability. Finding no other pathology, the abdominal cavity was copiously irrigated with saline until it was clear. Fibrinous exudates in the right lateral gutter were evacuated with suction. We then proceeded with reestablishment of bowel continuity. The staple ends of the small bowel were approximated in a [id number] fashion using interrupted sutures of 3-0 silk. Enterotomies were made at both apices through which free ends of CYRIL stapler was introduced and a functional end-to-end but anatomic [id number] enteroenterostomy was perfected. The common enterotomies were closed using reloads of CYRIL stapler. Resultant mesenteric defect was closed using interrupted sutures of 3-0 silk. Bowel was returned to normal anatomic location. At this juncture, all sponges, instruments, and needle counts reported as correct x2. ABThera dressing was brought to the operative field using this to cover the entire viscera. Large wound VAC sponge was placed over this. External wound VAC dressing was then drawn over the entire abdomen and connected to vacuum assisted device with good suction. A colostomy appliance was then placed over the viable colostomy. Patient tolerated the operation without any apparent complication and was returned to the intensive care unit in critical, but stable condition. Job ID: [id number]
[2020-02-12] MEDS: SODIUM ACETATE IV SCH (23:41)
[2020-02-12] MEDS: POTASSIUM CHLORIDE IV SCH (23:41)
[2020-02-12] MEDS: [UNRECOGNIZED DRUG - OTHER] IV SCH (23:41)
[2020-02-13 04:05] LABS: Band 5 % (5-11); Hemoglobin 9.5 g/dL (12.0-16.0); Lymphocytes 6 % (21-51); MDiff Complete? YES; Mean Corpuscular HGB CONC 33.4 g/dL (32.0-36.0); Mean Corpuscular Hemoglobin 29.6 pg (27.0-31.0); Mean Corpuscular Volume 88.6 fL (78.0-98.0); Mean Platelet Volume 7.8 fL (7.4-10.4); Metamyelocyte 1 % (0-0); Monocytes 15 % (0-10); Neutrophil 73 % (42-75); Platelet Count 225 thou/uL (130-400); Platelet Morphology Comment Appears Adequate; RBC Distribution Width 20.1 % (11.5-14.5); Red Blood Cell (RBC) Count 3.21 mill/uL (4.20-5.40); White Blood Cell (WBC) Count 15.3 thou/uL (4.8-10.8)
[2020-02-13 04:09] LABS: ALT (SGPT) 24 U/L (8-55); AST (SGOT) 34 U/L (5-34); Albumin 2.4 g/dL (3.4-4.8); Alkaline Phosphatase 126 U/L (40-110); Anion Gap 11 mmol/L (10-20); BUN (Urea Nitrogen) 23 mg/dL (9.8-20.1); Bilirubin, Total 2.6 mg/dL (0.2-1.2); Calc. Creatinine Clearance 82 mL/min (70-130); Calcium 7.3 mg/dL (7.8-10.44); Carbon Dioxide 22 mmol/L (23-31); Chloride 110 mmol/L (98-107); Estimated GFR-MDRD 72; Globulin 2.3 g/dL (2.4-3.5); Glucose 108 mg/dL (80-115); Potassium 3.3 mmol/L (3.5-5.1); Protein, Total 4.7 g/dL (6.0-8.3); Sodium 140 mmol/L (136-145)
[2020-02-13] MEDS: Piperacillin/Tazobactam 4.5 GM in Sodium Chloride 0.9% 100 ML IVPB SCH ×3 (05:16→20:49)
[2020-02-13 05:59] LABS: Magnesium 1.8 mg/dL (1.6-2.6); Phosphorus 1.5 mg/dL (2.3-4.7)
[2020-02-13] MEDS ORDERED: Potassium Phosphate 30 MMOL, Magnesium Sulfate 3 GM in Sodium Chloride 0.9% 250 ML 250 ML IVPB SCH (06:15)
[2020-02-13] MEDS ORDERED: Magnesium Sulfate 3 GM in Sodium Chloride 0.9% 250 ML 250 ML IVPB SCH (06:15)
[2020-02-13 07:59] LABS: Actual Bicarbonate (HCO3a) 21.3 mEq/L (22-28); CO2 Tension 27.2 mmHg (35.0-45.0); Calcium, Ionized 1.07 mmol/L (1.12-1.30); Carboxyhemoglobin (COHb) 0.7 gm% (0.0-3.0); Hemoglobin (Hb) 9.6 g/dL (12.0-16.0); O2 Tension (PaO2), arterial 122.2 mmHg (> 80.0); Potassium - ABG Lab 3.21 mmol/L (3.70-5.30); pH, Arterial 7.51 (7.35-7.45)
[2020-02-13 08:00] LABS: Puncture Site LINE
[2020-02-13] MEDS: Pantoprazole 40 MG VIAL IVP SCH (08:02)
[2020-02-13] MEDS ORDERED: Albumin 25% 25 GM/100 ML BOT IVPB SCH (08:55)
[2020-02-13] MEDS ORDERED: Furosemide 20 MG/2 ML VIAL SLOW IVP SCH (09:00)
[2020-02-13] MEDS: Enoxaparin Sodium 40 MG/0.4 ML SYRINGE SC SCH (09:35)
--- NOTE | 2020-02-13 12:51 | PDOC.PALCO ---
Palliative Care Consult - Consult Details Requesting Physician: Dr Sarah Reason for Consult: goals of care, assistance with communication prognosis/ disease - Pertinent HPI 64 year old female who was discharged home 02/03 with hospice after being diagnosed with malignant sigmoid colon cancer with T4 lesions to small bowel and metastasis to the liver, laparotomy and colon resection. Has been home with hospice until 02/08 when she presented to the emergency room after her wound had eviscerated 2 days prior. Taken to to the OR for closure. Admitted to CCU and currently intubated. Hope is to successfully wean from vent, and transition back home with hospice care. - Pertinent PMH HTN - Social History Smoking Status: Current every day smoker Smoking: cigarettes Alcohol Use: daily Drug Use History: none Living Situation: - Medications MAR Reviewed: Yes - Allergies Allergies/Adverse Reactions: Allergies Allergy/AdvReac Type Severity Reaction Status Date / Time No Known Allergies Allergy Verified 02/09/20 20:19 - Subjective Intubated, wound vac over abdominal wound. Colostomy with adequate output. - ROS Non Response: due to endotracheal tube, due to mental status - Objective Vital Signs: Vital Signs - Most Recent Temp Pulse Resp BP Pulse Ox 98.6 F 93 12 153/58 H 99 02/13/20 11:00 02/13/20 10:50 02/13/20 11:56 02/13/20 10:50 02/13/20 08:00 Palliative Performance Scale: 30 - Physical Exam Constitutional: cachectic, encephalitic, ill appearing HEENT: moist MMs Respiratory: clear to auscultation bilateral Deviation from normal: mechanical ventilation Cardiovascular: RRR Deviation from normal: colostomy Genitourinary: bruce catheter Musculoskeletal: no cyanosis, no edema, diffuse muscle atrophy Skin: cap refill <2 seconds, fragile Deviation from normal: abdominal wound Deviation from normal: encephalopathic - Problem List (1) Malnutrition Code(s): E46 - UNSPECIFIED PROTEIN-CALORIE MALNUTRITION Current Visit: No Status: Acute (2) Metastatic adenocarcinoma Code(s): C79.9 - SECONDARY MALIGNANT NEOPLASM OF UNSPECIFIED SITE Current Visit: No Status: Acute (3) Palliative care encounter Code(s): Z51.5 - ENCOUNTER FOR PALLIATIVE CARE Current Visit: No Status: Acute (4) Physical deconditioning Code(s): R53.81 - OTHER MALAISE Current Visit: No Status: Acute - Plan/Recommendations Plan: Hopeful for successful extubation, and transition back to hospice in the home setting. Hopeful for post extubation to discuss transitioning MPOA to patient sister Abbie as she has been the primary decision maker. with difficulty understanding the magnitude illness and poor prognosis. Palliative Care will continue to support and provide education in relation to disease process and trajectory. Aida Randolph RN has communicated with [facility] Refer to Aida Randolph RNgalley hand notes [50] minutes spent on this encounter with >50% of the time in counseling and coordination of care. Thank you for this very appropriate consult.
--- NOTE | 2020-02-13 14:48 | PRG ---
DATE OF SERVICE: 02/13/2020 SUBJECTIVE: Ms. Almanzar is a 64-year-old woman who recently diagnosed with stage IV metastatic adenocarcinoma of the colon with small bowel and liver metastasis. The patient is postoperative day #4, status post exploratory laparotomy, abdominal washout, temporary abdominal closure with wound VAC, postoperative day #1 status post second-look laparotomy, abdominal washout, primary small bowel anastomosis, and the placement of wound VAC. She remains on mechanical ventilator support. She is on no vasopressor or inotropic support. Urinary output is adequate for this patient's age and weight. OBJECTIVE: VITAL SIGNS: This morning include blood pressure 150/52, pulse 88, respiratory rate is 14, maximum temperature in last 24 hours is 99.2 degrees Fahrenheit, and oxygen saturation is 100% on FiO2 of 30% on mechanical ventilator support. HEENT: Reveals bilateral scleral edema and icterus. NECK: She has no jugular venous distention noted. HEART: Reveals a regular rate and rhythm. LUNGS: Clear to auscultation bilaterally. Breathing, regular and nonlabored. ABDOMEN: Soft and nondistended. Wound VAC remains in place. Colostomy is viable. No stool or gas output at the moment. NEUROLOGIC: Reveals no focal deficits present. LABORATORY FINDINGS: Today includes a CBC with 15,300 white blood cells, hemoglobin and hematocrit 9.5 and 28.4 respectively. Platelet count is 225,000. Metabolic profile includes sodium 140, potassium 3.3, chloride is 110, bicarb is 22, BUN 23, creatinine 0.95, glucose is 119, magnesium 1.8, phosphorus 1.5, AST and ALT 34 and 24 respectively. Total bilirubin is elevated at 2.6. Arterial blood gas; pH is 7.51, pCO2 is 27.2, PO2 of 122.2, base excess is -1.0, and ionized calcium is 1.07. IMPRESSION: 1. Postoperative day #1, status post second-look exploratory laparotomy and a primary small bowel anastomosis. 2. Acute respiratory failure. 3. Acute hypokalemia. 4. Acute hypomagnesemia. 5. Acute hypophosphatemia. 6. Severe chronic malnutrition. PLAN: 1. Correct abnormal electrolytes. 2. Continue with full mechanical ventilator support until the patient is hemodynamically stable, more alert and interactive. 3. Initiate Physical and Occupational Therapy. 4. The patient will be returned to the operating room tomorrow for another look laparotomy and possible abdominal closure. The above findings and plan will be discussed with the patient's by telephone. Total critical care time is 45 minutes. Job ID: [id number]
--- NOTE | 2020-02-13 17:05 | PRG ---
DATE OF SERVICE: 02/13/2020 Her heart rates in the 90s, blood pressure 130/65, respiratory rate 16. Lungs, heart, and abdomen are essentially unchanged. White count 15.3, hemoglobin 9.5, platelets 225. Sodium 140, potassium 3.3, chloride 110, bicarb 22, BUN 23, creatinine 0.95. She is tentatively scheduled for another abdominal washout procedure tomorrow. It is my understanding. Since Dr. Sarah is back and experienced with the Critical Care, we will sign off. Job ID: [id number]
[2020-02-13] MEDS: Sodium Chloride 0.9% 1,000 ML IV SCH (19:41)
[2020-02-13] MEDS ORDERED: Morphine 4 MG/ML VIAL SLOW IVP SCH (20:45)
--- NOTE | 2020-02-13 22:50 | PRG ---
DATE OF SERVICE: 02/13/2020 SUBJECTIVE: This is a 64-year-old lady who was recently diagnosed with stage IV metastatic adenocarcinoma of the colon with small bowel and liver metastases. The patient is postop day #4, status post exploratory laparotomy, abdominal washout, temporary abdominal closure with wound VAC, postop day #1 status post second- look laparotomy, abdominal washout, primary small bowel anastomosis, and the placement of a wound VAC. The patient was seen during evening rounds in the critical care unit. The patient remains on mechanical ventilator support with CPAP. The patient currently appears restless and attempts to follow some simple commands. When asked if she is having pain, the patient nods head yes. The patient is currently on fentanyl drip at 40 mcg. The patient has had adequate urinary output. The patient's abdominal wound VAC appears to be working properly. The patient has a small amount of brown formed stool in her colostomy with also liquid and mucus. The patient's ostomy site is viable and pink. OBJECTIVE: VITAL SIGNS: Pulse 88, blood pressure 136/69, respirations 19, SpO2 100% on 30% FiO2. Temperature 99.2. GENERAL: Ill-appearing middle aged female on mechanical ventilator, anxious. RESPIRATORY: Lungs are clear bilateral, no wheezing, rales or rhonchi. CARDIAC: Regular rate. Regular rhythm. No murmurs. ABDOMEN: Soft, nondistended. EXTREMITIES: Generalized edema in all extremities, distal pulses 2+ in all extremities. IMPRESSION: 1. On postop day #1, status post second-look exploratory laparotomy and a primary small bowel anastomosis. 2. Acute respiratory failure. 3. Acute hypokalemia and hypomagnesemia. 4. Acute hypophosphatemia. 5. Severe chronic malnutrition. PLAN: Continue supportive care. Continue mechanical ventilator support. Continue sedation and pain control. Dr. Sarah plans to take the patient back to the operating room tomorrow for another look laparotomy and possible abdominal closure. Continue to monitor I's and O' s. Job ID: [id number] MTDD
[2020-02-13] MEDS: POTASSIUM CHLORIDE IV SCH (23:43)
[2020-02-13] MEDS: [UNRECOGNIZED DRUG - OTHER] IV SCH (23:43)
[2020-02-13] MEDS: SODIUM ACETATE IV SCH (23:43)
[2020-02-14] MEDS: Propofol 1,000 MG/100 ML VIAL IV PRN ×4 (00:25→22:13)
[2020-02-14] MEDS: fentaNYL Citrate/PF 2,000 MCG in Sodium Chloride 0.9% 60 ML IV SCH ×2 (03:05→22:06)
[2020-02-14 03:27] LABS: #Basophils 0.1 thou/uL (0.0-0.2); #Eosinphils 0.2 thou/uL (0.0-0.7); #Lymphocytes 1.5 thou/uL (1.20-3.40); #Monocytes 1.5 thou/uL (0.11-0.59); #Neutrophils 8.9 thou/uL (1.40-6.50); %Basophils 0.5 % (0.0-1.0); %Eosinophils 1.3 % (0.0-10.0); %Lymphocytes 12.4 % (21.0-51.0); %Monocytes 12.3 % (0.0-10.0); %Neutrophils 73.5 % (42.0-75.0); Hemoglobin 7.4 g/dL (12.0-16.0); Mean Corpuscular HGB CONC 33.6 g/dL (32.0-36.0); Mean Corpuscular Hemoglobin 29.5 pg (27.0-31.0); Mean Platelet Volume 7.4 fL (7.4-10.4); Platelet Count 170 thou/uL (130-400); RBC Distribution Width 20.4 % (11.5-14.5); White Blood Cell (WBC) Count 12.1 thou/uL (4.8-10.8)
[2020-02-14 03:55] LABS: Anion Gap 12 mmol/L (10-20); BUN (Urea Nitrogen) 23 mg/dL (9.8-20.1); Calc. Creatinine Clearance 102 mL/min (70-130); Calcium 7.5 mg/dL (7.8-10.44); Carbon Dioxide 24 mmol/L (23-31); Chloride 110 mmol/L (98-107); Estimated GFR-MDRD Greater than 90; Glucose 103 mg/dL (80-115); Phosphorus 1.9 mg/dL (2.3-4.7); Potassium 2.9 mmol/L (3.5-5.1); Sodium 143 mmol/L (136-145)
[2020-02-14] MEDS ORDERED: Potassium Phosphate 30 MMOL in Sodium Chloride 0.9% 500 ML IVPB SCH (04:15)
[2020-02-14] MEDS: Piperacillin/Tazobactam 4.5 GM in Sodium Chloride 0.9% 100 ML IVPB SCH ×3 (05:23→22:06)
[2020-02-14 07:24] LABS: Actual Bicarbonate (HCO3a) 24.8 mEq/L (22-28); Base Excess (BEa) 1.8 mEq/L (-2.0 to +3.0); CO2 Tension 31.6 mmHg (35.0-45.0); Calcium, Ionized 1.04 mmol/L (1.12-1.30); Hemoglobin (Hb) 7.5 g/dL (12.0-16.0); O2 Tension (PaO2), arterial 133.3 mmHg (> 80.0); Potassium - ABG Lab 3.12 mmol/L (3.70-5.30); pH, Arterial 7.51 (7.35-7.45)
[2020-02-14 07:26] LABS: Puncture Site LINE
[2020-02-14] MEDS ORDERED: Calcium Chloride 13.6 MEQ in Sodium Chloride 0.9% 100 ML IVPB SCH (08:00)
[2020-02-14] MEDS ORDERED: Calcium Chloride 1 GM/10 ML Abboject SYRINGE IVP SCH (08:00)
--- NOTE | 2020-02-14 08:04 | RAD ---
Exam: Chest one view HISTORY:Respiratory distress. Ventilated patient. Comparison: 02/09/2020 FINDINGS: Lines and tubes: Stable endotracheal tube, nasogastric tube and right-sided subclavian vascular misa ter. Cardiac silhouette:Mild enlarged cardiac silhouette Aorta: Unremarkable Pulmonary vessels: Mildly prominent Costophrenic angles: Bilateral pleural effusions LUNGS: Scattered bibasilar interstitial and alveolar opacities. Additional bilateral perihilar opacit ies are noted. Pneumothorax: None Osseous abnormalities: None IMPRESSION: 1. Worsening pleural and parenchymal changes. Continued surveillance is recommended.
[2020-02-14] MEDS: Pantoprazole 40 MG VIAL IVP SCH (08:25)
[2020-02-14] MEDS ORDERED: Albumin 25% 25 GM/100 ML BOT IVPB SCH (08:41)
[2020-02-14] MEDS ORDERED: Furosemide 20 MG/2 ML VIAL SLOW IVP SCH (08:45)
[2020-02-14] MEDS ORDERED: Rocuronium Bromide 10 MG/ML (10ML VIAL) ONE (09:40)
[2020-02-14] MEDS ORDERED: PROPOFOL 200 MG/20 ML VIAL ONE (09:40)
--- NOTE | 2020-02-14 11:15 | PRG ---
DATE OF SERVICE: 02/14/2020 SUBJECTIVE: Ms. Almanzar is a 64-year-old woman with stage IV metastatic adenocarcinoma of the colon. The patient is status post Homa procedure with wedge liver biopsy, segmental small-bowel resection, and primary anastomosis. She is also postoperative day #5, status post exploratory laparotomy, abdominal washout, segmental small-bowel resection, and temporary abdominal closure, wound VAC. Postop day #2, status post second-look laparotomy, abdominal washout, and primary small-bowel anastomosis and wound VAC placement. She remains on mechanical ventilator support. Urinary output is adequate for the patient's age and weight. She remains on no vasopressor or inotropic support. OBJECTIVE: VITAL SIGNS: This morning include blood pressure 159/52, pulse 74, respiratory rate is 15, maximum temperature in last 24 hours is 99.2 degrees Fahrenheit, oxygen saturation 100% on FiO2 of 30%. HEENT: Reveals bilateral scleral edema present. NECK: No jugular venous distention noted. HEART: Reveals regular rate and rhythm. No murmurs or gallops auscultated. LUNGS: Clear to auscultation bilaterally. Breathing regular and nonlabored. ABDOMEN: Soft, moderately distended. Wound VAC remains in place with over 1 L of serous ascites. Colostomy is viable with minimum gas output, but no stool at this time. NEUROLOGIC: Reveals no focal deficits present. LABORATORY FINDINGS: Include a CBC with 12,100 white blood cells, hemoglobin and hematocrit 7.4 and 22.0 respectively, platelet count is 170,000. Metabolic profile; sodium 143, potassium 2.9, chloride is 110, bicarb is 24, BUN 23, creatinine 0.77, glucose 103, magnesium 2.0, phosphorus 1.9. IMPRESSION: 1. Postop day #5, status post exploratory laparotomy, segmental small-bowel resection, abdominal washout, and wound VAC. Postop day #2, status post exploratory laparotomy, primary small bowel anastomosis, abdominal washout, and wound VAC placement. 2. Acute respiratory failure, stable. 3. Acute hypokalemia. 4. Acute hypophosphatemia. 5. Severe chronic malnutrition. PLAN: 1. Continue with gentle diuresis. 2. Continue with mechanical ventilator support and begin ventilatory wean postoperatively if the patient remains hemodynamically stable. 3. The patient returns to operating room today for exploratory laparotomy, abdominal washout, and possible abdominal closure. 4. We will correct abnormal electrolytes. 5. Continue with parenteral nutritional supplementation. Above findings and plan will be discussed with the patient's by telephone conversation. Total critical care time is 35 minutes. Job ID: [id number]
[2020-02-14] MEDS: Enoxaparin Sodium 40 MG/0.4 ML SYRINGE SC SCH (12:08)
[2020-02-14] MEDS ORDERED: Dextrose 5% in Water 1,000 ML IV PRN (12:18)
[2020-02-14] MEDS ORDERED: Dextrose 50% Abboject 50 ML SYRINGE SLOW IVP PRN (12:18)
[2020-02-14] MEDS ORDERED: Insulin Regular 300 UNITS/3 ML VIAL SC PRN (12:18)
[2020-02-14] MEDS ORDERED: Dextrose 50% Abboject 50 ML SYRINGE ONE (12:19)
[2020-02-14] MEDS ORDERED: Fentanyl 100 MCG/2 ML VIAL ONE (13:24)
[2020-02-14] MEDS ORDERED: [UNRECOGNIZED DRUG - OTHER] IV SCH ×2 (13:45→22:00)
[2020-02-14] MEDS ORDERED: POTASSIUM ACETATE IV SCH ×2 (13:45→22:00)
[2020-02-14] MEDS ORDERED: SODIUM ACETATE IV SCH ×2 (13:45→22:00)
[2020-02-14] MEDS: hydrALAZINE 20 MG/ML VIAL SLOW IVP PRN (17:11)
[2020-02-14 17:40] LABS: Hemoglobin 8.3 g/dL (12.0-16.0); Mean Corpuscular HGB CONC 33.2 g/dL (32.0-36.0); Mean Corpuscular Hemoglobin 29.8 pg (27.0-31.0); Mean Corpuscular Volume 89.9 fL (78.0-98.0); Mean Platelet Volume 8.3 fL (7.4-10.4); Platelet Count 184 thou/uL (130-400); RBC Distribution Width 20.5 % (11.5-14.5); Red Blood Cell (RBC) Count 2.78 mill/uL (4.20-5.40); White Blood Cell (WBC) Count 15.4 thou/uL (4.8-10.8)
[2020-02-14] MEDS: Sodium Chloride 0.9% 1,000 ML IV SCH (17:45)
[2020-02-14 17:52] LABS: INR-International Normal Ratio 1.2; Prothrombin Time 15.2 sec (12.0-14.7)
[2020-02-14 18:02] LABS: Anion Gap 12 mmol/L (10-20); BUN (Urea Nitrogen) 20 mg/dL (9.8-20.1); Calc. Creatinine Clearance 109 mL/min (70-130); Calcium 7.9 mg/dL (7.8-10.44); Carbon Dioxide 24 mmol/L (23-31); Chloride 109 mmol/L (98-107); Estimated GFR-MDRD Greater than 90; Glucose 102 mg/dL (80-115); Magnesium 1.8 mg/dL (1.6-2.6); Phosphorus 3.3 mg/dL (2.3-4.7); Potassium 3.2 mmol/L (3.5-5.1); Sodium 142 mmol/L (136-145)
[2020-02-14 18:08] LABS: Anisocytosis SLIGHT = 6-15 cells (100X) (0-5/hpf); Band 1 % (5-11); Eosinophils 1 % (0-10); Lymphocytes 7 % (21-51); MDiff Complete? YES; Monocytes 9 % (0-10); Neutrophil 80 % (42-75); Platelet Morphology Comment Appears Adequate; Polychromasia SLIGHT = 2-3 cells (100X) (0-2/hpf)
[2020-02-14] MEDS ORDERED: Magnesium 2 GM/50 ML 2 GM in Premix Bag 1 BAG IVPB SCH (18:30)
[2020-02-14] MEDS ORDERED: Potassium Phosphate 30 MMOL in Sodium Chloride 0.9% 250 ML 250 ML IVPB SCH (18:30)
[2020-02-14] MEDS: Famotidine/PF 20 mg/2ml Vial SLOW IVP SCH (22:06)
[2020-02-14] MEDS: [UNRECOGNIZED DRUG - OTHER] IV SCH (22:08)
[2020-02-14] MEDS: POTASSIUM ACETATE IV SCH (22:08)
[2020-02-14] MEDS: SODIUM ACETATE IV SCH (22:08)
[2020-02-14] MEDS ORDERED: Sterile Water 10 ML VIAL IVP SCH (22:30)
[2020-02-14] MEDS ORDERED: Activase 2 MG VIAL CATH SCH ×2 (22:30→23:00)
--- NOTE | 2020-02-14 22:59 | PRG ---
DATE OF SERVICE: 02/14/2020 SUBJECTIVE: The patient was seen in the critical care unit on the evening round, currently on full mechanical ventilation and sedated with propofol and fentanyl. The patient does become mildly agitated with assessment. The patient was taken to the OR earlier today for exploratory laparotomy, abdominal washout and abdominal closure. The patient was also gently diuresed earlier today. The patient continues to have GoLYTELY at 10 mL an hour. The patient does not have any output in her ostomy at this time. The patient's ostomy site is viable. Urinary output remains adequate. OBJECTIVE: VITAL SIGNS: Temperature 98.0, pulse 92, respirations 18, blood pressure 122/74, SpO2 100% on 30% FiO2. GENERAL: Ill-appearing middle aged female, on full mechanical ventilation and sedated. RESPIRATORY: Good inspiratory and expiratory effort, bilateral breath sounds clear. No wheezing rales or rhonchi. CARDIAC: Regular rate. Regular rhythm. ABDOMEN: Soft, moderately distended, no active bowel sounds, wound VAC placed, colostomy is viable. NEUROLOGIC: Sedated. EXTREMITIES: Moves all extremities, diffuse edema in all extremities, distal pulses 2+ in all extremities. IMPRESSION: 1. Postoperative day #2 status post exploratory laparotomy, primary small bowel anastomosis and abdominal washout, wound vacuum assisted closure device placement. 2. Postoperative abdominal washout, closure of fascia and wound vacuum assisted closure device placement. 3. Acute hypokalemia. 4. Acute hypophosphatemia. 5. Acute respiratory failure, stable. 6. Severe chronic malnutrition. PLAN: Continue supportive care. Full mechanical ventilator support. We will begin ventilator wean in the morning. Repeat labs in the morning and replace electrolytes as needed. Continue parental nutritional support. Job ID: [id number]
--- NOTE | 2020-02-15 00:24 | OP ---
DATE OF PROCEDURE: 02/14/2020 PREOPERATIVE DIAGNOSES: 1. Status post exploratory laparotomy. 2. Open abdomen. POSTOPERATIVE DIAGNOSES: 1. Status post exploratory laparotomy. 2. Open abdomen. OPERATIONS PERFORMED: 1. Exploratory laparotomy. 2. Abdominal washout. 3. Fascia reconstruction with 16 x 20 cm Strattice biologic mesh. ANESTHESIA: General endotracheal. ESTIMATED BLOOD LOSS: 20 mL. FLUIDS GIVEN: 300 mL of crystalloids. COUNTS: Sponge and instrument counts were verified as correct x2. COMPLICATIONS: None apparent at the time of operation. 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 The patient is status post Homa procedure. She developed wound adhesions due to severe chronic malnutrition. She is brought to the operating room for exploration. The abdomen was temporary closed using wound VAC. The patient returns to operating room today for abdominal washout and possible closure. Findings are consistent with no active intraperitoneal purulence. The two small bowel anastomoses remain intact. A large amount of hard stool remain in the colon. DESCRIPTION OF PROCEDURE: Informed consent was obtained from the patient's . The patient was brought to the operating room and placed in supine position. Following general anesthesia, previous Simmons catheter was placed to bedside drain. The abdomen was attended to. The external wound VAC dressing and colostomy appliance were removed. The colostomy site was draped off using a 1010 sterile drape. The abdomen was then sterilely prepped and draped in usual fashion. The internal wound VAC dressing was removed and peritoneal cavity was entered. Small bowel was run from ligament of Treitz down to terminal ileum. The two interval small bowel anastomoses were examined. These remain intact and patent. Large amount of stool remained in the intact colon and quite hard. Finding no other pathology, exploration was terminated. All sponges and instruments were reported as correct x2. We decided to reconstruct the fascia as it will be impossible to reapproximate the fascia at the midline. To achieve this, a 16 x 20 cm Strattice biologic mesh was brought into the operative field and sutured circumferentially to [place] fascia using interrupted sutures of 0 Prolene with 2 cm overlap of the [place] fascia over the Strattice. Two pieces of Adaptic were placed over this. A wound VAC sponge was then placed over the fascial reconstruction. External wound VAC dressing was drawn over the entire abdomen and connected to vacuum-assisted device with good suction. Ostomy appliance was replaced. The patient tolerated this operation without any apparent complication and returned to the recovery room in satisfactory condition. Job ID: [id number]
[2020-02-15] MEDS: Propofol 1,000 MG/100 ML VIAL IV PRN ×4 (03:00→20:30)
[2020-02-15 04:43] LABS: Band 6 % (5-11); Eosinophils 3 % (0-10); Lymphocytes 16 % (21-51); MDiff Complete? YES; Mean Corpuscular HGB CONC 32.4 g/dL (32.0-36.0); Mean Corpuscular Hemoglobin 29.3 pg (27.0-31.0); Mean Corpuscular Volume 90.5 fL (78.0-98.0); Mean Platelet Volume 8.4 fL (7.4-10.4); Metamyelocyte 1 % (0-0); Monocytes 5 % (0-10); Neutrophil 69 % (42-75); Platelet Count 162 thou/uL (130-400); Platelet Morphology Comment Appears Adequate; RBC Distribution Width 20.7 % (11.5-14.5); White Blood Cell (WBC) Count 12.2 thou/uL (4.8-10.8)
[2020-02-15 04:51] LABS: Anion Gap 10 mmol/L (10-20); BUN (Urea Nitrogen) 18 mg/dL (9.8-20.1); Calc. Creatinine Clearance 114 mL/min (70-130); Calcium 7.6 mg/dL (7.8-10.44); Carbon Dioxide 26 mmol/L (23-31); Chloride 109 mmol/L (98-107); Estimated GFR-MDRD Greater than 90; Glucose 119 mg/dL (80-115); Magnesium 2.2 mg/dL (1.6-2.6); Phosphorus 3.8 mg/dL (2.3-4.7); Potassium 3.6 mmol/L (3.5-5.1); Sodium 141 mmol/L (136-145)
[2020-02-15] MEDS: Piperacillin/Tazobactam 4.5 GM in Sodium Chloride 0.9% 100 ML IVPB SCH ×3 (06:56→21:19)
[2020-02-15] MEDS ORDERED: Potassium Phosphate 15 MMOL in Sodium Chloride 0.9% 250 ML 250 ML IVPB SCH (07:15)
--- NOTE | 2020-02-15 08:00 | RAD ---
PORTABLE CHEST: HISTORY: CCU followup. On respirator. COMPARISON: 02/14/2020. FINDINGS: ET tube, NG tube, and central line are unchanged. Bibasilar opacification consistent with bilateral effusions and bibasilar atelectasis again noted. L ungs appear better aerated today. Vascular markings are normal. Left basilar process is again noted obscuring the left hemidiaphragm. IMPRESSION: Small effusions and bibasilar atelectasis or infiltrates, more pronounced in the left base. Upper mirtha ng wagner appear better aerated today. POS: AGW
[2020-02-15] MEDS ORDERED: Albumin 25% 25 GM/100 ML BOT IVPB SCH ×2 (08:22→21:00)
[2020-02-15] MEDS ORDERED: Furosemide 20 MG/2 ML VIAL SLOW IVP SCH ×2 (08:30→21:00)
[2020-02-15] MEDS: Enoxaparin Sodium 40 MG/0.4 ML SYRINGE SC SCH (09:06)
[2020-02-15] MEDS: Famotidine/PF 20 mg/2ml Vial SLOW IVP SCH (09:07)
[2020-02-15] MEDS: Pantoprazole 40 MG VIAL IVP SCH ×2 (09:09→21:20)
--- NOTE | 2020-02-15 10:41 | PRG ---
DATE OF SERVICE: 02/15/2020 SUBJECTIVE: Ms. Almanzar is a 64-year-old woman, postop day #1, status post exploratory laparotomy and fascial reconstruction with biologic mesh and wound VAC application. The patient remains on mechanical ventilator support. She moves all extremities and follows commands. [place] Coma Scale is noted at E3-4 M6 V1T. She is on no vasopressor or inotropic support. OBJECTIVE: VITAL SIGNS: Include blood pressure is 144/83, pulse is 79, respiratory rate is 13, maximum temperature in last 24 hours is 98.6 degrees Fahrenheit, oxygen saturation is 100% on FiO2 of 30%. HEENT: Pupils remain with residual bilateral scleral edema. No scleral icterus is present. NECK: There is no jugular venous distention noted. HEART: Reveals regular rate and rhythm. LUNGS: Clear to auscultation bilaterally. Breathing, regular and nonlabored. ABDOMEN: Soft and nondistended. Colostomy is viable. No output at the moment. Nasogastric tube is in place with a moderate amount of bilious effluent. NEUROLOGIC: Reveals no focal deficits present. LABORATORY FINDINGS: Include a CBC with 12,200 white blood cells, hemoglobin and hematocrit are 7.0 and 21.7 respectively. The platelet count is 162,000. Metabolic profile; sodium is 141, potassium is 3.6, chloride is 109, bicarb is 26, BUN is 18, creatinine is 0.68, glucose is 119 magnesium is 2.2, and phosphorus is 3.8. IMPRESSION: 1. Postoperative day #1, status post exploratory laparotomy with fascial reconstruction and wound VAC applications. 2. Stage IV metastatic adenocarcinoma of the colon, status post sigmoidectomy, wedge liver biopsy, as well as segmental small bowel resection and primary anastomosis. 3. Acute respiratory failure, improving. 4. Acute hypokalemia. 5. Severe chronic malnutrition. PLAN: 1. Continue with full mechanical ventilator support and gentle diuresis. 2. We will initiate ventilator wean as the patient tolerates. 3. Correct abnormal electrolytes. 4. Continue with parenteral nutritional supplementation until return of bowel function. 5. Above findings and plan will be discussed with the patient's by phone. TIME SPENT: Total critical care time is 40 minutes. Job ID: [id number]
[2020-02-15] MEDS: fentaNYL Citrate/PF 2,000 MCG in Sodium Chloride 0.9% 60 ML IV SCH (12:54)
[2020-02-15] MEDS: Sodium Chloride 0.9% 1,000 ML IV SCH (13:03)
[2020-02-15] MEDS: [UNRECOGNIZED DRUG - OTHER] IV SCH (22:18)
[2020-02-15] MEDS: SODIUM ACETATE IV SCH (22:18)
[2020-02-15] MEDS: POTASSIUM ACETATE IV SCH (22:18)
--- NOTE | 2020-02-16 00:50 | PRG ---
DATE OF SERVICE: 02/15/2020 SUBJECTIVE: The patient remains in the critical care unit on full mechanical ventilatory support. The patient attempts to open eyes, but does not follow any commands. She is on no vasopressor or inotropic support. Urinary output remains adequate. The patient does have some blood tinged output from her NG tube, approximately 300 mL. OBJECTIVE: VITAL SIGNS: Blood pressure 114/60, temperature 98.6, SpO2 of 100% on 30% FiO2, respirations 22, and heart rate 81. LUNGS: Clear bilaterally. No wheezing, rales, or rhonchi. Equal chest rise and fall. CARDIAC: Regular rate, regular rhythm. ABDOMEN: Soft, nondistended. Colostomy is viable. No output or gas present. EXTREMITIES: Moves all extremities. Edema present in all extremities. IMPRESSION: 1. Postop day #1 status post exploratory laparotomy with fascial reconstruction and wound VAC applications. 2. Stage IV metastatic adenocarcinoma of the colon, status post sigmoidectomy, wedge liver biopsy, as well as segmental small-bowel resection and primary anastomosis. 3. Acute respiratory failure. 4. Hypokalemia. 5. Severe chronic malnutrition. PLAN: 1. Continue full mechanical ventilator support and gentle diuresis. 2. Ventilator wean as patient tolerates. Continue Precedex. Continue parenteral nutritional supplementation until return of bowel function. Continue to monitor urinary output and return of bowel function. Job ID: [id number]
[2020-02-16 04:32] LABS: Anion Gap 14 mmol/L (10-20); BUN (Urea Nitrogen) 17 mg/dL (9.8-20.1); Calc. Creatinine Clearance 114 mL/min (70-130); Carbon Dioxide 25 mmol/L (23-31); Chloride 109 mmol/L (98-107); Estimated GFR-MDRD Greater than 90; Glucose 111 mg/dL (80-115); Magnesium 1.9 mg/dL (1.6-2.6); Phosphorus 3.1 mg/dL (2.3-4.7); Potassium 3.8 mmol/L (3.5-5.1); Sodium 144 mmol/L (136-145)
[2020-02-16] MEDS: Piperacillin/Tazobactam 4.5 GM in Sodium Chloride 0.9% 100 ML IVPB SCH ×3 (05:20→22:14)
[2020-02-16 05:42] LABS: Hemoglobin 7.8 g/dL (12.0-16.0); Mean Corpuscular HGB CONC 33.6 g/dL (32.0-36.0); Mean Corpuscular Hemoglobin 30.1 pg (27.0-31.0); Mean Corpuscular Volume 89.5 fL (78.0-98.0); Platelet Count 144 thou/uL (130-400); RBC Distribution Width 19.2 % (11.5-14.5); Red Blood Cell (RBC) Count 2.58 mill/uL (4.20-5.40); White Blood Cell (WBC) Count 9.5 thou/uL (4.8-10.8)
[2020-02-16 06:15] LABS: Band 2 % (5-11); Eosinophils 2 % (0-10); Lymphocytes 12 % (21-51); MDiff Complete? YES; Monocytes 4 % (0-10); Neutrophil 80 % (42-75)
[2020-02-16 07:15] LABS: ALV-art Gradient 38.175 (0-20); Actual Bicarbonate (HCO3a) 23.8 mEq/L (22-28); Base Excess (BEa) 0.7 mEq/L (-2.0 to +3.0); CO2 Tension 31.3 mmHg (35.0-45.0); Calcium, Ionized 1.04 mmol/L (1.12-1.30); Hemoglobin (Hb) 7.8 g/dL (12.0-16.0); O2 Tension (PaO2), arterial 136.6 mmHg (> 80.0); Potassium - ABG Lab 3.78 mmol/L (3.70-5.30); Puncture Site ALINE
[2020-02-16] MEDS ORDERED: Calcium Chloride 1 GM/10 ML Abboject SYRINGE IVP SCH (07:45)
[2020-02-16] MEDS ORDERED: Magnesium 2 GM/50 ML 2 GM in Premix Bag 1 BAG IVPB SCH (07:45)
[2020-02-16] MEDS ORDERED: Potassium Phosphate 15 MMOL in Sodium Chloride 0.9% 250 ML 250 ML IVPB SCH (07:45)
[2020-02-16] MEDS: Enoxaparin Sodium 40 MG/0.4 ML SYRINGE SC SCH (08:27)
[2020-02-16] MEDS: Pantoprazole 40 MG VIAL IVP SCH ×2 (08:27→20:06)
[2020-02-16] MEDS ORDERED: Albumin 25% 25 GM/100 ML BOT IVPB ONE (08:47)
[2020-02-16] MEDS ORDERED: Morphine 2 MG/ML SYRINGE SLOW IVP PRN (08:47)
[2020-02-16] MEDS ORDERED: Furosemide 20 MG/2 ML VIAL SLOW IVP SCH (09:00)
--- NOTE | 2020-02-16 10:06 | RAD ---
CHEST 1 VIEW: Date: 02/16/2020 HISTORY: Pleural effusion. Respiratory distress. FINDINGS: Endotracheal and NG tubes are in satisfactory position. Right central line is unchanged. The pleural and parenchymal changes in the lung bases have not improved, perhaps some slight worsening to the rig ht lower lobe parenchymal changes. IMPRESSION: Slight worsening to some of the right lower lobe parenchymal lung changes. POS: MIGDALIA
--- NOTE | 2020-02-16 11:29 | PRG ---
DATE OF SERVICE: 02/16/2020 SUBJECTIVE: Ms. Almanzar is a 64-year-old woman, who is postoperative day #2, status post exploratory laparotomy and fascia reconstruction with biologic mesh. She was recently diagnosed with stage 4 metastatic adenocarcinoma of the sigmoid colon, which required a Homa's procedure with wedge liver biopsy and segmental small bowel resection with primary anastomosis. She remains on mechanical ventilator support. Urinary output is adequate for the patient's age and weight. The patient awakens to voice. Moves all extremities and following commands. OBJECTIVE: VITAL SIGNS: This morning include blood pressure 135/76, pulse 82, respiratory rate is 18, maximum temperature in last 24 hours is 98.7 degrees Fahrenheit, and oxygen saturation is 100% on FiO2 of 30% on mechanical ventilator support. HEENT: Pupils are equal, round, and reactive to light bilaterally. The scleral edema is resolving. NECK: She has no jugular venous distention noted. HEART: Reveals regular rate and rhythm. No murmurs or gallops auscultated. LUNGS: Clear to auscultation bilaterally. Breathing, regular and unlabored. ABDOMEN: Soft and nondistended. Ostomy remains viable, but no output of gas or stool. Wound VAC drain returns 100 mL of serous fluid in the last 24 hours. NEUROLOGIC: Reveals no focal deficits present. LABORATORY FINDINGS: Today include a CBC with 9500 white blood cells, hemoglobin and hematocrit 7.8 and 23.1 respectively. Platelet count is 144,000. Metabolic profile; sodium is 144, potassium is 3.8, chloride is 109, bicarb is 25, BUN is 17, creatinine is 0.70, glucose is 111, magnesium is 1.9, and phosphorus is 3.1. Arterial blood gas; pH is 7.50, pCO2 is 31, pO2 is 137, oxygen saturation is 99%, and base excess is 0.7. Ionized calcium is 1.04. IMPRESSION: 1. Postop day #2 status post exploratory laparotomy with fascia reconstruction with biologic mesh. 2. History of metastatic adenocarcinoma of the colon. 3. Acute respiratory failure, improving. 4. Acute on chronic blood loss anemia, stable. 5. Acute hypocalcemia. 6. Acute hypokalemia. 7. Acute hypomagnesemia. PLAN: 1. Correct abnormal electrolytes. 2. The patient was weaned and extubated to nasal cannula oxygen. 3. Initiate physical and occupational therapy. Total critical care time is 35 minutes. Job ID: [id number]
--- NOTE | 2020-02-16 12:15 | RAD ---
Radiograph abdomen one view: DATE: 02/16/2020 Time: 12:02 PM HISTORY: Dobbhoff tube placement in 64-year-old female. FINDINGS: In the left upper quadrant, superior to the Dobbhoff feeding tuber, there is an approximately 2 x 0.5 cm elongated thin triangular density. Dobbhoff feeding tube distal tip is in the left upper quadrant inferior to this, in the expected region of the body of the stomach. Cholecystectomy clips i n the right upper quadrant. Left pleural effusion. IMPRESSION: 1. Small density in left upper quadrant of abdomen, questionable for dislodged tooth. 2. Dobbhoff feeding tube in mid gastric corpus.
[2020-02-16] MEDS ORDERED: GoLYTELY 4,000 ml Bottle PER TUBE PRN (12:27)
[2020-02-16] MEDS: Sodium Chloride 0.9% 1,000 ML IV SCH (12:44)
[2020-02-16] MEDS: Morphine 4 MG/ML VIAL SLOW IVP PRN ×4 (13:01→22:15)
[2020-02-16] MEDS: GoLYTELY 4,000 ml Bottle PER TUBE SCH (13:03)
--- NOTE | 2020-02-16 13:53 | PDOC.PALPN ---
Palliative Progress Note - Subjective Awake, alert. Accidentally pulled NG out, awaiting decision by Dr Sarah and team for replacing. - Objective Vital Signs: Vital Signs - Most Recent Temp Pulse Resp BP Pulse Ox 98.2 F 83 18 155/62 H 99 02/16/20 11:00 02/16/20 13:08 02/16/20 13:08 02/16/20 06:56 02/16/20 13:08 - Physical Exam Constitutional: cachectic, emaciated, ill appearing HEENT: EOMI, moist MMs Respiratory: no wheezing, unlabored breathing Cardiovascular: RRR Deviation from normal: Colostomy, wound vac. Musculoskeletal: no cyanosis, no clubbing Neurology: moves all 4 limbs, no focal deficits Skin: cap refill <2 seconds Deviation from normal: wound vac covering abdominal wound Psychiatric: A&O x 3, normal affect - Assessment (1) Malnutrition Code(s): E46 - UNSPECIFIED PROTEIN-CALORIE MALNUTRITION Current Visit: No Status: Acute (2) Metastatic adenocarcinoma Code(s): C79.9 - SECONDARY MALIGNANT NEOPLASM OF UNSPECIFIED SITE Current Visit: No Status: Acute (3) Palliative care encounter Code(s): Z51.5 - ENCOUNTER FOR PALLIATIVE CARE Current Visit: No Status: Acute (4) Physical deconditioning Code(s): R53.81 - OTHER MALAISE Current Visit: No Status: Acute - Plan Plan: MPOA completed by Palliative Care Team. Continue with supportive care. Readdress GOC /Patient hopeful to return to home setting and be with her and sister. Please also refer to Aida Randolph RN Notes in note section [20] minutes spent on this encounter with >50% of the time in counseling and coordination of care. - ROS Constitutional: weakness ENT: dry mouth, other (Denies congestion) Respiratory: other (Denies cough) Cardiology: other (denies chest pain, palpitations) Gastrointestinal: abdominal pain, bloating
[2020-02-16] MEDS: Morphine 2 MG/ML SYRINGE SLOW IVP PRN ×2 (15:56→18:27)
[2020-02-16] MEDS: SODIUM ACETATE IV SCH (22:13)
[2020-02-16] MEDS: [UNRECOGNIZED DRUG - OTHER] IV SCH (22:13)
[2020-02-16] MEDS: POTASSIUM ACETATE IV SCH (22:13)
[2020-02-16] MEDS: Metoprolol Tartrate 5 MG/5 ML VIAL IVP SCH (22:15)
[2020-02-17] MEDS: Morphine 4 MG/ML VIAL SLOW IVP PRN ×8 (01:10→21:41)
--- NOTE | 2020-02-17 01:28 | PRG ---
DATE OF SERVICE: 02/16/2020 SUBJECTIVE: The patient was seen in the critical care unit during evening rounds. The patient is postop day #2, status post exploratory laparotomy and fascia reconstruction with biologic mesh. The patient is currently awake, alert, in no distress. The patient was extubated earlier this morning. The patient has had no respiratory distress. The patient is getting morphine for abdominal pain. The patient continues to have no stool out of her colostomy, but her site is viable and pink. The patient is continuing to receive GoLYTELY via Dobbhoff. The patient's urinary output has been adequate. OBJECTIVE: VITAL SIGNS: Blood pressure 161/75, heart rate 103, respirations 16, SpO2 98% on room air. GENERAL: An ill-appearing middle aged female, awake, alert, in no distress. RESPIRATORY: Equal chest rise and fall, bilateral breath sounds clear. CARDIAC: Regular rate and regular rhythm. ABDOMEN: Soft, nondistended, ostomy is viable. Wound VAC drain returns serous fluid. NEUROLOGIC: No focal deficit, GCS 15. IMPRESSION: 1. Postoperative day #2, status post exploratory laparotomy with fascia reconstruction with biologic mesh. 2. History of metastatic adenocarcinoma of the colon. 3. Acute respiratory failure, improved. 4. Acute on chronic blood loss anemia, stable. PLAN: 1. Continue to monitor urinary output. 2. We will start the patient on Lopressor as the patient has been hypertensive. 3. Physical and occupational therapy. 4. Pain management. 5. The plan was discussed with the patient who agrees. Job ID: [id number]
[2020-02-17] MEDS: Metoprolol Tartrate 5 MG/5 ML VIAL IVP SCH ×4 (03:11→19:44)
[2020-02-17] MEDS: Sodium Chloride 0.9% 1,000 ML IV SCH (03:13)
[2020-02-17 03:51] LABS: Band 1 % (5-11); Eosinophils 1 % (0-10); Hemoglobin 7.7 g/dL (12.0-16.0); Lymphocytes 10 % (21-51); MDiff Complete? YES; Mean Corpuscular Hemoglobin 29.7 pg (27.0-31.0); Mean Corpuscular Volume 90.1 fL (78.0-98.0); Mean Platelet Volume 9.1 fL (7.4-10.4); Monocytes 7 % (0-10); Neutrophil 80 % (42-75); Platelet Count 149 thou/uL (130-400); RBC Distribution Width 19.4 % (11.5-14.5); Red Blood Cell (RBC) Count 2.59 mill/uL (4.20-5.40); White Blood Cell (WBC) Count 11.6 thou/uL (4.8-10.8)
[2020-02-17 03:56] LABS: Anion Gap 13 mmol/L (10-20); BUN (Urea Nitrogen) 17 mg/dL (9.8-20.1); Calc. Creatinine Clearance 113 mL/min (70-130); Calcium 8.1 mg/dL (7.8-10.44); Carbon Dioxide 23 mmol/L (23-31); Chloride 109 mmol/L (98-107); Estimated GFR-MDRD Greater than 90; Glucose 109 mg/dL (80-115); Phosphorus 2.8 mg/dL (2.3-4.7); Potassium 3.8 mmol/L (3.5-5.1); Sodium 141 mmol/L (136-145)
[2020-02-17] MEDS: Piperacillin/Tazobactam 4.5 GM in Sodium Chloride 0.9% 100 ML IVPB SCH ×3 (06:05→21:40)
[2020-02-17] MEDS: hydrALAZINE 20 MG/ML VIAL SLOW IVP PRN ×2 (06:06→16:16)
[2020-02-17] MEDS ORDERED: Potassium Phosphate 15 MMOL in Sodium Chloride 0.9% 250 ML 250 ML IVPB SCH (08:00)
[2020-02-17] MEDS: Enoxaparin Sodium 40 MG/0.4 ML SYRINGE SC SCH (08:41)
[2020-02-17] MEDS: Pantoprazole 40 MG VIAL IVP SCH ×2 (08:42→19:47)
[2020-02-17] MEDS: Morphine 2 MG/ML SYRINGE SLOW IVP PRN (08:44)
[2020-02-17] MEDS: GoLYTELY 4,000 ml Bottle PER TUBE SCH (12:12)
--- NOTE | 2020-02-17 16:32 | PRG ---
DATE OF SERVICE: 02/17/2020 SUBJECTIVE: The patient was seen this morning in the CCU. She is postoperative day #3 status post fascial reconstruction, and she is post extubation day 1. She had no acute events overnight. It does appear that she has developed an ileus. She complains of a lot of bloating and abdominal tightness. NG tube was placed, and Dobbhoff was removed. OBJECTIVE: VITAL SIGNS: Temperature 99, pulse 94, respirations 22, oxygen saturation 98% on room air, and blood pressure 157/118. GENERAL: Frail female, lying in bed with no signs of acute distress. PULMONARY: Equal chest rise and fall. Clear breath sounds bilaterally. No signs of acute respiratory distress. CARDIAC: Regular rate and rhythm. GI: Abdomen is soft, a little tighter than yesterday, but still soft, appropriately tender to palpation and mildly distended. Midline abdominal wound VAC was in place, and serosanguineous output was in canister. Ostomy was well perfused, and there was no output in the bag. EXTREMITIES: 2+ pulses in all extremities. Gross motor and sensation are intact. There is some moderate swelling to her extremities. NEURO: GCS is 15. LABORATORY FINDINGS: White count 11.6, hemoglobin 7.7, hematocrit 23.3, and platelets 149. Sodium 141, potassium 3.8, chloride 109, bicarb 23, BUN 17, creatinine 0.70, glucose 109, phosphorus 2.8, and magnesium 2.0. DIAGNOSTIC FINDINGS: There are no new diagnostic findings to report. ASSESSMENT: 1. Postop day 3 status post exploratory laparotomy with fascial reconstruction with biologic mesh. 2. History of mesenteric adenocarcinoma of the colon. 3. Acute respiratory failure, resolved. 4. Acute on chronic blood loss anemia, stable. 5. Acute hypophosphatemia. 6. Ileus. 7. Chronic severe malnutrition. 8. History of hypertension. PLAN: Continue current n.p.o. status. Continue TPN and normal saline. Continue IV antibiotics. Discontinue GoLYTELY. NG tube to low intermittent wall suction. The patient to be mobilized into a chair and work with Physical and Occupational Therapy. Replace electrolytes with potassium and phosphorus. The patient will be transferred from the ICU to the surgical nursing floor. This patient was discussed with Dr. Sarah before this dictation. Job ID: [id number] [facility]
[2020-02-17] MEDS: Ketorolac Tromethamine 30 MG/ML VIAL IVP SCH (19:44)
[2020-02-17] MEDS: SODIUM ACETATE IV SCH (22:11)
[2020-02-17] MEDS: POTASSIUM ACETATE IV SCH (22:11)
[2020-02-17] MEDS: [UNRECOGNIZED DRUG - OTHER] IV SCH (22:11)
[2020-02-17] MEDS ORDERED: Ketorolac Tromethamine 30 MG/ML VIAL IVP SCH (23:59)
[2020-02-18] MEDS: Morphine 4 MG/ML VIAL SLOW IVP PRN ×3 (00:20→22:41)
[2020-02-18] MEDS: hydrALAZINE 20 MG/ML VIAL SLOW IVP PRN ×5 (00:21→20:32)
[2020-02-18] MEDS: Sodium Chloride 0.9% 1,000 ML IV SCH ×2 (00:22→22:57)
--- NOTE | 2020-02-18 00:58 | PRG ---
DATE OF SERVICE: 02/17/2020 SUBJECTIVE: Patient was seen during evening rounds on the surgical floor. The patient was moved earlier today from the CCU. She is postop day #3, status post fascial reconstruction and she is post extubation day #1. The patient voices no complaints or concerns at this time. Her pain is controlled. The patient has an NG tube in place with approximately 940 mL out since this morning. Urinary output remains adequate. OBJECTIVE: VITAL SIGNS: Blood pressure 160/85, temperature 98.0, pulse 93, respirations 16, SpO2 of 94% on room air. GENERAL: Frail, ill-appearing female, sitting up in hospital bed, in no acute distress. PULMONARY: Equal chest rise and fall, no distress. ABDOMEN: Soft, mildly distended. Midline abdominal wound VAC in place with serosanguineous output in the canister. Ostomy remains well perfused with no output or gas in the bag. EXTREMITIES: Moves all extremities. No focal deficits. NEUROLOGIC: GCS is 15. ASSESSMENT: 1. Postop day #3, status post exploratory laparotomy with fascial reconstruction with biologic mesh. 2. History of mesenteric adenocarcinoma of the colon. 3. Acute respiratory failure, resolved. 4. Acute on chronic blood loss anemia, stable. 5. Acute phosphatemia. 6. Postop ileus. 7. Chronic severe malnutrition. 8. History of hypertension. PLAN: Continue n.p.o. status. Continue NG tube to low wall suction. Continue TPN and normal saline. Continue IV antibiotics. The patient is to be up in the chair as much as possible and participate with physical therapy as much as possible. The plan was discussed with the patient who agrees. Job ID: [id number]
[2020-02-18] MEDS: Ketorolac Tromethamine 30 MG/ML VIAL IVP SCH ×4 (01:42→20:32)
[2020-02-18] MEDS: Metoprolol Tartrate 5 MG/5 ML VIAL IVP SCH ×5 (01:44→22:58)
[2020-02-18] MEDS: Piperacillin/Tazobactam 4.5 GM in Sodium Chloride 0.9% 100 ML IVPB SCH ×3 (05:44→22:20)
[2020-02-18 06:17] LABS: Anion Gap 13 mmol/L (10-20); BUN (Urea Nitrogen) 18 mg/dL (9.8-20.1); Calc. Creatinine Clearance 114 mL/min (70-130); Calcium 8.5 mg/dL (7.8-10.44); Carbon Dioxide 22 mmol/L (23-31); Chloride 108 mmol/L (98-107); Estimated GFR-MDRD Greater than 90; Glucose 100 mg/dL (80-115); Phosphorus 3.3 mg/dL (2.3-4.7); Potassium 3.8 mmol/L (3.5-5.1); Sodium 139 mmol/L (136-145)
[2020-02-18 06:18] LABS: Hemoglobin 8.3 g/dL (12.0-16.0); Mean Corpuscular HGB CONC 33.3 g/dL (32.0-36.0); Mean Corpuscular Hemoglobin 30.2 pg (27.0-31.0); Mean Corpuscular Volume 90.6 fL (78.0-98.0); Mean Platelet Volume 9.3 fL (7.4-10.4); Platelet Count 154 thou/uL (130-400); RBC Distribution Width 19.7 % (11.5-14.5); Red Blood Cell (RBC) Count 2.75 mill/uL (4.20-5.40); White Blood Cell (WBC) Count 13.4 thou/uL (4.8-10.8)
[2020-02-18 08:13] LABS: Eosinophils 1 % (0-10); Lymphocytes 14 % (21-51); MDiff Complete? YES; Monocytes 3 % (0-10); Neutrophil 81 % (42-75)
[2020-02-18] MEDS ORDERED: Potassium Phosphate 15 MMOL in Sodium Chloride 0.9% 250 ML 250 ML IVPB SCH (08:15)
[2020-02-18] MEDS: Enoxaparin Sodium 40 MG/0.4 ML SYRINGE SC SCH (08:56)
[2020-02-18] MEDS: Pantoprazole 40 MG VIAL IVP SCH ×2 (08:57→20:33)
--- NOTE | 2020-02-18 14:07 | PRG ---
DATE OF SERVICE: 02/18/2020 SUBJECTIVE: The patient was seen this morning, sitting up in bed. She reported her pain was better controlled. NG tube has a large amount of output. She reports she is hungry. No output from the colostomy. OBJECTIVE: VITAL SIGNS: Temperature 98.2, pulse 107, respirations 16, oxygen saturation 97% on room air, and blood pressure 170/83. GENERAL: Ill-appearing elderly female, lying in bed with no signs of acute distress. PULMONARY: Equal chest rise and fall. Clear breath sounds bilaterally. No signs of acute respiratory distress. CARDIAC: Tachycardic, but regular rhythm. GI: Abdomen is soft, appropriately tender to palpation and nondistended. Midline VAC is in place. Colostomy was well perfused with no output. EXTREMITIES: 2+ pulses in all extremities. Gross motor and sensation are intact. No significant swelling noted. She has moderately significant swelling to her bilateral upper and lower extremities. NEUROLOGIC: GCS is 15. LABORATORY FINDINGS: White count 13.4, hemoglobin 8.3, hematocrit 24.9, and platelets 154. Sodium 139, potassium 3.8, chloride 108, bicarb 22, BUN 18, creatinine 0.67, glucose 100, phosphorus 3.3, and magnesium 2.0. DIAGNOSTIC FINDINGS: There are no new diagnostic findings to report. ASSESSMENT: 1. Postoperative day #4, status post exploratory laparotomy with fascial reconstruction with biologic mesh. 2. History of metastatic adenocarcinoma of the colon. 3. Acute respiratory failure, resolved. 4. Acute on chronic blood loss, stable. 5. Acute hypophosphatemia and hypokalemia. 6. Ileus, persistent. 7. Severe chronic anemia. 8. History of hypertension. 9. Leukocytosis, etiology unclear. 10. Postoperative pain, improving. PLAN: Continue n.p.o. Continue NG tube to low intermittent wall suction. Continue current pain medications. Continue Simmons. The patient to be up out of bed and into a neuro chair today. She is to start working with Physical and Occupational Therapy. Replace electrolytes. Continue to monitor for fever. The patient has been having a hard time sleeping in the hospital. She can receive p.r.n. diphenhydramine at night for insomnia. This patient was discussed with Dr. Sarah before this dictation. Job ID: [id number]
[2020-02-18] MEDS: diphenhydrAMINE 50 MG/ML VIAL IVP PRN ×2 (17:29→23:52)
--- NOTE | 2020-02-18 19:41 | RAD ---
Chest one view HISTORY: Dyspnea. Bowel obstruction. COMPARISON: 02/16/2020. FINDINGS: Cardiac silhouette is magnified, upper limits of normal, and now partially obscured by incr easing parenchymal and pleural opacity at each base. Pulmonary vasculature is now more engorged with widespread ill-defined reticulonodular interstitial p rominence. Mediastinum is midline. Endotracheal catheter no longer visible. Right subclavian central venous cath eter and nasogastric tube remain in place. IMPRESSION : Increasing pulmonary vascular congestion, bibasilar infiltrates, and pleural fluid. Interval removal of the endotracheal catheter.
[2020-02-18 19:43] LABS: Anion Gap 13 mmol/L (10-20); BUN (Urea Nitrogen) 19 mg/dL (9.8-20.1); Calc. Creatinine Clearance 117 mL/min (70-130); Calcium 8.5 mg/dL (7.8-10.44); Carbon Dioxide 19 mmol/L (23-31); Chloride 109 mmol/L (98-107); Estimated GFR-MDRD Greater than 90; Glucose 118 mg/dL (80-115); Magnesium 1.9 mg/dL (1.6-2.6); Phosphorus 3.7 mg/dL (2.3-4.7); Potassium 3.8 mmol/L (3.5-5.1); Sodium 137 mmol/L (136-145)
[2020-02-18 19:48] LABS: Troponin I 0.033 ng/mL (< 0.028)
[2020-02-18 19:51] LABS: Anisocytosis SLIGHT = 6-15 cells (100X) (0-5/hpf); Band 7 % (5-11); Hemoglobin 8.8 g/dL (12.0-16.0); Lymphocytes 7 % (21-51); MDiff Complete? YES; Mean Corpuscular HGB CONC 32.8 g/dL (32.0-36.0); Mean Corpuscular Volume 91.6 fL (78.0-98.0); Mean Platelet Volume 9.5 fL (7.4-10.4); Monocytes 6 % (0-10); Neutrophil 77 % (42-75); Platelet Count 157 thou/uL (130-400); Platelet Morphology Comment Appears Adequate; Polychromasia SLIGHT = 2-3 cells (100X) (0-2/hpf); RBC Distribution Width 19.6 % (11.5-14.5); Reactive Lymphocytes 3 % (0-10); Red Blood Cell (RBC) Count 2.94 mill/uL (4.20-5.40); Tear Drops SLIGHT = 2-5 cells (100X) (0-1/hpf); White Blood Cell (WBC) Count 16.9 thou/uL (4.8-10.8)
[2020-02-18] MEDS ORDERED: cloNIDine 0.2 MG TAB PO SCH (20:00)
[2020-02-18] MEDS ORDERED: Haloperidol Lactate 5 MG/ML VIAL SLOW IVP PRN ×2 (21:39→21:59)
[2020-02-18] MEDS ORDERED: Albumin 25% 25 GM/100 ML BOT IVPB SCH (21:57)
[2020-02-18] MEDS ORDERED: Furosemide 40 MG/4 ML VIAL SLOW IVP SCH (22:00)
[2020-02-18] MEDS: POTASSIUM ACETATE IV SCH (22:21)
[2020-02-18] MEDS: [UNRECOGNIZED DRUG - OTHER] IV SCH (22:21)
[2020-02-18] MEDS: SODIUM ACETATE IV SCH (22:21)
[2020-02-18] MEDS: Haloperidol Lactate 5 MG/ML VIAL SLOW IVP PRN (22:49)
[2020-02-18 23:24] LABS: CKMB 1.2 ng/mL (0-6.6)
[2020-02-18] MEDS ORDERED: Sodium Chloride 0.9% 1,000 ML IV SCH (23:52)
[2020-02-19] MEDS: Morphine 4 MG/ML VIAL SLOW IVP PRN ×2 (01:50→20:46)
[2020-02-19 02:31] LABS: Band 2 % (5-11); Hemoglobin 8.3 g/dL (12.0-16.0); Lymphocytes 6 % (21-51); MDiff Complete? YES; Mean Corpuscular HGB CONC 32.8 g/dL (32.0-36.0); Mean Corpuscular Hemoglobin 29.6 pg (27.0-31.0); Mean Corpuscular Volume 90.3 fL (78.0-98.0); Mean Platelet Volume 9.9 fL (7.4-10.4); Monocytes 7 % (0-10); Neutrophil 85 % (42-75); Platelet Count 143 thou/uL (130-400); RBC Distribution Width 19.5 % (11.5-14.5); Red Blood Cell (RBC) Count 2.79 mill/uL (4.20-5.40); White Blood Cell (WBC) Count 15.8 thou/uL (4.8-10.8)
[2020-02-19 02:48] LABS: Anion Gap 16 mmol/L (10-20); BUN (Urea Nitrogen) 20 mg/dL (9.8-20.1); Calc. Creatinine Clearance 109 mL/min (70-130); Calcium 8.7 mg/dL (7.8-10.44); Carbon Dioxide 19 mmol/L (23-31); Chloride 107 mmol/L (98-107); Estimated GFR-MDRD Greater than 90; Glucose 123 mg/dL (80-115); Magnesium 1.9 mg/dL (1.6-2.6); Phosphorus 3.8 mg/dL (2.3-4.7); Potassium 3.4 mmol/L (3.5-5.1); Sodium 139 mmol/L (136-145)
--- NOTE | 2020-02-19 03:01 | PRG ---
DATE OF SERVICE: 02/18/2020 SUBJECTIVE: The patient was seen during evening rounds, awake, alert, in moderate respiratory distress. The patient had complained of shortness of breath and chest pain earlier in the evening. Chest x-ray, EKG, and cardiac enzymes were obtained. The patient has had some visual hallucinations off and on all day. The patient has not slept in several days. The patient reports just not being able to fall asleep. The patient was given some Benadryl earlier IV, which really did not help her fall asleep. The patient's NG tube with no output other than some blood-tinged secretions. The patient's NG tube was positioned and flushed and was working properly. The patient continues to have no output from her colostomy. The patient continues to report that she is hungry. The patient's blood pressure has been elevated most of the day and the patient was mildly tachycardic earlier today, which improved. The patient appears mildly anxious, but improved after NG tube was functioning. OBJECTIVE: VITAL SIGNS: Temperature 97.8, pulse 87, respirations 18, SpO2 of 95% on room air, and blood pressure 169/93. GENERAL: Well-appearing elderly female, sitting up in bed, in moderate respiratory distress. PULMONARY: Equal chest rise and fall, tachypneic, clear breath sounds in bilateral upper lobes, mildly diminished in the bases. No wheezing, rales, or rhonchi. CARDIAC: Regular rate, regular rhythm, +2 pedal edema. ABDOMEN: Soft, nondistended, midline VAC in place, ostomy site remains well perfused with no output. EXTREMITIES: Moves all extremities, distal pulses 2+, generalized edema in all extremities. Gross motor and sensation intact in all extremities. NEUROLOGIC: No focal deficits, GCS is 15. LABORATORY FINDINGS: WBC 16.9, RBC 2.94, hemoglobin 8.8, hematocrit 27, platelets 157, and bands 7. Sodium 137, potassium 3.8, chloride 109, carbon dioxide 19, BUN 19, creatinine 0.66, estimated GFR greater than 90, glucose 114, calcium 8.5, phosphorus 3.7, and magnesium 1.9. Troponin 0.033, repeat 3 hours later 0.035. CK-MB 1.2. DIAGNOSTIC DATA: A 12-lead EKG; sinus rhythm, no ST or T-wave abnormalities. QTc 442. Chest x-ray, impression; increase in pulmonary vascular congestion, bibasilar infiltrates, and pleural fluid. ASSESSMENT: 1. Postop day #4, status post exploratory laparotomy with fascial reconstruction with biological mesh. 2. Ileus, persistent. 3. Bilateral pulmonary effusions with mild respiratory distress. 4. Elevated troponin, likely secondary to demand ischemia from her pleural effusions. PLAN: Continue n.p.o., NG tube to low wall intermittent suction. Continue pain regimen. Continue to monitor urinary output. We will diurese the patient as she has bilateral pleural effusions. We will continue to trend troponin. We will also give Haldol as the patient is having visual hallucinations and has not slept in several days. We will continue to monitor the patient's QTc. If the patient's respiratory status worsens, we will place the patient on BiPAP. We will decrease the patient's maintenance IV fluids to 30 mL an hour. The plan was discussed with the patient, who agrees. Job ID: [id number]
[2020-02-19] MEDS: Haloperidol Lactate 5 MG/ML VIAL SLOW IVP PRN (04:27)
[2020-02-19] MEDS: Piperacillin/Tazobactam 4.5 GM in Sodium Chloride 0.9% 100 ML IVPB SCH ×3 (05:08→22:07)
[2020-02-19] MEDS: Metoprolol Tartrate 5 MG/5 ML VIAL IVP SCH ×3 (05:09→18:52)
[2020-02-19] MEDS ORDERED: Potassium Chloride 40 MEQ, Magnesium Sulfate 2 GM in Sodium Chloride 0.9% 250 ML 250 ML IVPB SCH (07:00)
[2020-02-19] MEDS ORDERED: Magnesium Sulfate 2 GM in Sodium Chloride 0.9% 100 ML IVPB SCH (07:00)
[2020-02-19] MEDS: Enoxaparin Sodium 40 MG/0.4 ML SYRINGE SC SCH (08:33)
[2020-02-19] MEDS: Pantoprazole 40 MG VIAL IVP SCH ×2 (08:33→20:47)
[2020-02-19] MEDS ORDERED: Albumin 25% 25 GM/100 ML BOT IVPB ONE (09:46)
[2020-02-19] MEDS ORDERED: GoLYTELY 4,000 ml Bottle PO SCH (10:00)
[2020-02-19] MEDS ORDERED: Furosemide 40 MG/4 ML VIAL SLOW IVP SCH ×3 (10:00→22:15)
--- NOTE | 2020-02-19 14:22 | PRG ---
DATE OF SERVICE: 02/19/2020 Ms. 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 The patient is status post Homa's procedure, wedge liver biopsy, and segmental small bowel resection, primary anastomosis. She subsequently developed wound dehiscence due to severe chronic malnutrition. Did require reoperation. Surgery necessitated segmental small bowel resection with subsequent primary anastomosis. Large amount of hard stool is noted in the entire right colon. Postoperatively, the patient has had a slow recovery course. This morning, she is awake and alert, reports adequate pain control. Nasogastric tube has returned over a liter of bilious effluent over the last 24 hours. Urinary output otherwise is adequate for this patient's age. The patient is complaining of some anterior chest wall pain, which is intermittent. Denying any syncope or dyspnea. She required a dose of furosemide last night due to suspicion of acute CHF exacerbation. OBJECTIVE: VITAL SIGNS: This morning include blood pressure 173/83, pulse is 95, respiratory rate of 16, temperature is 98 degrees Fahrenheit, and oxygen saturation is 95% on room air. HEENT: Pupils are equal, round, and reactive to light and accommodation. HEART: Reveals regular rate and rhythm. No murmurs or gallops auscultated. LUNGS: Clear to auscultation bilaterally. Breathing, regular and unlabored. ABDOMEN: Soft, moderately distended. Ostomy is viable and has a small amount of liquid stool and gas in the pouch. Wound VAC remains in place with minimum serous fluid output over the last 24 hours. NEUROLOGIC: Reveals no focal deficits present. LABORATORY FINDINGS: Today include a CBC with 15,800 white blood cells. Hemoglobin and hematocrit are stable at 8.3 and 25.2 respectively, and platelet count is also stable at 143,000. Metabolic profile; sodium 139, potassium 3.4, chloride is 107, bicarb is 19, BUN 20, creatinine 0.71, glucose 123, magnesium 1.9, and phosphorus 3.8. BNP today is 1866.9. IMPRESSION: 1. Postoperative day #10, status post re-exploratory laparotomy, abdominal washout, and segmental small bowel resection and wound VAC application. 2. Postop day #7, status post second-look laparotomy, abdominal washout, small bowel anastomosis and wound VAC reapplication. 3. Postoperative day #5, status post exploratory laparotomy, abdominal washout, fascia reconstruction with Strattice biologic mesh. 4. Acute congestive heart failure exacerbation. 5. Acute on chronic blood loss anemia, stable. 6. Acute hypokalemia. 7. Acute hypomagnesemia. 8. Adynamic ileus with prior chronic constipation. PLAN: 1. Correct abnormal electrolytes. 2. Increase activity per Physical and Occupational Therapy. 3. Continue with diuresis, monitoring the patient's urinary output and clinical examination as endpoint. Above findings and plan discussed with the patient, who indicates understanding information given. I have answered her questions. Total Critical care time : 45 minutes Job ID: [id number] MTDD
[2020-02-19] MEDS ORDERED: Haloperidol Lactate 5 MG/ML VIAL SLOW IVP PRN (15:11)
[2020-02-19 15:35] LABS: Hemoglobin 7.8 g/dL (12.0-16.0); Mean Corpuscular HGB CONC 33.2 g/dL (32.0-36.0); Mean Corpuscular Hemoglobin 30.1 pg (27.0-31.0); Mean Corpuscular Volume 90.7 fL (78.0-98.0); Mean Platelet Volume 9.8 fL (7.4-10.4); Platelet Count 120 thou/uL (130-400); RBC Distribution Width 19.3 % (11.5-14.5); Red Blood Cell (RBC) Count 2.58 mill/uL (4.20-5.40); White Blood Cell (WBC) Count 21.2 thou/uL (4.8-10.8)
[2020-02-19 16:01] LABS: Anisocytosis SLIGHT = 6-15 cells (100X) (0-5/hpf); Band 4 % (5-11); Hypochromia SLIGHT = 6-15 cells (100X) (0-5/hpf); Lymphocytes 4 % (21-51); MDiff Complete? YES; Monocytes 7 % (0-10); Neutrophil 85 % (42-75); Platelet Morphology Comment Appears Decreased; Polychromasia SLIGHT = 2-3 cells (100X) (0-2/hpf); Target Cells SLIGHT = 2-5 cells (100X) (0-1/hpf)
[2020-02-19 16:03] LABS: Anion Gap 14 mmol/L (10-20); BUN (Urea Nitrogen) 21 mg/dL (9.8-20.1); Calc. Creatinine Clearance 109 mL/min (70-130); Calcium 8.7 mg/dL (7.8-10.44); Carbon Dioxide 21 mmol/L (23-31); Chloride 107 mmol/L (98-107); Estimated GFR-MDRD Greater than 90; Glucose 135 mg/dL (80-115); Magnesium 2.3 mg/dL (1.6-2.6); Phosphorus 3.6 mg/dL (2.3-4.7); Potassium 3.8 mmol/L (3.5-5.1); Sodium 138 mmol/L (136-145)
--- NOTE | 2020-02-19 16:07 | EKG ---
Test Reason : STAT Blood Pressure : / mmHG Vent. Rate : 096 BPM Atrial Rate : 096 BPM P-R Int : 134 ms QRS Dur : 068 ms QT Int : 350 ms P-R-T Axes : 040 010 045 degrees QTc Int : 442 ms Normal sinus rhythm Low voltage QRS Cannot rule out Anterior infarct (cited on or before 23-JAN-2020) Abnormal ECG When compared with ECG of 18-FEB-2020 01:37, (Unconfirmed) No significant change was found Confirmed by NATHALY THOMPSON, . SNaresh (4) on 02/19/2020 4:07:26 PM Referred By: QUAN FERMIN Confirmed By:DR. Jacob ANDERSEN MD
[2020-02-19] MEDS ORDERED: Albumin 25% 25 GM/100 ML BOT IVPB SCH (16:25)
--- NOTE | 2020-02-19 17:27 | RAD ---
PORTABLE CHEST: Date: 02-19-2020 Provided Clinical History: NG tube placement. FINDINGS: Comparison 02-18-2020. Interval placement of an enteric catheter, the tip of which projects below the diaphragm near the mid line. The proximal side hole lucency projects over the expected location of the gastroesophageal junc tion. Bibasilar pleural parenchymal lung changes are partially visualized. Partially visualized cauda l aspects of central line. The cranial aspects of the thorax are not included. The abdominal bowel ga s pattern is nonspecific. IMPRESSION: Enteric catheter positioning as described. POS: SHAY
[2020-02-19 17:51] LABS: Calcium, Ionized 1.18 mmol/L (1.12-1.30); Carboxyhemoglobin (COHb) 1.2 gm% (0.0-3.0); Hemoglobin (Hb) 11.5 g/dL (12.0-16.0); Potassium - ABG Lab 3.84 mmol/L (3.70-5.30); pH, Arterial 7.32 (7.35-7.45)
[2020-02-19 17:57] LABS: O2 Tension (PaO2), arterial 57.3 mmHg (> 80.0)
[2020-02-19 17:58] LABS: Puncture Site RBRACH
[2020-02-19 19:17] LABS: Troponin I 0.022 ng/mL (< 0.028)
[2020-02-19] MEDS ORDERED: SODIUM ACETATE IV SCH ×2 (22:00)
[2020-02-19] MEDS ORDERED: POTASSIUM ACETATE IV SCH ×2 (22:00)
[2020-02-19] MEDS ORDERED: [UNRECOGNIZED DRUG - OTHER] IV SCH ×2 (22:00)
[2020-02-19] MEDS ORDERED: Furosemide 40 MG/4 ML VIAL ONE (22:04)
[2020-02-19] MEDS: diphenhydrAMINE 50 MG/ML VIAL IVP PRN (22:06)
[2020-02-19] MEDS: SODIUM ACETATE IV SCH (22:07)
[2020-02-19] MEDS: POTASSIUM ACETATE IV SCH (22:07)
[2020-02-19] MEDS: [UNRECOGNIZED DRUG - OTHER] IV SCH (22:07)
[2020-02-19] MEDS: FAT EMULSION IV SCH (22:07)
[2020-02-20] MEDS: Metoprolol Tartrate 5 MG/5 ML VIAL IVP SCH ×5 (01:08→23:10)
--- NOTE | 2020-02-20 02:43 | PRG ---
DATE OF SERVICE: 02/19/2020 SUBJECTIVE: The patient was seen in the intermediate care unit during evening rounds. The patient is currently awake, alert, on BiPAP. The patient does have some mild respiratory distress. The patient was diuresed earlier. Urinary output has been adequate. The patient is more irritable this evening. The patient continues to ask to see her and wishes to go home. The patient denies any pain at this time. OBJECTIVE: VITAL SIGNS: Blood pressure 138/81, heart rate 95, respirations 28, SpO2 of 99% on BiPAP, temperature 97.4, BiPAP at 50% FiO2. GENERAL: Ill-appearing, middle aged female, in mild respiratory distress. The patient is able to speak several words, but difficult to understand due to patient's mouth and tongue being severely dry. BiPAP removed briefly to clean patient's mouth and moisten the tongue. The patient became more tachypneic off the BiPAP and was replaced. HEENT: Unremarkable. NECK: Positive JVD, trachea midline. RESPIRATORY: Clear breath sounds, upper airway gurgling noted, the patient is unable to cough deeply. Upper lobes are clear bilaterally, lower lobes diminished bilaterally, regular and tachypneic, and mildly labored. ABDOMEN: Soft, moderately distended. Ostomy is viable with small amount of brown liquid stool and gas in the pouch. Wound VAC remains in place with minimal serous fluid output. NEUROLOGIC: No focal deficits. LABORATORY DATA: Troponin 0.022. IMPRESSION: 1. Postop day #10, status post re-exploratory laparotomy, abdominal washout, and segmental small bowel resection and wound VAC application. Postop day #7, status post second-look laparotomy, abdominal washout, small bowel anastomosis and wound VAC re-application. 2. Postop day #5 status post exploratory laparotomy, abdominal washout and fascia reconstruction with biological mesh. 3. Acute congestive heart failure exacerbation. 4. Acute on chronic blood loss anemia, stable. 5. Hypokalemia, stable. 6. Hypomagnesemia, stable. 7. Adynamic ileus with prior chronic constipation. PLAN: Increase activity per physical and occupational therapy. Continue to monitor urinary output. We will diurese the patient with Lasix this evening. She has mild respiratory distress. Continue BiPAP overnight. We will hold patient's maintenance IV fluids. We will restart patient's TPN at half dose to minimize overload. Encourage sleep hygiene as the patient has not been sleeping at night. Continue NG tube to low wall suction. Repeat labs in the morning. We will consider restarting Rosalia roberts. Job ID: [id number]
[2020-02-20] MEDS: Piperacillin/Tazobactam 4.5 GM in Sodium Chloride 0.9% 100 ML IVPB SCH ×3 (05:15→21:37)
[2020-02-20 05:40] LABS: Anion Gap 14 mmol/L (10-20); BUN (Urea Nitrogen) 23 mg/dL (9.8-20.1); Calc. Creatinine Clearance 98 mL/min (70-130); Calcium 8.8 mg/dL (7.8-10.44); Carbon Dioxide 23 mmol/L (23-31); Chloride 104 mmol/L (98-107); Estimated GFR-MDRD Greater than 90; Glucose 100 mg/dL (80-115); Phosphorus 3.6 mg/dL (2.3-4.7); Potassium 3.2 mmol/L (3.5-5.1); Sodium 138 mmol/L (136-145)
[2020-02-20] MEDS ORDERED: Furosemide 40 MG/4 ML VIAL SLOW IVP SCH (07:00)
[2020-02-20] MEDS ORDERED: Potassium Chloride 40 MEQ in Premix Bag 1 BAG IVPB SCH ×2 (07:00→21:30)
[2020-02-20] MEDS ORDERED: Potassium Phosphate 30 MMOL in Sodium Chloride 0.9% 500 ML IVPB SCH (07:00)
[2020-02-20] MEDS: Enoxaparin Sodium 40 MG/0.4 ML SYRINGE SC SCH (08:12)
[2020-02-20] MEDS: Pantoprazole 40 MG VIAL IVP SCH ×2 (08:13→21:37)
[2020-02-20] MEDS ORDERED: hydrALAZINE 20 MG/ML VIAL SLOW IVP SCH (08:15)
[2020-02-20] MEDS ORDERED: Succinylcholine Chloride 20 MG/ML 10 ml SYRINGE FS ONE (09:15)
--- NOTE | 2020-02-20 11:20 | PRG ---
DATE OF SERVICE: 02/20/2020 SUBJECTIVE: Ms. 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 The patient is status post sigmoidectomy with end colostomy, wedge liver biopsy , and segmental small-bowel resection with primary anastomosis. She subsequently developed wound dehiscence secondary to severe chronic malnutrition. She underwent abdominal exploration and ultimately, had a segmental small-bowel resection with primary anastomosis. Abdomen was temporary closed using ABThera wound VAC. She is postoperative day #6, status post abdominal washout, fascia reconstruction with Strattice biologic mesh. The patient developed shortness of breath yesterday. Workup was consistent with acute congestive heart failure exacerbation, for which the patient was started on forced diuresis. Cardiac workup revealed no evidence of acute myocardial infarction. Transthoracic echocardiogram was ordered and is pending at this time. The patient is currently awake and alert. Denies any shortness of breath. She is on room air with oxygen saturation which is noted at 100%. Note that, she was placed on BiPAP overnight. OBJECTIVE: VITAL SIGNS: Currently, include blood pressure 145/79, pulse 87, respiratory rate is 29, maximum temperature in last 24 hours is 98.7 degrees Fahrenheit, and oxygen saturation is 100% on room air. HEENT: Pupils are equally round and reactive to light and accommodation. HEART: Reveals regular rate and rhythm. LUNGS: Reveal bibasilar rhonchi. Breathing regular and nonlabored. ABDOMEN: Soft. Nontender to palpation. Colostomy is viable with old darcie stool and gas. Wound VAC was removed at bedside, and the Strattice fascia reconstruction remains intact, minimum granulation present. EXTREMITIES: Reveal 2+ radial and pedal pulses bilaterally. She has no ankle edema present. NEUROLOGIC: Reveals no focal deficits present. LABORATORY FINDINGS: Include a CBC with 10,300 white blood cells, hemoglobin and hematocrit are 12.9 and 40.0 respectively. Platelet count is 85,000. Metabolic profile; sodium 138, potassium 3.2, chloride is 104, bicarb is 23, BUN is 23, creatinine is 0.76, glucose is 100, magnesium 2.0, phosphorus is 3.6. BNP is 2435.4. I have personally reviewed the chest x-ray obtained this morning, which reveals bibasilar pleuroparenchymal lung opacifications and bilateral pleural effusions present. IMPRESSION: 1. Acute congestive heart failure exacerbation. 2. Stage IV moderately-differentiated adenocarcinoma of the sigmoid colon with liver and small bowel metastasis. 3. Acute hypokalemia. 4. Acute on chronic blood loss anemia, stable. 5. Severe chronic malnutrition. PLAN: 1. Continue with forced diuresis for another 24 hours. 2. Increase activity per Physical and Occupational Therapy. 3. Correct abnormal electrolytes. 4. Continue with parenteral nutritional supplementation at this time as the patient was found with extensive amount of hard stool impacting the entire right colon, it is unlikely that her small bowel will empty properly. 5. We will initiate a low rate of GoLYTELY prep through the nasogastric tube. Above findings and plan discussed with the patient, who indicates understanding of information given. I have answered her questions. Total critical care time : 35 minutes Job ID: [id number] MTDD
--- NOTE | 2020-02-20 13:23 | RAD ---
AP CHEST: INDICATION: Hypoxia. COMPARISON: 02/18/2020. FINDINGS/IMPRESSION: Bilateral effusions and bibasilar infiltrates and atelectasis with bilateral perihilar infiltrates. NG tube and central line are unchanged. Right basilar opacity has increased since 02/18/2020. The le ft lung changes appear stable. POS: AGW
[2020-02-20] MEDS: Metoclopramide HCl 10 MG/2 ML VIAL IVP SCH ×2 (15:15→21:37)
[2020-02-20 20:02] LABS: Anion Gap 11 mmol/L (10-20); BUN (Urea Nitrogen) 22 mg/dL (9.8-20.1); Calc. Creatinine Clearance 97 mL/min (70-130); Calcium 8.9 mg/dL (7.8-10.44); Carbon Dioxide 25 mmol/L (23-31); Chloride 104 mmol/L (98-107); Estimated GFR-MDRD Greater than 90; Glucose 136 mg/dL (80-115); Phosphorus 3.5 mg/dL (2.3-4.7); Potassium 3.2 mmol/L (3.5-5.1); Sodium 137 mmol/L (136-145)
[2020-02-20] MEDS ORDERED: Norepinephrine 8 MG/0.9% NS 250 ML ONE (20:24)
[2020-02-20] MEDS ORDERED: Norepinephrine 8 MG/0.9% NS 250 ML IVPB SCH (20:26)
[2020-02-20] MEDS ORDERED: Morphine 2 MG/ML SYRINGE SLOW IVP PRN (20:42)
[2020-02-20] MEDS ORDERED: Fentanyl BOLUS 250 ML IVPB PRN (20:42)
[2020-02-20] MEDS ORDERED: fentaNYL Citrate/PF 2,000 MCG in Sodium Chloride 0.9% 60 ML IV SCH (20:42)
[2020-02-20] MEDS ORDERED: Lorazepam 2 MG/ML VIAL SLOW IVP PRN (20:42)
[2020-02-20] MEDS: Fentanyl 100 MCG/2 ML VIAL ONE (20:44)
[2020-02-20] MEDS: Amiodarone 450 MG, Admixture Fee 1 EACH in Dextrose 5% in Water 250 ML IVPB SCH ×2 (20:59→21:07)
[2020-02-20] MEDS ORDERED: Amiodarone 150 MG, Admixture Fee 1 EACH in Dextrose 5% in Water 100 ML IVPB SCH (21:00)
[2020-02-20 21:08] LABS: Actual Bicarbonate (HCO3a) 21.8 mEq/L (22-28); Base Excess (BEa) -3.3 mEq/L (-2.0 to +3.0); CO2 Tension 39.4 mmHg (35.0-45.0); Calcium, Ionized 1.12 mmol/L (1.12-1.30); Carboxyhemoglobin (COHb) 1.3 gm% (0.0-3.0); Hemoglobin (Hb) 8.3 g/dL (12.0-16.0); O2 Tension (PaO2), arterial 287.2 mmHg (> 80.0); Potassium - ABG Lab 3.29 mmol/L (3.70-5.30); pH, Arterial 7.36 (7.35-7.45)
[2020-02-20 21:11] LABS: Puncture Site LR
[2020-02-20] MEDS ORDERED: Propofol 1,000 MG/100 ML VIAL IV ONE (21:11)
--- NOTE | 2020-02-20 21:12 | RAD ---
CHEST ONE VIEW: 02/20/20 INDICATION: History of intubation. COMPARISON: Prior study dated 02/20/20. FINDINGS: The patient is now intubated with ET tube tip seen approximately 1.9 cm below the level of the jose . Right sided subclavian central venous catheter and gastric catheter are unchanged. Cardiomegaly and pulmonary vascular congestion. Perihilar air space opacities persists. Small bilateral pleural effus ions are similar appearing. No pneumothorax is evident. IMPRESSION: Interval intubation. POS: BH
[2020-02-20] MEDS ORDERED: Propofol BOLUS 1,000 MG/100 ML VIAL IV PRN ×2 (21:29→21:35)
[2020-02-20] MEDS ORDERED: Propofol 1,000 MG/100 ML VIAL IV PRN ×2 (21:29→21:35)
[2020-02-20] MEDS ORDERED: DISCONTINUE PREVIOUS NARCOTIC PAIN MEDICATIONS AND BENZODIAZEPINES FS SCH (21:29)
[2020-02-20] MEDS ORDERED: Sodium Chloride 0.9% 500 ML IV SCH (21:30)
[2020-02-20] MEDS ORDERED: Ventilator Sedation Protocol 1 EACH FS SCH (21:45)
[2020-02-20] MEDS ORDERED: Magnesium 2 GM/50 ML 2 GM in Premix Bag 1 BAG IVPB SCH (21:45)
[2020-02-20] MEDS: FAT EMULSION IV SCH (21:48)
[2020-02-20] MEDS: SODIUM ACETATE IV SCH (21:48)
[2020-02-20] MEDS: [UNRECOGNIZED DRUG - OTHER] IV SCH (21:48)
[2020-02-20] MEDS: POTASSIUM ACETATE IV SCH (21:48)
[2020-02-20] MEDS ORDERED: Fentanyl 100 MCG/2 ML VIAL SLOW IVP SCH (22:45)
[2020-02-20] MEDS ORDERED: Sodium Chloride 0.9% 1,000 ML IV SCH (22:45)
[2020-02-21] MEDS: Fentanyl 100 MCG/2 ML VIAL ONE
--- NOTE | 2020-02-21 01:36 | PRG ---
DATE OF SERVICE: 02/21/2020 SUBJECTIVE: The patient was moved to the [facility] for acute congestive heart failure exacerbation and was forced diuresed over the previous 24-36 hours this evening at the time of my assumption of shift. I was notified by the nurse that the patient appeared to have gone into atrial fibrillation with rapid ventricular response. EKG was ordered along with her electrolytes and the EKG confirmed atrial fibrillation with rapid ventricular response. Heart rates in the 120s-130s. Her blood pressure at that time was 141/100. She was complaining of nausea, but no pain. Her oxygen saturation was 98% on room air. The patient shortly thereafter vomited as she was getting GoLYTELY through her NG tube. Her NG tube was immediately placed back on suction and when I arrived at bedside, the patient was essentially unresponsive to verbal stimuli. She did still react to painful stimuli. Her heart rate had started to mo down with a bigeminy rhythm and her systolic blood pressure initially on arrival in the 70s and then trended down into the 60s. We contacted family members, both her and then her sister regarding her code status and the sister who is power of disability attorney stated that she wanted everything done. At this time, the patient underwent rapid sequence intubation and was started on Levophed and transferred to the critical care unit. Once in the critical care unit, we were able to wean the Levophed off completely. The patient resumed atrial fibrillation with rapid ventricular response, but blood pressure fluctuating between one-teens and 140s. We did not bolus her with amiodarone, but started her on infusion and within 30 minutes, the patient converted to a sinus rhythm. The patient was also given a fluid bolus as her urinary output had dropped significantly and was confirmed with irrigation of the Simmons and bladder scan showing 50 mL in the bladder. The patient's heart rate maintained between 80s and 90s, her systolic blood pressure is 100-120. The patient started making urine initially only 15 mL/h, but then increased to 45 mL, which is her target. The patient became responsive, would follow commands and nod her head. LABORATORY DATA: Chest x-ray showed her ET tube in the correct position. Her abdominal wound VAC was intact and functioning. Her abdomen was nondistended. Her extremities are neurovascularly intact x4. The patient had 1+ pitting edema in her anterior tibial area. Repeat labs showed sodium of 137, potassium 3.2, chloride 104, CO2 of 25, BUN 22, creatinine 0.77, glucose 136, magnesium 2.0, phosphorus 3.5. Arterial blood gas showed pH of 7.36, pCO2 of 40, PO2 287, base excess is -3.3, hemoglobin of 8.3. ASSESSMENT AND PLAN: 1. Acute respiratory failure requiring rapid sequence intubation. 2. Atrial fibrillation with rapid ventricular response. 3. Acute congestive heart failure exacerbation. 4. Stage IV moderately differentiated adenocarcinoma of the sigmoid colon with liver and small bowel metastasis. 5. Status post multiple abdominal surgeries secondary to above. 6. Acute hypokalemia. 7. Acute on chronic blood-loss anemia, stable. 8. Severe chronic malnutrition. PLAN: Plan will be to continue full ventilatory support. Replace electrolytes. Monitor urinary output closely. Continue with amiodarone drip at current rate. The evaluation, examination, and course of this treatment were discussed with Dr. Sarah. Job ID: [id number]
[2020-02-21] MEDS: Metoclopramide HCl 10 MG/2 ML VIAL IVP SCH ×4 (02:09→21:13)
[2020-02-21 03:57] LABS: Anion Gap 13 mmol/L (10-20); BUN (Urea Nitrogen) 21 mg/dL (9.8-20.1); Calc. Creatinine Clearance 101 mL/min (70-130); Calcium 7.9 mg/dL (7.8-10.44); Carbon Dioxide 22 mmol/L (23-31); Chloride 108 mmol/L (98-107); Estimated GFR-MDRD Greater than 90; Glucose 99 mg/dL (80-115); Magnesium 2.4 mg/dL (1.6-2.6); Phosphorus 3.6 mg/dL (2.3-4.7); Potassium 3.4 mmol/L (3.5-5.1); Sodium 140 mmol/L (136-145)
[2020-02-21] MEDS: Lactated Ringer's 1,000 ML IV SCH ×2 (04:38→16:21)
[2020-02-21] MEDS: Metoprolol Tartrate 5 MG/5 ML VIAL IVP SCH ×3 (05:03→18:24)
[2020-02-21] MEDS: Piperacillin/Tazobactam 4.5 GM in Sodium Chloride 0.9% 100 ML IVPB SCH ×3 (05:03→21:13)
[2020-02-21 05:14] LABS: Band 1 % (5-11); Hemoglobin 6.3 g/dL (12.0-16.0); Large Platelets SLIGHT; Lymphocytes 5 % (21-51); MDiff Complete? YES; Mean Corpuscular HGB CONC 32.4 g/dL (32.0-36.0); Mean Corpuscular Hemoglobin 29.6 pg (27.0-31.0); Mean Corpuscular Volume 91.4 fL (78.0-98.0); Mean Platelet Volume 11.1 fL (7.4-10.4); Monocytes 4 % (0-10); Neutrophil 90 % (42-75); Platelet Count 113 thou/uL (130-400); Platelet Morphology Comment Appears Decreased; RBC Distribution Width 19.5 % (11.5-14.5); Red Blood Cell (RBC) Count 2.14 mill/uL (4.20-5.40); White Blood Cell (WBC) Count 23.9 thou/uL (4.8-10.8)
[2020-02-21] MEDS ORDERED: Potassium Phosphate 15 MMOL in Sodium Chloride 0.9% 250 ML 250 ML IVPB SCH (07:00)
[2020-02-21] MEDS: Pantoprazole 40 MG VIAL IVP SCH ×2 (08:06→21:12)
[2020-02-21] MEDS ORDERED: Dextrose 10% in Water 1,000 ML IV SCH (08:45)
--- NOTE | 2020-02-21 10:59 | PDOC.PALPN ---
Palliative Progress Note - Subjective Intubated, mildly sedated. - Objective Vital Signs: Vital Signs - Most Recent Temp Pulse Resp BP Pulse Ox 98.9 F 71 20 173/83 H 100 02/21/20 07:00 02/21/20 10:49 02/21/20 10:00 02/19/20 12:00 02/21/20 07:35 - Physical Exam Constitutional: cachectic, emaciated, ill appearing HEENT: moist MMs, sclera anicteric Deviation from normal: Mechanical ventilation Cardiovascular: RRR Gastrointestinal: colostomy Genitourinary: bruce catheter Musculoskeletal: no cyanosis, no clubbing, pulses present, diffuse muscle atrophy Neurology: moves all 4 limbs Skin: cap refill <2 seconds, no rash, fragile - Assessment (1) Malnutrition Code(s): E46 - UNSPECIFIED PROTEIN-CALORIE MALNUTRITION Current Visit: No Status: Acute (2) Metastatic adenocarcinoma Code(s): C79.9 - SECONDARY MALIGNANT NEOPLASM OF UNSPECIFIED SITE Current Visit: No Status: Acute (3) Palliative care encounter Code(s): Z51.5 - ENCOUNTER FOR PALLIATIVE CARE Current Visit: No Status: Acute (4) Physical deconditioning Code(s): R53.81 - OTHER MALAISE Current Visit: No Status: Acute - Plan Plan: Ms Almanzar on mechanical ventilation. Patient sister Abbie was made MPOA in conjunction with patient . When contacted last night by Jazmine DIMAS with patient changes they identified that they wanted full resuscitation. Patient was intubated and placed on mechanical ventilation, Levophed initiated and after BP sustained stopped, currently on Amiodarone drip. Palliative Care has contacted patient sister ABBIE and requested she and patient come to the hospital to visit Ms Almanzar and discuss resuscitation status and discussion in relation to disease processes. Communicated with Trauma services, will assist in readdressing resuscitation status and assist Trauma services as requested to revisit Goal of Care. Please also refer to Aida Campos RNriver boat captain notes in note section. [35] minutes spent on this encounter with >50% of the time in counseling and coordination of care. - ROS Non Response: due to endotracheal tube, due to mental status
[2020-02-21] MEDS ORDERED: SODIUM ACETATE IV SCH (14:00)
[2020-02-21] MEDS ORDERED: [UNRECOGNIZED DRUG - OTHER] IV SCH (14:00)
[2020-02-21] MEDS ORDERED: POTASSIUM ACETATE IV SCH (14:00)
[2020-02-21 14:45] VITALS: BMI 26.1
[2020-02-21] MEDS ORDERED: Metoprolol Tartrate 5 MG/5 ML VIAL ONE (15:06)
--- NOTE | 2020-02-21 17:54 | PRG ---
DATE OF SERVICE: 02/21/2020 SUBJECTIVE: Ms. Almanzar is a 64-year-old woman with stage IV metastatic adenocarcinoma of the colon, who is status post sigmoidectomy with end colostomy as well as wedge liver biopsy, segmental small-bowel resection and primary anastomosis. Postoperative course has been complicated by poor wound healing due to severe malnutrition. The patient also has a significant amount of right colonic fecal stasis. This is causing a pseudo small-bowel obstruction. The patient apparently had difficulties with breathing last night while being treated for acute CHF exacerbation. This required urgent intubation and transfer to intensive care unit. She is sedated on mechanical ventilator support. When laid on sedation, she moves all extremities and seems to be upset of being intubated. She is on no vasopressor or inotropic support. Urinary output is adequate for the patient's age and weight. OBJECTIVE: VITAL SIGNS: This morning included blood pressure 123/63, pulse 76, respiratory rate is 19, maximum temperature in the last 24 hours noted at 98.9 degrees Fahrenheit, and oxygen saturation 100% on FiO2 of 40%. HEENT: Pupils are equally round and reactive to light and accommodation. No jugular venous distention noted. HEART: Regular rate and rhythm. No murmurs or gallops auscultated. LUNGS: Clear to auscultation bilaterally. Breathing regular and nonlabored. ABDOMEN: Soft and nondistended. Colostomy is viable with some semi-formed stool and minimum gas present. No peritoneal signs on examination. NEUROLOGIC: No focal deficits present. LABORATORY FINDINGS: CBC with 23,900 white blood cells, hemoglobin and hematocrit 6.3 and 19.6 respectively, and platelet count is 113,000. Metabolic profile: Sodium 140, potassium 3.4, chloride is 108, bicarb is 22, BUN is 21, creatinine is 0.74, and glucose 99. Magnesium 2.4. Phosphorus 3.6. IMPRESSION: 1. Stage IV metastatic adenocarcinoma of the colon status post Homa's procedure. 2. Status post re-operative laparotomy with segmental small-bowel resection and primary anastomosis with subsequent fascia reconstruction using Strattice. 3. Acute respiratory failure secondary to acute congestive heart failure exacerbation, improving. 4. Severe chronic malnutrition. 5. [id number] blood loss anemia. Note that the nasogastric tube was returning blood-tinged gastric effluent, consistent with gastritis, on Lovenox for venous thromboembolism prophylaxis. PLAN: 1. We had a family conference at bedside. The patient's , her adult sister, Palliative Care Service, as well as the patient's nurse were present. The decision was made after the consideration of the patient's condition to proceed with comfort care measures. 2. Sedation was lightened. The patient was extubated and participated in repeat care conference, at which time the patient indicated her will to proceed with comfort care measures. 3. She is requesting a DNAR status at this time. She understands that if indicated, failure to proceed with CPR or intubation may lead to her demise. 4. Meanwhile, we will continue medical management and hope that this right colonic fecal stasis will resolve because that will be the only chance the patient has to improve as currently she is unable to maintain adequate oral intake due to relative small-bowel obstruction secondary to right colonic fecal stasis. 5. We will continue with TPN in the interim. Above findings and plan has been discussed with the patient and her family, indicated understanding information provided. I have answered all their questions. Job ID: [id number]
[2020-02-21] MEDS ORDERED: Furosemide 40 MG/4 ML VIAL SLOW IVP SCH (18:00)
[2020-02-22] MEDS: Lactated Ringer's 1,000 ML IV SCH ×2 (00:51→08:57)
[2020-02-22] MEDS: Metoprolol Tartrate 5 MG/5 ML VIAL IVP SCH (00:51)
[2020-02-22] MEDS ORDERED: Furosemide 20 MG/2 ML VIAL SLOW IVP SCH (01:15)
--- NOTE | 2020-02-22 02:46 | PRG ---
DATE OF SERVICE: 02/22/2020 SUBJECTIVE: The patient is currently on the oncology floor. She is in an inpatient hospice status right now. She was extubated today, and after family discussion with her, her , sister, and Palliative Care, decision was made that she would be a DNAR and comfort measures will be instituted. The patient still is intaking very little nutrition. She is requiring minimal amount of pain medications, and her ostomy does appear to be functioning. At the time of my visit, her chief complaint was upper abdominal pain. The patient denied any nausea or vomiting, and her NG tube was clamped. PHYSICAL EXAMINATION: VITAL SIGNS: Stable. The patient is afebrile, noted that her oxygen saturation is staying closer to the low 90s. GENERAL: The patient is resting comfortably in bed. She is awake and responds appropriately and follows basic commands and she was interacting with her and her nurse earlier. Her chest has scattered rhonchi and occasional wheezes. HEART: Regular rate and rhythm. ABDOMEN: Soft with minimal tenderness diffusely. No overt peritoneal signs. Ostomy bag has liquid stool and gas in it. EXTREMITIES: Neurovascularly intact x4. ASSESSMENT AND PLAN: 1. Stage IV metastatic adenocarcinoma of the colon, status post Homa's procedure. 2. Status post reoperative laparotomy with segmental small bowel resection and primary anastomosis with subsequent . 3. Acute respiratory failure secondary to acute congestive heart failure exacerbation, improving. 4. Severe chronic malnutrition, on TPN. 5. Lryqi-hx-myljtzy blood loss anemia, received 1 unit of packed red blood cells today. PLAN: Plan will be to continue comfort measures and supportive care. We will continue and encourage nutrition and await placement decision. Job ID: [id number]
[2020-02-22] MEDS: Metoclopramide HCl 10 MG/2 ML VIAL IVP SCH ×3 (03:22→14:11)
[2020-02-22 04:21] VITALS: TEMP 99.1
[2020-02-22] MEDS: Piperacillin/Tazobactam 4.5 GM in Sodium Chloride 0.9% 100 ML IVPB SCH ×2 (05:40→14:10)
[2020-02-22 07:45] VITALS: BP 173/81
[2020-02-22] MEDS ORDERED: traMADol HCl 50 MG TAB PO PRN ×2 (08:45)
[2020-02-22] MEDS ORDERED: Morphine 2 MG/ML SYRINGE SLOW IVP SCH (08:45)
[2020-02-22] MEDS: Pantoprazole 40 MG VIAL IVP SCH (08:56)
[2020-02-22] MEDS: Acetaminophen 325 MG TAB PO SCH ×2 (08:56→14:12)
[2020-02-22] MEDS: Morphine 4 MG/ML VIAL SLOW IVP PRN ×2 (08:59→14:11)
[2020-02-22 09:58] LABS: %Neutrophils 89.1 % (42.0-75.0); Hemoglobin 8.9 g/dL (12.0-16.0); Mean Corpuscular HGB CONC 32.6 g/dL (32.0-36.0); Mean Corpuscular Hemoglobin 29.1 pg (27.0-31.0); Mean Corpuscular Volume 89.5 fL (78.0-98.0); Mean Platelet Volume 10.3 fL (7.4-10.4); Platelet Count 153 thou/uL (130-400); Red Blood Cell (RBC) Count 3.07 mill/uL (4.20-5.40); White Blood Cell (WBC) Count 30.2 thou/uL (4.8-10.8)
[2020-02-22 09:59] LABS: #Basophils 0.1 thou/uL (0.0-0.2); #Eosinphils 0.1 thou/uL (0.0-0.7); #Lymphocytes 1.6 thou/uL (1.20-3.40); #Monocytes 1.5 thou/uL (0.11-0.59); #Neutrophils 26.9 thou/uL (1.40-6.50); %Basophils 0.4 % (0.0-1.0); %Eosinophils 0.3 % (0.0-10.0); %Lymphocytes 5.2 % (21.0-51.0)
[2020-02-22 10:00] LABS: Anion Gap 16 mmol/L (10-20); BUN (Urea Nitrogen) 14 mg/dL (9.8-20.1); Calc. Creatinine Clearance 87 mL/min (70-130); Calcium 8.1 mg/dL (7.8-10.44); Carbon Dioxide 20 mmol/L (23-31); Chloride 109 mmol/L (98-107); Estimated GFR-MDRD 89; Glucose 89 mg/dL (80-115); Phosphorus 3.1 mg/dL (2.3-4.7); Sodium 142 mmol/L (136-145)
--- NOTE | 2020-02-22 10:01 | PDOC.PALPN ---
Palliative Progress Note - Subjective Awake, alert. NG in place. Complains of mild abdominal pain, just received pain medication - Objective Vital Signs: Vital Signs - Most Recent Temp Pulse Resp BP Pulse Ox 99.1 F 106 H 20 173/81 H 96 02/22/20 07:44 02/22/20 07:44 02/22/20 07:44 02/22/20 07:44 02/22/20 07:50 - Physical Exam Constitutional: cachectic, emaciated, ill appearing HEENT: EOMI, moist MMs Respiratory: diminished lung sound Deviation from normal: mild shortnes of breath with conversation Gastrointestinal: colostomy Deviation from normal: Wound vac in place over abdominal wound, tenderness Genitourinary: bruce catheter Musculoskeletal: no clubbing, diffuse muscle atrophy, muscle wasting Neurology: moves all 4 limbs, no focal deficits Skin: fragile Deviation from normal: abdominal wound Psychiatric: A&O x 3 - Assessment (1) Malnutrition Code(s): E46 - UNSPECIFIED PROTEIN-CALORIE MALNUTRITION Current Visit: No Status: Acute (2) Metastatic adenocarcinoma Code(s): C79.9 - SECONDARY MALIGNANT NEOPLASM OF UNSPECIFIED SITE Current Visit: No Status: Acute (3) Palliative care encounter Code(s): Z51.5 - ENCOUNTER FOR PALLIATIVE CARE Current Visit: No Status: Acute (4) Physical deconditioning Code(s): R53.81 - OTHER MALAISE Current Visit: No Status: Acute - Plan Plan: Palliative Care communicated with CM and [facility], Hospice came to meet with family yesterday but they had left. To return 02/13/2020 to do intake for transition to hospice. Communicated with Trauma services Suggest addition of Scopolamine Patch and Levsin Mrs Almanzar states she is fearful of passing, discussed we will continue to support her at the hospital. Palliative Care will continue to provide emotional support and therapeutic listening. Will communicate fear with [facility]. [30] minutes spent on this encounter with >50% of the time in counseling and coordination of care. - ROS Constitutional: alert, weakness ENT: alteration in dentition, other (Suctioning secondary to secretions) Respiratory: shortness of breath with extertion Cardiology: other (denies chest pain or discomfort) Gastrointestinal: abdominal pain, constipation, stomach discomfort Neurological: other (denies tremors or numbness)
[2020-02-22 10:05] LABS: Potassium 2.6 mmol/L (3.5-5.1)
--- NOTE | 2020-02-22 10:14 | PDOC.FMACP ---
Advance Care Planning - Problem (1) Malnutrition Status: Acute Code(s): E46 - UNSPECIFIED PROTEIN-CALORIE MALNUTRITION (2) Metastatic adenocarcinoma Status: Acute Code(s): C79.9 - SECONDARY MALIGNANT NEOPLASM OF UNSPECIFIED SITE (3) Palliative care encounter Status: Acute Code(s): Z51.5 - ENCOUNTER FOR PALLIATIVE CARE (4) Physical deconditioning Status: Acute Code(s): R53.81 - OTHER MALAISE - Note Participants: patient, palliative care Summary: Advanced Care Planning was discussed. The diagnosis, prognosis and goals of care were discussed. Appropriate forms and documentation to accomplish the goals of care were discussed. All questions were answered. The Palliative Care Team will be engaged to assist with completion of any outstanding forms that are needed. OOHDNAR previously completed. Mrs Almanzar confirmed DNAR status and no further aggressive measures for her terminal condition. No resuscitation measures including intubation, no PEG/Trach. Transition to hospice and for a natural to occur as disease trajectory continues. MPOA complete and her Sister Abbie and are joint decision makers for Mrs Almanzar is she is unable to make her wishes verbally known. Time Spent (mins): 20 (Discussions and paperwork have been done in layered conversations, revisiting and confirming today. )
[2020-02-22] MEDS ORDERED: Potassium Phosphate 30 MMOL in Sodium Chloride 0.9% 250 ML 250 ML IVPB SCH (10:15)
[2020-02-22] MEDS ORDERED: Calcium Carbonate 500 MG ChewTAB PO PRN (12:26)
--- NOTE | 2020-02-22 13:59 | PRG ---
DATE OF SERVICE: 02/22/2020 SUBJECTIVE: Ms. Almanzar is a 64-year-old female with stage IV colon cancer, reoperative laparotomy with small-bowel resection, and primary anastomosis, colostomy. The patient is currently on inpatient hospice service, and the patient was seen on round this morning. The patient was transferred from ICU yesterday with the decision of comfort measures at a moment. The patient experienced no overnight event. Vital signs had been stable. She complained of abdominal pain this morning, in which she got 2 mg of morphine IV push. The patient denies nausea or vomiting. She developed no fever or shortness of breath. OBJECTIVE: GENERAL: Currently, the patient is lying in bed with no acute respiratory distress. VITAL SIGNS: Temperature 99.1, heart rate is 106, respiratory rate is 20, O2 saturation 96% on room air, and blood pressure 173/81. LUNGS: rhonchi scattered bilaterally. HEART: Regular rate and rhythm. ABDOMEN: Soft, nondistended. Colostomy viable. EXTREMITIES: Neurovascularly intact x4. NEUROLOGIC: No focal neurology deficits. GCS 15. ASSESSMENT: 1. Stage IV colon cancer. 2. Status post re-operative laparotomy with small-bowel resection, primary anastomosis, and colostomy. 3. Severe chronic malnutrition. 4. Acute on chronic blood loss anemia, currently stable. PLAN: The patient is on hospice and comfort care at the moment. Palliative care is on board. The patient is now DNR. Advanced care planning was discussed by a palliative care team. [facility] will talk to the patient regard to plan to transition to hospice service in [facility] tomorrow. The patient was seen and evaluated with Dr. Sarah on round this morning. Job ID: [id number]
--- NOTE | 2020-02-22 15:47 | EKG ---
Test Reason : Blood Pressure : / mmHG Vent. Rate : 088 BPM Atrial Rate : 088 BPM P-R Int : 162 ms QRS Dur : 072 ms QT Int : 396 ms P-R-T Axes : 059 -14 055 degrees QTc Int : 479 ms Normal sinus rhythm Low voltage QRS Inferior infarct , age undetermined Cannot rule out Anterior infarct , age undetermined Abnormal ECG Confirmed by DOC BARRETT DO ([id number]), editorial specialist HANY ABARCA ([id number]) on 02/22/2020 3:47:31 PM Referred By: Confirmed By:DOC BARRETT DO
--- NOTE | 2020-02-24 04:08 | PQF ---
[employer] YusufSAAD HUERTA RICHARD D MD [id number] CLINICAL DOCUMENTATION CLARIFICATION FORM: POST DISCHARGE Addendum to original discharge summary date: ____ Late entry note date: __ DATE: 02/24/2020 ATTN: Eduardo Pham Please exercise your independent, professional judgment in responding to the clarification form. Clinical indicators are provided on the bottom of this form for your review Please check appropriate box(s): HEART FAILURE: A. TYPE: [ ] Systolic / HFrEF [ ] Diastolic / HFpEF [ ] Combined Systolic / Diastolic [ ] Other diagnosis [ ] Unable to determine In addition, please specify: Present on Admission (POA): [ ] Yes [ ] No [ ] Unable to determine For continuity of documentation, please document condition throughout progress notes and discharge summary. Thank You. CLINICAL INDICATORS - SIGNS / SYMPTOMS / LABS Acute congestive heart failure exacerbation. Continue with diuresis, monitoring the patient's urinary output and clincial examination as endpoint - PN 02/18 by Edvin Damian BNP is 2580.2 on 02/18 - Laboratory We will diurese the patient with Lasix this evening. She has mild respiratory distress - PN 02/19 by Gina Alford Her systolic blood pressure initially on arrival in the 70s and then trended down into the 60s - PN 02/20 by Donato Ahn RISKS: Acute respiratory failure - PN 02/20 by Donato Ahn Demand ischemia - PN 02/18 by Gina Alford TREATMENTS: IV Lasix 02/14 to 02/19 - Medications Mechanical ventilation 02/09 to 02/15 and 02/19 to 02/20 - Vital signs 2014 [employer] All Rights Reserved Caroline [email or web address] (This form is maintained as a part of the permanent medical record) [facility]
== END 2020-02-22 17:22 | disposition hospice, inpatient (51) | DRG 907 ==
LOC: ERS 12:29 → SDC/OP 16:54 → CCU 20:26 → SURG A 02-17 13:34 → IMCU/EMU 02-19 18:20 → CCU 02-20 20:40 → ONC 02-21 16:01
PROVIDERS: ADMIT Specialist; ATTEND Specialist
PROC: 0DB80ZZ Excision of Small Intestine, Open Approach (ICD-10-PCS; principal; 2020-02-09)
PROC: 05HY33Z Insertion of Infusion Device into Upper Vein, Percutaneous Approach (ICD-10-PCS; 2020-02-09)
PROC: 30233N1 Transfusion of Nonautologous Red Blood Cells into Peripheral Vein, Percutaneous Approach (ICD-10-PCS; 2020-02-10)
PROC: 30233K1 Transfusion of Nonautologous Frozen Plasma into Peripheral Vein, Percutaneous Approach (ICD-10-PCS; 2020-02-10)
PROC: 30233L1 Transfusion of Nonautologous Fresh Plasma into Peripheral Vein, Percutaneous Approach (ICD-10-PCS; 2020-02-10)
PROC: 5A1955Z Respiratory Ventilation, Greater than 96 Consecutive Hours (ICD-10-PCS; 2020-02-10)
PROC: 3E0336Z Introduction of Nutritional Substance into Peripheral Vein, Percutaneous Approach (ICD-10-PCS; 2020-02-10)
PROC: 0D180Z8 Bypass Small Intestine to Small Intestine, Open Approach (ICD-10-PCS; 2020-02-12)
PROC: 0JU80KZ Supplement of Abdomen Subcutaneous Tissue and Fascia with Nonautologous Tissue Substitute, Open Approach (ICD-10-PCS; 2020-02-14)
PROC: 5A09357 Assistance with Respiratory Ventilation, Less than 24 Consecutive Hours, Continuous Positive Airway Pressure (ICD-10-PCS; 2020-02-19)
PROC: 5A1935Z Respiratory Ventilation, Less than 24 Consecutive Hours (ICD-10-PCS; 2020-02-20)
PROC: 0BH17EZ Insertion of Endotracheal Airway into Trachea, Via Natural or Artificial Opening (ICD-10-PCS; 2020-02-20)
DX: T81.32XA Disruption of internal operation (surgical) wound, not elsewhere classified, initial encounter (principal); K63.1 Perforation of intestine (nontraumatic); E43 Unspecified severe protein-calorie malnutrition; J96.00 Acute respiratory failure, unspecified whether with hypoxia or hypercapnia; D68.9 Coagulation defect, unspecified; E87.1 Hypo-osmolality and hyponatremia; N17.9 Acute kidney failure, unspecified; C18.9 Malignant neoplasm of colon, unspecified; C78.4 Secondary malignant neoplasm of small intestine; C78.7 Secondary malignant neoplasm of liver and intrahepatic bile duct; D62 Acute posthemorrhagic anemia; I24.8 Other forms of acute ischemic heart disease; K56.0 Paralytic ileus; Z51.5 Encounter for palliative care; Z66 Do not resuscitate; Y83.8 Other surgical procedures as the cause of abnormal reaction of the patient, or of later complication, without mention of misadventure at the time of the procedure; E86.0 Dehydration; K59.09 Other constipation; I11.0 Hypertensive heart disease with heart failure; I50.9 Heart failure, unspecified; R53.81 Other malaise; E87.6 Hypokalemia; E83.51 Hypocalcemia; E83.39 Other disorders of phosphorus metabolism; E83.42 Hypomagnesemia; D72.829 Elevated white blood cell count, unspecified; G47.00 Insomnia, unspecified; R44.1 Visual hallucinations; I48.91 Unspecified atrial fibrillation; K29.70 Gastritis, unspecified, without bleeding; Z93.3 Colostomy status; Z68.25 Body mass index [BMI] 25.0-25.9, adult
CPT/HCPCS: 36415; 36416; 36430; 71045; 74018; 80048; 80053; 81001; 82533; 82553; 82805; 83605; 83735; 83880; 84100; 84134; 84484; 85007; 85025; 85027; 85610; 85730; 86850; 86900; 86901; 87086; 88307; 93005; 93010; 93306; 94002; 94003; 94640; 94660; 96365; 96366; 96367; A4217; C9113; J0282; J0360; J1200; J1630; J1642; J1650; J1720; J1815; J1885; J1940; J2001; J2060; J2270; J2405; J2543; J2704; J2765; J2997; J3010; J3370; J3475; J3480; J3490; J7030; J7050; J7070; J7620; P9016; P9045; P9047; P9059; Q4100; S0028

== ENCOUNTER 2020-06-11 13:31 | Emergency (ER) | payer SELFPAY ==
[~2020-06-11 13:31] MED LIST changes: +Iopamidol-370 76% 500 ML 1 ML ONE; -Lidocaine 1% PF 5 ML VIAL ONE; -Metoclopramide HCl 10 MG/2 ML VIAL ONE; -Ondansetron PF 4 MG/2 ML Vial ONE; -PHENYLEPHRINE-NS 100 MCG/ML 10 ML SYRINGE ONE; -PROPOFOL 200 MG/20 ML VIAL ONE; -Rocuronium Bromide 10 MG/ML (10ML VIAL) ONE; -Succinylcholine Chloride 20 MG/ML 10 ml SYRINGE FS ONE
[2020-06-11] MEDS ORDERED: Ondansetron PF 4 MG/2 ML Vial ONE (13:55)
[2020-06-11] MEDS ORDERED: Morphine 4 MG/ML VIAL ONE ×2 (13:55→17:42)
--- NOTE | 2020-06-11 14:54 | RAD ---
EXAM: CHEST ONE VIEW: 06/11/20 HISTORY: Abdominal pain. Nausea and vomiting which started yesterday. Chills. FINDINGS: Monitor leads overlie the chest. Heart size is within normal limits. The lungs are clear. IMPRESSION: No significant acute intrathoracic disease. POS: OFF
[2020-06-11 15:38] LABS: #Lymphocytes 1.9 thou/uL (1.20-3.40); #Monocytes 0.6 thou/uL (0.11-0.59); #Neutrophils 5.5 thou/uL (1.40-6.50); %Basophils 0.5 % (0.0-1.0); %Eosinophils 0.4 % (0.0-10.0); %Lymphocytes 23.6 % (21.0-51.0); %Monocytes 7.7 % (0.0-10.0); %Neutrophils 67.8 % (42.0-75.0); Hemoglobin 13.9 g/dL (12.0-16.0); Mean Corpuscular Hemoglobin 33.3 pg (27.0-31.0); Mean Corpuscular Volume 97.9 fL (78.0-98.0); Platelet Count 209 thou/uL (130-400); RBC Distribution Width 14.8 % (11.5-14.5); Red Blood Cell (RBC) Count 4.17 mill/uL (4.20-5.40); White Blood Cell (WBC) Count 8.2 thou/uL (4.8-10.8)
[2020-06-11 15:43] LABS: Bilirubin Negative (Negative); Blood, Urine Negative (Negative); Clarity Clear (Clear); Glucose, Urine (Dipstick) Normal (Negative); Ketone, Urine Negative (Negative); Leukocyte Negative Leu/uL (Negative); Nitrite Negative (Negative); Protein, Urine (Dipstick) Negative (Neg-Trace); Specific Gravity, Urine 1.011 (1.002-1.036); Urobilinogen Normal mg/dL (Less than 2)
[2020-06-11 16:01] LABS: ALT (SGPT) 13 U/L (8-55); AST (SGOT) 29 U/L (5-34); Albumin 3.3 g/dL (3.4-4.8); Alkaline Phosphatase 127 U/L (40-110); Anion Gap 14 mmol/L (10-20); BUN (Urea Nitrogen) 8 mg/dL (9.8-20.1); Bilirubin, Total 0.7 mg/dL (0.2-1.2); Calc. Creatinine Clearance 0 mL/min (70-130); Calcium 8.2 mg/dL (7.8-10.44); Carbon Dioxide 21 mmol/L (23-31); Chloride 101 mmol/L (98-107); Estimated GFR-MDRD Greater than 90; Globulin 3.9 g/dL (2.4-3.5); Glucose 80 mg/dL (80-115); Lipase 12 U/L (8-78); Magnesium 2.1 mg/dL (1.6-2.6); Protein, Total 7.2 g/dL (6.0-8.3); Sodium 132 mmol/L (136-145)
--- NOTE | 2020-06-11 17:40 | CT ---
EXAM: ABDOMEN AND PELVIC CT SCAN WITH IV CONTRAST: 06/11/20 HISTORY: Abdominal pain. COMPARISON: 02/03/20. FINDINGS: There are extensive liver metastasis showing considerable increase in size since the prior study. The re is a right lobe mass which now measures 2.7 cm where it previously measured 1.2 cm. A left lobe ma ss now measures 2.5 cm in size where it previously measured 1.6 cm in size. A lateral left lobe of li emanuel mass now measures 1.7 cm where it previously measured 0.6 cm. There is some persistent fat strand ing in the upper central and right upper mesentery which was present on the prior study. There are no w some lymph nodes up to 0.7 cm in size short axis in the right upper quadrant mesentery. Postoperati ve changes with left sided colostomy is noted. No evidence for bowel obstruction. Again noted is a la rge rounded calcification which appears to be adjacent to the common bile duct. Stable appearing dila elicia pancreatic duct. Some scattered retroperitoneal adenopathy showing slight enlargement when compar ed to prior exam. No abscess or significant abnormal fluid collection within the abdomen or pelvis. IMPRESSION: Fairly extensive enlarging liver metastasis. Developing right upper quadrant mesenteric enlarged lymph nodes. Extensive postoperative changes as above. Slight thickening of the wall of the distal esophagus versus small hiatal hernia. Other findings as a debra. POS: OFF
[2020-06-11] MEDS ORDERED: Promethazine HCl 25 MG/ML VIAL ONE (17:42)
== END 2020-06-11 19:45 ==
LOC: ERS 13:31
DX: R10.32 Left lower quadrant pain (principal); R11.0 Nausea; I10 Essential (primary) hypertension; F17.210 Nicotine dependence, cigarettes, uncomplicated
CPT/HCPCS: 71045; 74177; 80053; 81003; 83605; 83690; 83735; 85025; 87077; 87086; 87186; 93005; 96361; 96365; 96375; 96376; J2270; J2405; J2550; Q9967